=== PATIENT | male | born 1960 | race Caucasian/White ===

== ENCOUNTER 2016-08-10 07:15 | Emergency (ER) | payer SELFPAY ==
[~2016-08-10] VITALS: Ht 177.8 cm; Wt 111.5 kg
[~2016-08-10 07:15] MED LIST: ALBU8I INH; ALLO300T2 PO; ATEN-102 PO; ATOR20TA PO; CONTOUR NEXT EZ BLEZ XX; HYDR10SO PO; INSU-118 SQ; LISI40TA PO; NORC10TA2 PO; NOVOLOGSS SQ; PRED10PA PO; RANI150 PO; RIVA10 PO; WALKER STANDARD; ZITH250T PO
[2016-08-10 07:17] VITALS: BP 177/112; PULSE 88; RESP 20; TEMP 98.7; O2SAT 99
[2016-08-10 07:38] VITALS: BP 148/86
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
[2016-08-10] MEDS ORDERED: ALLO300T2 PO (07:48)
[2016-08-10] MEDS ORDERED: ATOR20TA15 PO (07:48)
[2016-08-10] MEDS ORDERED: NAPR500T PO (07:48)
[2016-08-10] MEDS ORDERED: ATEN50TA PO (07:48)
[2016-08-10] MEDS ORDERED: LISI40TA PO (07:48)
[2016-08-10] MEDS ORDERED: HYDR-3583 PO (07:48)
[2016-08-10] MEDS ORDERED: ALBUAER3 INH (07:48)
[2016-08-10] MEDS ORDERED: KETOROLAC TROMETHAMINE 60 MG/2 ML (IM) VIAL IM ONE (08:00)
--- NOTE | 2016-08-10 08:14 | RADRPT ---
EXAM DATE/TIME: 08/10/2016 08:07 [facility] COMPARISON: No previous studies available for comparison. INDICATIONS : Fall, left hand pain and swelling. MEDICAL HISTORY : None. SURGICAL HISTORY : None. ENCOUNTER: Initial ACUITY: 3 days PAIN SCORE: 9/10 LOCATION: Left hand FINDINGS: Normal bone density. Joint space widths are intact. There is an impacted nondisplaced fracture of the distal radial metaphysis with intra-articular extension. CONCLUSION: Distal radius fracture is noted with intra-articular extension. Mayo Fields MD on August 10, 2016 at 8:12 Board Certified Radiologist. This report was verified electronically.
--- NOTE | 2016-08-10 08:15 | RADRPT ---
EXAM DATE/TIME: 08/10/2016 08:05 [facility] COMPARISON: HAND LEFT COMPLETE ([id number]), August 10, 2016, 8:07. INDICATIONS : Fall, left wrist pain and swelling. MEDICAL HISTORY : None. SURGICAL HISTORY : None. ENCOUNTER: Initial ACUITY: 3 days PAIN SCORE: 9/10 LOCATION: Left wrist FINDINGS: There is a fracture of the distal radial metaphysis identified with intra-articular extension and mil d impaction. No other fractures are seen. Normal bone density. CONCLUSION: Distal radius fracture. Mayo Fields MD on August 10, 2016 at 8:13 Board Certified Radiologist. This report was verified electronically.
== END 2016-08-10 08:45 | disposition home or self-care (01) ==
LOC: NEPK 07:15
DX: S52.592A Other fractures of lower end of left radius, initial encounter for closed fracture (principal); I10 Essential (primary) hypertension; J45.909 Unspecified asthma, uncomplicated; M10.9 Gout, unspecified; W01.0XXA Fall on same level from slipping, tripping and stumbling without subsequent striking against object, initial encounter; Y93.9 Activity, unspecified; Y92.9 Unspecified place or not applicable; Y99.9 Unspecified external cause status
CPT/HCPCS: 73110; 73130; 96372; 99283; J1885

== ENCOUNTER 2017-05-19 09:38 | Inpatient (IN) | payer SELFPAY ==
[~2017-05-19] VITALS: Ht 177.8 cm; Wt 105.4 kg
[~2017-05-19 09:38] MED LIST changes: -ALBU8I INH; +ALBUAER3 INH; -ATEN-102 PO; +ATEN50TA PO; -ATOR20TA PO; +ATOR20TA15 PO; -CONTOUR NEXT EZ BLEZ XX; +HYDR-3583 PO; -HYDR10SO PO; -INSU-118 SQ; +NAPR500T2 PO; -NORC10TA2 PO; -NOVOLOGSS SQ; -PRED10PA PO; -RANI150 PO; -RIVA10 PO; -WALKER STANDARD; -ZITH250T PO
[2017-05-19 09:52] VITALS: BP 108/73; PULSE 104; RESP 20; TEMP 97.8; O2SAT 99
[2017-05-19] MEDS ORDERED: SODIUM CHLOR 0.9% 1000 ML INJ 1,000 ML IV ONE ×2 (10:15)
[2017-05-19] MEDS ORDERED: ONDANSETRON HCL 4 MG/2 ML VIAL IV PUSH ONE (10:15)
--- NOTE | 2017-05-19 10:18 | PD ---
HPI Chief Complaint: General Weakness Time Seen by Provider: 10:01 Travel History International Travel<30 days: No Contact w/Intl Traveler<30days: No Traveled to known affect area: No History of Present Illness HPI This 56-year-old male says he feels like he has no energy and he feels very weak. He says he been sick since the middle of April. He started off with having shaking and sweating. He was coughing a lot for about a week. He says he had a 26 pound weight loss since illness started. His coughing has subsided somewhat. He has been having diarrhea for the last week or so. He has not been on any antibiotics. He had surgery for colon cancer about 20 years ago. Says he has not been eating. He does not smoke cigarettes. He drinks daily PFSH Past Medical History Arthritis: Yes Asthma: Yes Autoimmune Disease: No Cancer: Yes (COLON CA) Cardiovascular Problems: No Chemotherapy: Yes Cerebrovascular Accident: Yes Diabetes: No Endocrine: No Gastrointestinal Disorders: Yes (GERD) Gout: Yes Genitourinary: No Hepatitis: No Hiatal Hernia: No Hypertension: Yes Immune Disorder: No Implanted Vascular Access Dvce: Yes Musculoskeletal: Yes (LEFT HIP, SCIATICA) Neurologic: No Psychiatric: No Reproductive: No Respiratory: Yes (ASTHMA) Past Surgical History Abdominal Surgery: Yes (COLON RESECTION 1996) AICD: No Body Medical Devices: LEFT ANKLE PINS, SCREWS Cardiac Surgery: No Ear Surgery: No Endocrine Surgery: No Eye Surgery: Yes (LEFT CATARACT) Genitourinary Surgery: No Joint Replacement: No Oral Surgery: Yes (TONSILLECTOMY) Pacemaker: No Thoracic Surgery: No Social History Alcohol Use: Yes (occ) Tobacco Use: No Substance Use: No Allergies-Medications (Allergen,Severity, Reaction): Coded Allergies: shellfish derived (Unverified Allergy, Severe, EDEMA, HIVES, 05/19/17) Reported Meds & Prescriptions Reported Meds & Active Scripts Active Reported Lidoderm (Lidocaine) 5 % Adh..patch Flexeril (Cyclobenzaprine HCl) 10 Mg Tab 10 Mg PO TID Proair Hfa 8.5 GM Inh (Albuterol Sulfate) 90 Mcg/Act Aer 2 Puff INH BID PRN 108 mcg/actuation Naproxen 500 Mg Tab 500 Mg PO BID Allopurinol 300 Mg Tab 300 Mg PO DAILY Atorvastatin (Atorvastatin Calcium) 20 Mg Tab 20 Mg PO HS Atenolol 50 Mg Tab 50 Mg PO DAILY Lisinopril 40 Mg Tab 40 Mg PO DAILY Review of Systems General / Constitutional: Positive: Chills, No: Fever Eyes: No: Diploplia, Blurred Vision HENT: No: Headaches Cardiovascular: No: Chest Pain or Discomfort, Palpitations Respiratory: Positive: Cough, No: Shortness of Breath Gastrointestinal: Positive: Nausea, Diarrhea, Loss of Appetite Genitourinary: No: Urgency, Frequency Musculoskeletal: Positive: Myalgias, No: Arthralgias Skin: No Rash Neurologic: Positive: Weakness Psychiatric: No: Anxiety, Depression Hematologic/Lymphatic: No: Easy Bruising Physical Exam Narrative GENERAL: Well-developed male. Blood pressure is 108/73 SKIN: Focused skin assessment warm/dry. HEAD: Atraumatic. Normocephalic. EYES: Pupils equal and round. No scleral icterus. No injection or drainage. ENT: No nasal bleeding or discharge. Mucous membranes pink and moist. NECK: Trachea midline. No JVD. CARDIOVASCULAR: Regular rate and rhythm. No murmur appreciated. RESPIRATORY: No accessory muscle use. Clear to auscultation. Breath sounds equal bilaterally. GASTROINTESTINAL: Abdomen soft, non-tender, nondistended. Hepatic and splenic margins not palpable. MUSCULOSKELETAL: No obvious deformities. No clubbing. No cyanosis. No edema. Some mottling of the lower extremities. Dorsalis pedal pulses are intact NEUROLOGICAL: Awake and alert. No obvious cranial nerve deficits. Motor grossly within normal limits. Normal speech. PSYCHIATRIC: Appropriate mood and affect; insight and judgment normal. Data Data Last Documented VS Vital Signs Date Time Temp Pulse Resp B/P (MAP) Pulse Ox O2 Delivery O2 Flow Rate FiO2 05/19/17 09:52 97.8 104 20 108/73 (85) 99 Orders Orders Complete Blood Count With Diff (05/19/17 10:11) Comprehensive Metabolic Panel (05/19/17 10:11) Urinalysis - C+S If Indicated (05/19/17 10:11) Magnesium (Mg) (05/19/17 10:11) Thyroid Stimulating Hormone (05/19/17 10:11) Enteric Path (Stool) (05/19/17 10:11) C Diff Toxin Pcr (05/19/17 10:11) Influenzae A/B Antigen (05/19/17 10:11) Chest, Single Ap (05/19/17 10:11) Sodium Chlor 0.9% 1000 Ml Inj (Ns 1000 M (05/19/17 10:15) Sodium Chlor 0.9% 1000 Ml Inj (Ns 1000 M (05/19/17 10:15) Ondansetron Inj (Zofran Inj) (05/19/17 10:15) Blood Culture (05/19/17 10:11) Lactic Acid (05/19/17 10:11) Labs Laboratory Tests Test 05/19/17 10:35 05/19/17 10:41 White Blood Count 13.2 TH/MM3 Red Blood Count 3.19 MIL/MM3 Hemoglobin 10.1 GM/DL Hematocrit 31.4 % Mean Corpuscular Volume 98.5 FL Mean Corpuscular Hemoglobin 31.8 PG Mean Corpuscular Hemoglobin Concent 32.3 % Red Cell Distribution Width 15.6 % Platelet Count 543 TH/MM3 Mean Platelet Volume 7.8 FL Neutrophils (%) (Auto) 88.3 % Lymphocytes (%) (Auto) 5.2 % Monocytes (%) (Auto) 3.3 % Eosinophils (%) (Auto) 0.4 % Basophils (%) (Auto) 2.8 % Neutrophils # (Auto) 11.6 TH/MM3 Lymphocytes # (Auto) 0.7 TH/MM3 Monocytes # (Auto) 0.4 TH/MM3 Eosinophils # (Auto) 0.1 TH/MM3 Basophils # (Auto) 0.4 TH/MM3 CBC Comment AUTO DIFF Blood Urea Nitrogen 51 MG/DL Creatinine 2.20 MG/DL Random Glucose 147 MG/DL Total Protein 8.8 GM/DL Albumin 2.1 GM/DL Calcium Level 9.1 MG/DL Magnesium Level 1.7 MG/DL Alkaline Phosphatase 167 U/L Aspartate Amino Transf (AST/SGOT) 103 U/L Alanine Aminotransferase (ALT/SGPT) 135 U/L Total Bilirubin 0.4 MG/DL Sodium Level 133 MEQ/L Potassium Level 4.8 MEQ/L Chloride Level 105 MEQ/L Carbon Dioxide Level 15.2 MEQ/L Anion Gap 13 MEQ/L Estimat Glomerular Filtration Rate 31 ML/MIN Thyroid Stimulating Hormone 3rd Gen 2.700 uIU/ML Lactic Acid Level 1.2 mmol/L MDM Medical Decision Making Medical Screen Exam Complete: Yes Emergency Medical Condition: Yes Medical Record Reviewed: Yes Differential Diagnosis Differential includes pneumonia, gastroenteritis, electrolyte imbalance, Narrative Course Chest x-ray is negative. His hemoglobin is 10 with a white count of 13.2. BUN is 51 with creatinine of 2.2. Lactic acid 1.2. Bicarb is 15. Influenza test is positive for influenza A Diagnosis Primary Impression: Influenza A Additional Impression: Dehydration Sony Edouard MD May 19, 2017 10:18
[2017-05-19 10:50] LABS: AUTOMATED NEUTROPHIL # 11.6 TH/MM3 (1.8-7.7); BASOPHIL # 0.4 TH/MM3 (0-0.2); BASOPHIL % 2.8 % (0.0-2.0); EOSINOPHIL # 0.1 TH/MM3 (0-0.4); EOSINOPHIL % 0.4 % (0.0-4.0); HEMATOCRIT 31.4 % (39.0-51.0); HEMOGLOBIN 10.1 GM/DL (13.0-17.0); LYMPH % 5.2 % (9.0-44.0); LYMPHOCYTE # 0.7 TH/MM3 (1.0-4.8); MEAN CELL VOLUME 98.5 FL (80.0-100.0); MEAN CORPUSCULAR HEMOGLOBIN 31.8 PG (27.0-34.0); MEAN CORPUSCULAR HGB CONC 32.3 % (32.0-36.0); MEAN PLATELET VOLUME 7.8 FL (7.0-11.0); MONO % 3.3 % (0.0-8.0); MONOCYTE # 0.4 TH/MM3 (0-0.9); NEUT % 88.3 % (16.0-70.0); PLATELET COUNT 543 TH/MM3 (150-450); RED BLOOD COUNT 3.19 MIL/MM3 (4.50-5.90); RED CELL DISTRIBUTION WIDTH 15.6 % (11.6-17.2); WHITE BLOOD COUNT 13.2 TH/MM3 (4.0-11.0)
--- NOTE | 2017-05-19 10:55 | RADRPT ---
EXAM DATE/TIME: 05/19/2017 10:16 [facility] COMPARISON: CHEST PA & LAT, October 03, 2015, 20:08. CHEST SINGLE AP, October 19, 2014, 11:50. INDICATIONS : Cough, weight loss, diarrhea, loss of appetite. MEDICAL HISTORY : Hypertension. Gastroesophageal reflux disease. Carcinoma, colon. Tinnitus. CVA. Asthma. Sciatica. Gout. Chemotherapy. SURGICAL HISTORY : Tonsillectomy. Orif left foot. Colon surgery. ENCOUNTER: Initial ACUITY: 2 weeks PAIN SCORE: 0/10 LOCATION: chest FINDINGS: Portable AP view of the chest demonstrates a normal-sized cardiac silhouette. No effusion, consolidat ion, or pneumothorax is identified. The bones and soft tissues demonstrate no acute finding. There ar e multiple old left rib fractures. There is a stable displaced ununited left mid clavicle fracture. CONCLUSION: 1. No acute cardiopulmonary abnormality is identified. 2. Stable old left mid clavicle fracture and multiple old left rib fractures. Dariusz Arreguin MD on May 19, 2017 at 10:53 Board Certified Radiologist. This report was verified electronically.
[2017-05-19 11:02] LABS: CHLORIDE 105 MEQ/L (98-107); SODIUM (NA) 133 MEQ/L (136-145)
[2017-05-19 11:05] LABS: ALBUMIN 2.1 GM/DL (3.4-5.0); BICARBONATE 15.2 MEQ/L (21.0-32.0); BLOOD UREA NITROGEN 51 MG/DL (7-18); CALCIUM 9.1 MG/DL (8.5-10.1); GLUCOSE,RANDOM 147 MG/DL (74-106); MAGNESIUM 1.7 MG/DL (1.5-2.5)
[2017-05-19 11:08] LABS: ALT (GPT) 135 U/L (12-78); AST (GOT) 103 U/L (15-37); GLOMERULAR FILTRATION RATE 31 ML/MIN (>89)
[2017-05-19 11:10] LABS: TOTAL BILIRUBIN ADULT 0.4 MG/DL (0.2-1.0); TOTAL PROTEIN 8.8 GM/DL (6.4-8.2)
[2017-05-19] MEDS ORDERED: CYCL10TA PO (11:10)
[2017-05-19] MEDS ORDERED: LIDO1ADH4 (11:10)
[2017-05-19 11:11] LABS: ALKALINE PHOSPHATASE 167 U/L (45-117)
[2017-05-19 11:32] VITALS: BP 97/57; PULSE 88; O2SAT 100
[2017-05-19 12:30] VITALS: BP 118/67; PULSE 82; RESP 26; TEMP 98.6; O2SAT 100
[2017-05-19 16:00] VITALS: BP 122/77; PULSE 90; RESP 26; TEMP 98.3
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
[2017-05-19] MEDS ORDERED: RESP: ALBUTEROL 1.25 MG/3 ML NEB (PRN) NEB (17:15)
[2017-05-19 17:54] LABS: INTERNATIONAL NORMALIZED RATIO 1.1 RATIO; PROTHROMBIN TIME - PATIENT 11.1 SEC (9.8-11.6)
[2017-05-19] MEDS: SODIUM CHLOR 0.9% 1000 ML INJ 1,000 ML IV SCH (17:56)
[2017-05-19] MEDS: CYCLOBENZAPRINE HCL 10 MG TAB PO SCH (17:57)
[2017-05-19] MEDS: ACETAMINOPHEN/HYDROcodone 325 MG/5 MG TAB PO PRN (17:58)
[2017-05-19] MEDS: ATORVASTATIN 20 MG TAB PO SCH (19:33)
[2017-05-19 20:00] VITALS: BP 110/67; PULSE 80; RESP 20; TEMP 98.8; O2SAT 96
[2017-05-20] VITALS (8 sets, daily range): BP systolic 94–133; BP diastolic 54–73; PULSE 72–88; RESP 18–25; TEMP 98.3–98.7; O2SAT 96–98
[2017-05-20] MEDS: ACETAMINOPHEN/HYDROcodone 325 MG/5 MG TAB PO PRN ×3 (03:07→17:37)
[2017-05-20] MEDS: SODIUM CHLOR 0.9% 1000 ML INJ 1,000 ML IV SCH ×2 (03:17→13:14)
[2017-05-20 04:57] LABS: CHLORIDE 111 MEQ/L (98-107); SODIUM (NA) 136 MEQ/L (136-145)
[2017-05-20 05:25] LABS: ALBUMIN 1.8 GM/DL (3.4-5.0); ALKALINE PHOSPHATASE 135 U/L (45-117); ALT (GPT) 105 U/L (12-78); AST (GOT) 73 U/L (15-37); BICARBONATE 13.2 MEQ/L (21.0-32.0); BLOOD UREA NITROGEN 42 MG/DL (7-18); CALCIUM 7.9 MG/DL (8.5-10.1); GLOMERULAR FILTRATION RATE 42 ML/MIN (>89); GLUCOSE,RANDOM 104 MG/DL (74-106); TOTAL BILIRUBIN ADULT 0.3 MG/DL (0.2-1.0); TOTAL PROTEIN 7.5 GM/DL (6.4-8.2)
[2017-05-20] MEDS: ATENOLOL 50 MG TAB PO SCH (09:00)
[2017-05-20] MEDS: CYCLOBENZAPRINE HCL 10 MG TAB PO SCH ×3 (09:00→15:50)
[2017-05-20 10:43] LABS: AUTOMATED NEUTROPHIL # 9.7 TH/MM3 (1.8-7.7); BASOPHIL % 0.2 % (0.0-2.0); EOSINOPHIL % 0.3 % (0.0-4.0); HEMATOCRIT 27.2 % (39.0-51.0); HEMOGLOBIN 8.8 GM/DL (13.0-17.0); LYMPH % 6.7 % (9.0-44.0); LYMPHOCYTE # 0.7 TH/MM3 (1.0-4.8); MEAN CELL VOLUME 99.6 FL (80.0-100.0); MEAN CORPUSCULAR HEMOGLOBIN 32.2 PG (27.0-34.0); MEAN CORPUSCULAR HGB CONC 32.3 % (32.0-36.0); MEAN PLATELET VOLUME 6.6 FL (7.0-11.0); MONO % 5.2 % (0.0-8.0); MONOCYTE # 0.6 TH/MM3 (0-0.9); NEUT % 87.6 % (16.0-70.0); PLATELET COUNT 628 TH/MM3 (150-450); RED BLOOD COUNT 2.73 MIL/MM3 (4.50-5.90); RED CELL DISTRIBUTION WIDTH 15.1 % (11.6-17.2)
[2017-05-20] MEDS ORDERED: diphenhydrAMINE HCL 50 MG/ML VIAL IV PUSH ONE (11:15)
[2017-05-20] MEDS ORDERED: DIATRIZOATE MEGLUM/DIATRIZOATE SOD 9 ML CUP PO ONE (11:30)
[2017-05-20] MEDS ORDERED: IOHEXOL 350 MG/ML 10 ML VIAL (for RAD DIAG) IVCONTRAST ONE (13:51)
--- NOTE | 2017-05-20 14:07 | RADRPT ---
EXAM DATE/TIME: 05/20/2017 13:39 [facility] COMPARISON: No previous studies available for comparison. INDICATIONS : Lower abdominal pain, nausea, vomiting and diarrhea x 2 weeks. Loss of apetite. Weight loss. IV CONTRAST: 85 cc Omnipaque 350 (iohexol) IV ORAL CONTRAST: Prescribed oral contrast ingested. RADIATION DOSE: 21.53 CTDIvol (mGy) MEDICAL HISTORY : Carcinoma, colon. Gastroesophageal reflux disease. Cerebrovascular disease.Hypertension. Asthma. SURGICAL HISTORY : Colon resection. ENCOUNTER: Initial ACUITY: 2 weeks PAIN SCALE: 4/10 LOCATION: Bilateral lower quadrant TECHNIQUE: Volumetric scanning of the abdomen and pelvis was performed. Using automated exposure control and ad justment of the mA and/or kV according to patient size, radiation dose was kept as low as reasonably achievable to obtain optimal diagnostic quality images. DICOM format image data is available electro nically for review and comparison. FINDINGS: LOWER LUNGS: The visualized lower lungs are clear. LIVER: There is a nearly 10 cm low density heterogeneous process in the liver in the inferior aspect of the right lobe which may be multilocular abscess. Neoplastic mass would the additional consideration. The re is no evidence of biliary ductal dilatation. SPLEEN: Normal size without lesion. PANCREAS: Within normal limits. KIDNEYS: Normal in size and shape. There is no mass, stone or hydronephrosis. ADRENAL GLANDS: Within normal limits. VASCULAR: There is no aortic aneurysm. BOWEL/MESENTERY: There is mild heterogeneous wall thickening, diverticular involvement and adjacent fatty tissue indur ation involving the distal descending colon and several involving a section of the sigmoid colon in t he upper central pelvis. The appearance presumably reflect multifocal diverticulitis. There is no luana dence of obstruction. No extraluminal gas or fluid is identified. There is no evidence of mesenteric adenopathy. ABDOMINAL WALL: Within normal limits. RETROPERITONEUM: There is no lymphadenopathy. BLADDER: No wall thickening or mass. REPRODUCTIVE: Within normal limits. INGUINAL: There is no lymphadenopathy or hernia. MUSCULOSKELETAL: Total hip arthroplasty. Degenerative changes in the right hip and spine. Multiple healed low lateral left sided rib fractures. CONCLUSION: 2 separate abnormal appearing areas of the distal colon with appearance most consistent with multifoc al diverticulitis. Low density right lobe liver process is likely multilocular abscess which does not appear amenable to percutaneous drainage. Neoplastic mass would be the alternative possibility.. Dariusz Fajardo MD on May 20, 2017 at 13:56 Board Certified Radiologist. This report was verified electronically.
[2017-05-20 16:11] LABS: BILIRUBIN, URINE NEG (NEG); BLOOD, URINE NEG (NEG); GLUCOSE,URINE NEG (NEG); KETONE, URINE NEG (NEG); NITRITE,URINE NEG (NEG); URINE LEUKOCYTE ESTERASE NEG (NEG)
[2017-05-20 16:18] LABS: URINE COLOR STRAW (YELLW/STRAW)
[2017-05-20 16:20] LABS: AMORPHOUS SEDIMENT, URINE FEW; BACTERIA, URINE MOD /hpf; SQUAMOUS EPITHELIAL CELL URINE 0-5 /hpf (0-5)
[2017-05-20] MEDS: CIPROFLOXACIN 200 MG PREMIX 100 ML IV SCH (17:27)
[2017-05-20] MEDS: metroNIDAZOLE 500 MG INJ 100 ML IV SCH (17:27)
--- NOTE | 2017-05-20 18:00 | HHI.PR ---
Subjective Remarks Nursing reports that the patient is having intermittent watery stools. Is reporting to have some intermittent abdominal cramping. Patient did tolerate breakfast this morning. Says he feels somewhat better than yesterday in general. He also tolerated the CT scan well with contrast. Objective Vital Signs Date Time Temp Pulse Resp B/P (MAP) Pulse Ox O2 Delivery O2 Flow Rate FiO2 05/20/17 12:00 98.4 05/20/17 10:51 114/64 (81) 05/20/17 09:04 98.5 88 19 94/59 (71) 05/20/17 03:31 98.4 88 18 96/68 (77) 98 05/20/17 00:00 98.4 75 18 106/54 (71) 96 05/19/17 20:00 98.8 80 20 110/67 (81) 96 I/O 05/19/17 05/19/17 05/19/17 05/20/17 05/20/17 05/20/17 07:00 15:00 23:00 07:00 15:00 23:00 Intake Total 2000 ml 480 ml 1300 ml 700 ml Output Total 450 ml 300 ml Balance 2000 ml 30 ml 1000 ml 700 ml Intake Oral 480 ml IV Total 2000 ml 1300 ml 700 ml Output Urine Total 450 ml 300 ml # Bowel Movements 0 Result Diagram: 05/20/17 1003 05/20/17 0425 Objective Remarks Lying in bed, no acute distress, awake, alert Abdomen is soft, no lv tenderness palpation, nondistended A/P Assessment and Plan 56-year-old white male being admitted for possible sepsis and acute kidney injury Possible sepsis secondary to influenza -Blood cultures have been drawn -Given lack of fevers, will hold off on administering antibiotics for now -Chest x-ray negative upon admission OMAR -Improving with IV fluids, trend in a.m. Transaminitis -Likely fatty liver, improving, trend in a.m. diarrhea w/ weight loss -C. difficile is negative, performed CT scan which shows most likely diverticulitis, starting Cipro and Flagyl -Checking stool Hemoccult given past history of colon CA Hypertension -Continue home atenolol, holding the lisinopril in light of OMAR Kwame Vaughn MD May 20, 2017 18:00
[2017-05-20] MEDS: ATORVASTATIN 20 MG TAB PO SCH (20:33)
[2017-05-21] VITALS: BP 106/56; PULSE 75; RESP 20; TEMP 98.4; O2SAT 98
[2017-05-21] MEDS: SODIUM CHLOR 0.9% 1000 ML INJ 1,000 ML IV SCH ×2 (00:16→10:39)
[2017-05-21] MEDS: metroNIDAZOLE 500 MG INJ 100 ML IV SCH ×3 (00:16→16:00)
[2017-05-21] MEDS: ACETAMINOPHEN/HYDROcodone 325 MG/5 MG TAB PO PRN ×2 (00:22→10:37)
[2017-05-21 04:00] VITALS: BP 105/72; PULSE 76; RESP 22; TEMP 97.5; O2SAT 100
[2017-05-21] MEDS: CIPROFLOXACIN 200 MG PREMIX 100 ML IV SCH (04:29)
[2017-05-21 08:26] VITALS: BP 111/74; PULSE 92; TEMP 97.7; O2SAT 99
[2017-05-21] MEDS: CYCLOBENZAPRINE HCL 10 MG TAB PO SCH ×2 (08:26→12:15)
[2017-05-21] MEDS: ATENOLOL 50 MG TAB PO SCH (08:27)
[2017-05-21 12:00] VITALS: BP 124/76; PULSE 106; RESP 20; TEMP 97.1; O2SAT 100
[2017-05-21] MEDS ORDERED: CIPR750T2 PO (15:52)
[2017-05-21] MEDS ORDERED: METR1TAB76 PO (15:52)
--- NOTE | 2017-05-21 15:53 | HHI.DCPOC ---
Discharge Care Plan Diagnosis: (1) Diverticulitis Goals to Promote Your Health * To prevent worsening of your condition and complications * To maintain your health at the optimal level Directions to Meet Your Goals Take your medications as prescribed Follow your dietary instruction Follow activity as directed Keep your appointments as scheduled Take your immunizations and boosters as scheduled If your symptoms worsen call your PCP, if no PCP go to Urgent Care Center or Emergency Room Smoking is Dangerous to Your Health. Avoid second hand smoke Call the 24-hour hour crisis hotline for domestic abuse at Kwame Wild MD May 21, 2017 15:53
[2017-05-21] MEDS ORDERED: TRAM50TA PO (15:55)
--- NOTE | 2017-05-21 15:56 | HHI.DS ---
Discharge Summary Admission Date May 19, 2017 at 11:37 Discharge Date: May 21, 2017 Admitting Diagnosis ACUTE KIDNEY INJURY, DEHYDRATION, INFLUENZA (1) Diverticulitis ICD Code: K57.92 - Diverticulitis of intestine, part unspecified, without perforation or abscess without bleeding (2) Influenza A ICD Code: J10.1 - Influenza due to other identified influenza virus with other respiratory manifestations Status: Acute (3) Dehydration ICD Code: E86.0 - Dehydration Status: Acute (4) OMAR (acute kidney injury) ICD Code: N17.9 - Acute kidney injury Status: Acute Procedures none Brief History - From Admission 56-year-old white male being admitted for possible sepsis and acute kidney injury. Patient reports being in his usual state of health until about 2 weeks ago after returning from a flight from [place] he began feeling overall weakness , poor endurance, decreased appetite, increased dyspnea upon rest, intermittent nausea and diarrhea. He denies having any black stool or bright red blood per rectum. Reports walking shorter distances due to exhaustion and dyspnea. Patient does report a mysterious 20 pound weight loss in the last few months and noticing a change in his pant size. CBC/BMP: 05/20/17 1003 05/20/17 0425 Significant Findings Laboratory Tests Test 05/19/17 10:35 05/19/17 10:41 05/19/17 17:30 05/19/17 22:50 White Blood Count 13.2 TH/MM3 (4.0-11.0) Red Blood Count 3.19 MIL/MM3 (4.50-5.90) Hemoglobin 10.1 GM/DL (13.0-17.0) Hematocrit 31.4 % (39.0-51.0) Platelet Count 543 TH/MM3 (150-450) Neutrophils (%) (Auto) 88.3 % (16.0-70.0) Lymphocytes (%) (Auto) 5.2 % (9.0-44.0) Basophils (%) (Auto) 2.8 % (0.0-2.0) Neutrophils # (Auto) 11.6 TH/MM3 (1.8-7.7) Lymphocytes # (Auto) 0.7 TH/MM3 (1.0-4.8) Basophils # (Auto) 0.4 TH/MM3 (0-0.2) Platelet Estimate HIGH (NORMAL) Blood Urea Nitrogen 51 MG/DL (7-18) Creatinine 2.20 MG/DL (0.60-1.30) Random Glucose 147 MG/DL (74-106) Total Protein 8.8 GM/DL (6.4-8.2) Albumin 2.1 GM/DL (3.4-5.0) Alkaline Phosphatase 167 U/L (45-117) Aspartate Amino Transf (AST/SGOT) 103 U/L (15-37) Alanine Aminotransferase (ALT/SGPT) 135 U/L (12-78) Sodium Level 133 MEQ/L (136-145) Carbon Dioxide Level 15.2 MEQ/L (21.0-32.0) Estimat Glomerular Filtration Rate 31 ML/MIN (>89) Test 05/20/17 04:25 05/20/17 10:03 05/20/17 15:53 Blood Urea Nitrogen 42 MG/DL (7-18) Creatinine 1.70 MG/DL (0.60-1.30) Albumin 1.8 GM/DL (3.4-5.0) Calcium Level 7.9 MG/DL (8.5-10.1) Alkaline Phosphatase 135 U/L (45-117) Aspartate Amino Transf (AST/SGOT) 73 U/L (15-37) Alanine Aminotransferase (ALT/SGPT) 105 U/L (12-78) Chloride Level 111 MEQ/L (98-107) Carbon Dioxide Level 13.2 MEQ/L (21.0-32.0) Estimat Glomerular Filtration Rate 42 ML/MIN (>89) Red Blood Count 2.73 MIL/MM3 (4.50-5.90) Hemoglobin 8.8 GM/DL (13.0-17.0) Hematocrit 27.2 % (39.0-51.0) Platelet Count 628 TH/MM3 (150-450) Mean Platelet Volume 6.6 FL (7.0-11.0) Neutrophils (%) (Auto) 87.6 % (16.0-70.0) Lymphocytes (%) (Auto) 6.7 % (9.0-44.0) Neutrophils # (Auto) 9.7 TH/MM3 (1.8-7.7) Lymphocytes # (Auto) 0.7 TH/MM3 (1.0-4.8) Urine Bacteria MOD /hpf (NONE) Imaging Last Impressions Abdomen/Pelvis CT 05/20/17 0000 Signed Impressions: Service Date/Time: Saturday, May 20, 2017 13:39 - CONCLUSION: 2 separate abnormal appearing areas of the distal colon with appearance most consistent with multifocal diverticulitis. Low density right lobe liver process is likely multilocular abscess which does not appear amenable to percutaneous drainage. Neoplastic mass would be the alternative possibility.. Dariusz Fajardo MD Chest X-Ray 05/19/17 1011 Signed Impressions: Service Date/Time: Friday, May 19, 2017 10:16 - CONCLUSION: 1. No acute cardiopulmonary abnormality is identified. 2. Stable old left mid clavicle fracture and multiple old left rib fractures. Dariusz Arreguin MD PE at Discharge Sitting up in bed, eating, no acute distress, abdomen is soft, obese, nontender Hospital Course Patient was admitted, started on IV hydration. CT abdomen was performed which showed some diverticulitis, patient was started on antibiotics. Patient's p.o. intake and abdominal cramping had improved and his diarrhea resolved. Patient has met maximum benefit from hospitalization and is clinically stable for discharge. Patient was counseled to follow-up closely with GI within the next week given his history of colon cancer in the past. Pt Condition on Discharge: Stable Discharge Disposition: Discharge Home Discharge Time: <= 30 minutes Discharge Instructions DIET: Follow Instructions for: Soft Diet Activities you can perform: Weight Bearing as Dee [place], See Additionl Instruction Other Activity Instructions: use home walker as needed while ambulating Follow up Referrals: Gastroenterology with Ayan David MD PCP Follow-up - 1 Week New Medications: Ciprofloxacin (Ciprofloxacin) 750 Mg Tab 750 MG PO BID for Infection, #24 TAB 0 Refills Metronidazole (Metronidazole) 500 Mg Tab 500 MG PO QID for Infection, #28 TAB 0 Refills Tramadol (Tramadol) 50 Mg Tab 50 MG PO Q8H PRN for PAIN, #10 TAB 0 Refills Continued Medications: Albuterol 8.5 GM Inh (Proair Hfa 8.5 GM Inh) 90 Mcg/Act Aer 2 PUFF INH BID PRN for SHORTNESS OF BREATH, #1 INHALER 0 Refills 108 mcg/actuation Allopurinol (Allopurinol) 300 Mg Tab 300 MG PO DAILY for Gout, #30 TAB 0 Refills Atenolol (Atenolol) 50 Mg Tab 50 MG PO DAILY for Blood Pressure Management, #30 TAB 0 Refills Atorvastatin (Atorvastatin) 20 Mg Tab 20 MG PO HS for Cholesterol Management, #30 TAB 0 Refills Cyclobenzaprine (Flexeril) 10 Mg Tab 10 MG PO TID for Muscle Spasm, #90 TAB 0 Refills Lidocaine (Lidoderm) 5 % Adh..patch Lisinopril (Lisinopril) 40 Mg Tab 40 MG PO DAILY for Blood Pressure Management, #30 TAB 0 Refills Discontinued Medications: Naproxen (Naproxen) 500 Mg Tab 500 MG PO BID, #60 TAB 0 Refills Kwame Wild MD May 21, 2017 15:56
== END 2017-05-21 17:10 | disposition home or self-care (01) | DRG 392 ==
LOC: PHED 09:38 → PHEDA 11:37 → PHICU 12:28 → PH3A 05-21 10:49
PROVIDERS: ADMIT Hospitalist; ATTEND Hospitalist
DX: K57.32 Diverticulitis of large intestine without perforation or abscess without bleeding (principal); N17.9 Acute kidney failure, unspecified; E86.0 Dehydration; J10.1 Influenza due to other identified influenza virus with other respiratory manifestations; R74.0 Nonspecific elevation of levels of transaminase and lactic acid dehydrogenase [LDH]; I10 Essential (primary) hypertension; J45.909 Unspecified asthma, uncomplicated; R63.4 Abnormal weight loss; K21.9 Gastro-esophageal reflux disease without esophagitis; Z85.038 Personal history of other malignant neoplasm of large intestine; Z87.891 Personal history of nicotine dependence
CPT/HCPCS: 71045; 74177; 80053; 81001; 83605; 83735; 84443; 85025; 85610; 87040; 87086; 87493; 87506; 87804; 94664; 96361; 96374; J0744; J1200; J2405; J7030; J7613; Q9963; Q9967

== ENCOUNTER 2017-06-05 13:48 | Inpatient (IN) | payer SELFPAY ==
[~2017-06-05] VITALS: Ht 177.8 cm; Wt 109.4 kg
[2017-06-05] VITALS (8 sets, daily range): BP systolic 111–169; BP diastolic 62–95; PULSE 85–102; RESP 18–20; TEMP 97.2–97.4; O2SAT 96–100
[~2017-06-05 13:48] MED LIST changes: +CIPR750T2 PO; +CYCL10TA PO; -HYDR-3583 PO; +LIDO1ADH4; +METR1TAB76 PO; -NAPR500T2 PO; +TRAM50TA PO
[2017-06-05] MEDS ORDERED: PRED10 PO (14:43)
[2017-06-05] MEDS ORDERED: NAPR500T2 PO (14:43)
[2017-06-05] MEDS ORDERED: SODIUM CHLOR 0.9% 1000 ML INJ 1,000 ML IV SCH (15:00)
--- NOTE | 2017-06-05 15:09 | PD ---
HPI Chief Complaint: General Weakness Time Seen by Provider: 14:40 Travel History International Travel<30 days: No Contact w/Intl Traveler<30days: No Traveled to known affect area: No History of Present Illness HPI 56-year-old male complains of generalized malaise and weakness and shortness of breath. Patient states that his symptoms started about a month ago. Patient was admitted to [facility] December 17 discharge May 21 with diagnosis of diverticulitis, influenza A, dehydration, acute kidney injury, liver abscess versus mass. Patient was given prescription for Cipro, Flagyl and tramadol. Patient states that he took the medication as directed. Patient has history of colon cancer status post partial colectomy and chemotherapy about 20 years ago. Patient has history of asthma hyperlipidemia and hypertension. Patient denies any history of alcohol abuse. Patient states that he has mild discomfort on lower abdomen. Patient denies any pain radiation. Patient denies any dysuria or frequency. Patient denies any fever chills. PFSH Past Medical History Arthritis: Yes Asthma: Yes Autoimmune Disease: No Cancer: Yes (COLON CA) Cardiovascular Problems: Yes Chemotherapy: Yes Cerebrovascular Accident: Yes Diabetes: No Endocrine: No Gastrointestinal Disorders: Yes (GERD) Gout: Yes Genitourinary: No Hepatitis: No Hiatal Hernia: No Hypertension: Yes Immune Disorder: No Implanted Vascular Access Dvce: Yes Musculoskeletal: Yes (LEFT HIP, SCIATICA) Neurologic: No Psychiatric: No Reproductive: No Respiratory: Yes (ASTHMA) Influenza Vaccination: No Past Surgical History Abdominal Surgery: Yes (COLON RESECTION 1996) AICD: No Body Medical Devices: LEFT ANKLE PINS, SCREWS Cardiac Surgery: No Ear Surgery: No Endocrine Surgery: No Eye Surgery: Yes (LEFT CATARACT) Genitourinary Surgery: No Joint Replacement: No Neurologic Surgery: No Oral Surgery: Yes (TONSILLECTOMY) Pacemaker: No Thoracic Surgery: No Other Surgery: Yes Social History Alcohol Use: Yes (usually daily, none x 3 days) Tobacco Use: No Substance Use: No Allergies-Medications (Allergen,Severity, Reaction): Coded Allergies: shellfish derived (Unverified Allergy, Severe, EDEMA, HIVES, 06/05/17) Reported Meds & Prescriptions Reported Meds & Active Scripts Active Reported Prednisone 10 Mg Tab 10 Mg PO DAILY Naproxen 500 Mg Tab 500 Mg PO BID Lidoderm (Lidocaine) 5 % Adh..patch Flexeril (Cyclobenzaprine HCl) 10 Mg Tab 10 Mg PO TID Proair Hfa 8.5 GM Inh (Albuterol Sulfate) 90 Mcg/Act Aer 2 Puff INH BID PRN 108 mcg/actuation Allopurinol 300 Mg Tab 300 Mg PO DAILY Atorvastatin (Atorvastatin Calcium) 20 Mg Tab 20 Mg PO HS Atenolol 50 Mg Tab 50 Mg PO DAILY Lisinopril 40 Mg Tab 40 Mg PO DAILY Review of Systems General / Constitutional: No: Fever Eyes: No: Visual changes HENT: No: Headaches Cardiovascular: No: Chest Pain or Discomfort Respiratory: Positive: Shortness of Breath Gastrointestinal: Positive: Nausea, Abdominal Pain Genitourinary: No: Dysuria Musculoskeletal: No: Pain Skin: No Rash Neurologic: No: Weakness Psychiatric: No: Depression Endocrine: No: Polydipsia Hematologic/Lymphatic: No: Easy Bruising Physical Exam Narrative GENERAL: Well-nourished, well-developed patient. SKIN: Focused skin assessment warm/dry. HEAD: Normocephalic. EYES: Mild scleral icterus. No injection or drainage. NECK: Supple, trachea midline. No JVD or lymphadenopathy. CARDIOVASCULAR: Regular rate and rhythm without murmurs, gallops, or rubs. RESPIRATORY: Breath sounds equal bilaterally. No accessory muscle use. GASTROINTESTINAL: Abdomen soft, moderately distended. Patient has mild tenderness in palpation lower abdomen. No rebound tenderness. MUSCULOSKELETAL: No cyanosis, or edema. BACK: Nontender without obvious deformity. No CVA tenderness. Neurologic exam normal. Data Data Last Documented VS Vital Signs Date Time Temp Pulse Resp B/P (MAP) Pulse Ox O2 Delivery O2 Flow Rate FiO2 06/05/17 17:00 95 18 117/95 (102) 100 Room Air 06/05/17 13:57 97.2 Orders Orders Electrocardiogram (06/05/17 14:57) Complete Blood Count With Diff (06/05/17 14:57) Comprehensive Metabolic Panel (06/05/17 14:57) B-Type Natriuretic Peptide (06/05/17 14:57) Prothrombin Time / Inr (Pt) (06/05/17 14:57) Act Partial Throm Time (Ptt) (06/05/17 14:57) Blood Culture (06/05/17 14:57) Lipase (06/05/17 14:57) Urinalysis - C+S If Indicated (06/05/17 14:57) Magnesium (Mg) (06/05/17 14:57) Ammonia (06/05/17 14:57) Thyroid Stimulating Hormone (06/05/17 14:57) Phosphorus (Po4) (06/05/17 14:57) Chest, Single Ap (06/05/17 14:57) Ct Abd/Pel W/O Iv Contrast (06/05/17 14:57) Iv Access Insert/Monitor (06/05/17 14:57) Ecg Monitoring (06/05/17 14:57) Oximetry (06/05/17 14:57) Sodium Chlor 0.9% 1000 Ml Inj (Ns 1000 M (06/05/17 15:00) Lactic Acid (06/05/17 15:02) Ondansetron Inj (Zofran Inj) (06/05/17 17:00) Admit Order (Ed Use Only) (06/05/17 17:32) Piperacil-Tazo 2.25 Gm Premix (Zosyn 2.2 (06/05/17 17:45) Sodium Chlor 0.9% 1000 Ml Inj (Ns 1000 M (06/05/17 17:45) Calcium Gluconate Inj (Calcium Gluconate (06/05/17 17:45) Dextrose 50% In [place] (Vial) Inj (D50w (Vi (06/05/17 17:45) Insulin Human Regular Inj (Novolin R Inj (06/05/17 17:45) Labs Laboratory Tests Test 06/05/17 15:05 06/05/17 15:13 White Blood Count 12.1 TH/MM3 Red Blood Count 3.53 MIL/MM3 Hemoglobin 11.2 GM/DL Hematocrit 33.5 % Mean Corpuscular Volume 94.9 FL Mean Corpuscular Hemoglobin 31.7 PG Mean Corpuscular Hemoglobin Concent 33.4 % Red Cell Distribution Width 16.2 % Platelet Count 724 TH/MM3 Mean Platelet Volume 7.1 FL Neutrophils (%) (Auto) 80.0 % Lymphocytes (%) (Auto) 11.0 % Monocytes (%) (Auto) 5.9 % Eosinophils (%) (Auto) 1.7 % Basophils (%) (Auto) 1.4 % Neutrophils # (Auto) 9.7 TH/MM3 Lymphocytes # (Auto) 1.3 TH/MM3 Monocytes # (Auto) 0.7 TH/MM3 Eosinophils # (Auto) 0.2 TH/MM3 Basophils # (Auto) 0.2 TH/MM3 CBC Comment AUTO DIFF Differential Total Cells Counted 100 Neutrophils % (Manual) 70 % Band Neutrophils % 2 % Lymphocytes % 21 % Monocytes % 3 % Eosinophils % 2 % Neutrophils # (Manual) 9.0 TH/MM3 Metamyelocytes 1 % Myelocytes 1 % Differential Comment FINAL DIFF MANUAL Platelet Estimate HIGH Platelet Morphology Comment CLUMPED Red Cell Morphology Comment NORMAL Prothrombin Time 11.0 SEC Prothromb Time International Ratio 1.1 RATIO Activated Partial Thromboplast Time 28.2 SEC Blood Urea Nitrogen 32 MG/DL Creatinine 3.80 MG/DL Random Glucose 118 MG/DL Total Protein 9.4 GM/DL Albumin 2.5 GM/DL Calcium Level 8.9 MG/DL Phosphorus Level 4.3 MG/DL Magnesium Level 1.4 MG/DL Alkaline Phosphatase 90 U/L Aspartate Amino Transf (AST/SGOT) 49 U/L Alanine Aminotransferase (ALT/SGPT) 31 U/L Total Bilirubin 0.2 MG/DL Sodium Level 134 MEQ/L Potassium Level 5.7 MEQ/L Chloride Level 105 MEQ/L Carbon Dioxide Level 18.8 MEQ/L Anion Gap 10 MEQ/L Estimat Glomerular Filtration Rate 16 ML/MIN B-Type Natriuretic Peptide 35 PG/ML Lipase 443 U/L Thyroid Stimulating Hormone 3rd Gen 2.760 uIU/ML Lactic Acid Level 2.0 mmol/L Ammonia 29 MCMOL/L [facility] Medical Decision Making Medical Screen Exam Complete: Yes Emergency Medical Condition: Yes Interpretation(s) Last Impressions Chest X-Ray 06/05/[id number] Signed Impressions: Service Date/Time: Monday, June 05, 2017 15:23 - CONCLUSION: 1. No acute cardiopulmonary disease. Gary Tinsley MD Abdomen/Pelvis CT [id number]/05/[id number] Signed Impressions: Service Date/Time: Monday, June 05, 2017 15:40 - CONCLUSION: 1. 8.8 cm liver mass suspicious for metastatic disease or primary hepatic tumor. 2. Focal mural thickening distal sigmoid colon suspicious for malignancy. 3. Mural thickening in the mid left colon with surrounding inflammatory changes probably diverticulitis but cannot exclude mass. Overall mural thickening on the left side appears slightly improved from May 20. Luther Slaughter MD 1709 p.m. CBC WBC 12.1. Hemoglobin 11.2 hematocrit 33.5. Platelets 724. 80 neutrophil. Sodium 134. Potassium 5.7. Bicarb 18.8. BUN 32. Creatinine 3.8. GFR 16. Glucose 118. AST 49. Ammonia 29. Lipase 443. Differential Diagnosis Differential diagnosis including viral syndrome, bronchitis, pneumonia, colitis , UTI, sepsis. Narrative Course 56-year-old male with generalized malaise and weakness. Normal saline solution 1 25 cc an hour. Zofran 4 mg IV. Zosyn 2.25 g IV. D50 25 mL IV given. Novolin R 8 units IV given. Calcium gluconate 1 g IV given. Diagnosis Primary Impression: Diverticulitis Additional Impressions: Metastatic colon cancer to liver Acute kidney injury Hyperkalemia Admitting Information Admitting Physician Requests: Admit Lalo Adams MD Jun 05, 2017 15:09
[2017-06-05 15:28] LABS: AUTOMATED NEUTROPHIL # 9.7 TH/MM3 (1.8-7.7); BASOPHIL # 0.2 TH/MM3 (0-0.2); BASOPHIL % 1.4 % (0.0-2.0); EOSINOPHIL # 0.2 TH/MM3 (0-0.4); EOSINOPHIL % 1.7 % (0.0-4.0); HEMATOCRIT 33.5 % (39.0-51.0); HEMOGLOBIN 11.2 GM/DL (13.0-17.0); LYMPHOCYTE # 1.3 TH/MM3 (1.0-4.8); MEAN CELL VOLUME 94.9 FL (80.0-100.0); MEAN CORPUSCULAR HEMOGLOBIN 31.7 PG (27.0-34.0); MEAN CORPUSCULAR HGB CONC 33.4 % (32.0-36.0); MEAN PLATELET VOLUME 7.1 FL (7.0-11.0); MONO % 5.9 % (0.0-8.0); MONOCYTE # 0.7 TH/MM3 (0-0.9); PLATELET COUNT 724 TH/MM3 (150-450); RED BLOOD COUNT 3.53 MIL/MM3 (4.50-5.90); RED CELL DISTRIBUTION WIDTH 16.2 % (11.6-17.2); WHITE BLOOD COUNT 12.1 TH/MM3 (4.0-11.0)
[2017-06-05 15:36] LABS: CHLORIDE 105 MEQ/L (98-107); SODIUM (NA) 134 MEQ/L (136-145)
--- NOTE | 2017-06-05 15:38 | RADRPT ---
EXAM DATE/TIME: 06/05/2017 15:23 [facility] COMPARISON: CHEST SINGLE AP, May 19, 2017, 10:16. INDICATIONS : Shortness of breath. MEDICAL HISTORY : Hypertension. Gastroesophageal reflux disease. Carcinoma, colon. Tinnitus, CVA. Asthma. Sciatica.Gout . Chemotherapy SURGICAL HISTORY : Tonsillectomy. Orif left foot. Colon surgery ENCOUNTER: Initial ACUITY: 1 day PAIN SCORE: 0/10 LOCATION: Bilateral chest FINDINGS: A single view of the chest demonstrates the lungs to be symmetrically aerated without evidence of mas s, infiltrate or effusion. The cardiomediastinal contours are unremarkable. Redemonstration of heale d rib fractures and mid left clavicle fracture. Osseous structures are intact. CONCLUSION: 1. No acute cardiopulmonary disease. Gary Tinsley MD on June 05, 2017 at 15:35 Board Certified Radiologist. This report was verified electronically.
[2017-06-05 15:40] LABS: ALBUMIN 2.5 GM/DL (3.4-5.0); BICARBONATE 18.8 MEQ/L (21.0-32.0); BLOOD UREA NITROGEN 32 MG/DL (7-18); CALCIUM 8.9 MG/DL (8.5-10.1); GLUCOSE,RANDOM 118 MG/DL (74-106); MAGNESIUM 1.4 MG/DL (1.5-2.5)
[2017-06-05 15:41] LABS: INTERNATIONAL NORMALIZED RATIO 1.1 RATIO
[2017-06-05 15:43] LABS: ALT (GPT) 31 U/L (12-78); AST (GOT) 49 U/L (15-37); GLOMERULAR FILTRATION RATE 16 ML/MIN (>89); PHOSPHORUS 4.3 MG/DL (2.5-4.9)
[2017-06-05 15:44] LABS: TOTAL BILIRUBIN ADULT 0.2 MG/DL (0.2-1.0)
[2017-06-05 15:45] LABS: TOTAL PROTEIN 9.4 GM/DL (6.4-8.2)
[2017-06-05 15:46] LABS: ALKALINE PHOSPHATASE 90 U/L (45-117)
[2017-06-05 16:08] LABS: BANDS 2 % (0-6); LYMPHOCYTES 21 % (9-44); METAMYELOCYTES 1 % (0-1); MONOCYTES 3 % (0-8); MYELOCYTES 1 % (0-0); POLYS (SEG NEUTROPHILS) 70 % (16-70)
--- NOTE | 2017-06-05 16:15 | RADRPT ---
EXAM DATE/TIME: 06/05/2017 15:40 [facility] COMPARISON: CT ABDOMEN & PELVIS W CONTRAST, May 20, 2017, 13:39. INDICATIONS : Lower abdominal pain. General weakness. Diarrhea x 1 month. ORAL CONTRAST: No oral contrast ingested. RADIATION DOSE: 24.26 CTDIvol (mGy) ; Patient body habitus MEDICAL HISTORY : Cerebrovascular disease. Cardiovascular disease Gastroesophageal reflux disease.Hepatic lesions. Col on cancer. SURGICAL HISTORY : Colon resection. ENCOUNTER: Initial ACUITY: 4 - 6 days PAIN SCALE: 2/10 LOCATION: Bilateral lower quadrant TECHNIQUE: Volumetric scanning of the abdomen and pelvis was performed. Using automated exposure control and ad justment of the mA and/or kV according to patient size, radiation dose was kept as low as reasonably achievable to obtain optimal diagnostic quality images. DICOM format image data is available electro nically for review and comparison. FINDINGS: Comparison is May 20. There is a 8.8 cm lesion in the inferior right lobe of the liver suspiciou s for metastatic disease. There is focal mural thickening in the distal sigmoid colon suspicious for neoplasm. There is also fo bg mural thickening and pericolonic stranding in the mid left colon. Differential diagnosis includes mild diverticulitis or colonic mass. This is improved slightly since May 20 on the left side. Lung bases are clear. No acute findings in the spleen, adrenals, kidneys or pancreas. No calcified ga llstones. No bowel obstruction. Advanced osteoarthritis of the right hip. Left hip replacement. CONCLUSION: 1. 8.8 cm liver mass suspicious for metastatic disease or primary hepatic tumor. 2. Focal mural thickening distal sigmoid colon suspicious for malignancy. 3. Mural thickening in the mid left colon with surrounding inflammatory changes probably diverticu litis but cannot exclude mass. Overall mural thickening on the left side appears slightly improved fr om May 20. Luther Slaughter MD on June 05, 2017 at 16:04 Board Certified Radiologist. This report was verified electronically.
[2017-06-05] MEDS ORDERED: ONDANSETRON HCL 4 MG/2 ML VIAL IV PUSH ONE (17:00)
[2017-06-05] MEDS ORDERED: SODIUM CHLOR 0.9% 1000 ML INJ 1,000 ML IV ONE (17:45)
[2017-06-05] MEDS ORDERED: DEXTROSE 50% IN WATER 50 ML VIAL(D50) IV PUSH ONE (17:45)
[2017-06-05] MEDS ORDERED: INSULIN HUMAN REGULAR 1,000 UNITS/10 ML VIAL IV PUSH ONE (17:45)
[2017-06-05] MEDS ORDERED: CALCIUM GLUCONATE INJ 1 GM in DEXTROSE 5% IN WATER 100ML INJ 100 ML IV ONE ×2 (17:45)
[2017-06-05] MEDS ORDERED: PIPERACIL-TAZO 2.25 GM PREMIX 50 ML IV ONE (17:45)
[2017-06-05] MEDS ORDERED: NALOXONE HCL 0.4 MG/ML AMP IV PUSH PRN (18:15)
[2017-06-05] MEDS ORDERED: LORazepam 2 MG/ML VIAL IV PUSH ONE (18:15)
[2017-06-05 19:43] LABS: BILIRUBIN, URINE NEG (NEG); BLOOD, URINE NEG (NEG); GLUCOSE,URINE NEG (NEG); KETONE, URINE NEG (NEG); NITRITE,URINE NEG (NEG); PH, URINE 5.5 (5.0-8.5); URINE COLOR YELLOW (YELLW/STRAW); URINE LEUKOCYTE ESTERASE NEG (NEG)
[2017-06-05 20:00] LABS: RBC, URINE 0-3 /hpf (0-3); SQUAMOUS EPITHELIAL CELL URINE 0-5 /hpf (0-5); WBC, URINE 0-2 /hpf (0-5)
[2017-06-05] MEDS ORDERED: ENOXAPARIN SODIUM 40 MG/0.4 ML SYRINGE SQ SCH (20:00)
[2017-06-05] MEDS: SODIUM CHLOR 0.9% 1000 ML INJ 1,000 ML IV SCH (20:10)
[2017-06-05] MEDS: SODIUM CHLORIDE 0.9% FLUSH 10 ML FLUSH IV FLUSH SCH (20:52)
[2017-06-06] VITALS: BP 90/60; PULSE 83; RESP 20; TEMP 98.4; O2SAT 99
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
[2017-06-06] MEDS: SODIUM CHLOR 0.9% 1000 ML INJ 1,000 ML IV SCH ×2 (04:14→14:14)
[2017-06-06 07:31] LABS: AUTOMATED NEUTROPHIL # 6.8 TH/MM3 (1.8-7.7); BASOPHIL % 0.3 % (0.0-2.0); EOSINOPHIL # 0.2 TH/MM3 (0-0.4); EOSINOPHIL % 2.6 % (0.0-4.0); HEMATOCRIT 26.7 % (39.0-51.0); HEMOGLOBIN 8.7 GM/DL (13.0-17.0); LYMPH % 14.7 % (9.0-44.0); LYMPHOCYTE # 1.4 TH/MM3 (1.0-4.8); MEAN CELL VOLUME 95.9 FL (80.0-100.0); MEAN CORPUSCULAR HEMOGLOBIN 31.1 PG (27.0-34.0); MEAN CORPUSCULAR HGB CONC 32.5 % (32.0-36.0); MEAN PLATELET VOLUME 6.8 FL (7.0-11.0); MONO % 9.3 % (0.0-8.0); MONOCYTE # 0.9 TH/MM3 (0-0.9); NEUT % 73.1 % (16.0-70.0); PLATELET COUNT 644 TH/MM3 (150-450); RED BLOOD COUNT 2.78 MIL/MM3 (4.50-5.90); WHITE BLOOD COUNT 9.3 TH/MM3 (4.0-11.0)
[2017-06-06 07:46] LABS: CHLORIDE 113 MEQ/L (98-107); SODIUM (NA) 141 MEQ/L (136-145)
[2017-06-06 07:54] LABS: CALCIUM 8.1 MG/DL (8.5-10.1)
[2017-06-06 07:55] LABS: BICARBONATE 18.4 MEQ/L (21.0-32.0); BLOOD UREA NITROGEN 28 MG/DL (7-18); GLUCOSE,RANDOM 81 MG/DL (74-106)
[2017-06-06 07:58] LABS: ALT (GPT) 29 U/L (12-78); AST (GOT) 43 U/L (15-37); GLOMERULAR FILTRATION RATE 19 ML/MIN (>89)
[2017-06-06 07:59] LABS: TOTAL BILIRUBIN ADULT 0.2 MG/DL (0.2-1.0)
[2017-06-06 08:00] VITALS: BP 123/65; PULSE 87; RESP 14; TEMP 98.5; O2SAT 98
[2017-06-06 08:00] LABS: TOTAL PROTEIN 7.5 GM/DL (6.4-8.2)
[2017-06-06 08:01] LABS: ALKALINE PHOSPHATASE 77 U/L (45-117)
[2017-06-06] MEDS: SODIUM CHLORIDE 0.9% FLUSH 10 ML FLUSH IV FLUSH SCH ×2 (09:00→22:57)
--- NOTE | 2017-06-06 11:08 | HHI.HP ---
[facility] Gretchen Parr MD Admission Diagnosis Diverticulitis. Metastatic colon cancer with liver mass. Acute kid Diagnoses: (1) Metastatic colon cancer to liver Diagnosis: Principal (2) Acute kidney injury Diagnosis: Principal Travel History International Travel<30 Days: No Contact w/Intl Traveler <30 Da: No Traveled to Known Affected Are: No History of Present Illness Mr. Sinclair is a 56-year-old male. He came in secondary to weakness and shortness of breath. He says he's been feeling ill for a month. One month ago he was admitted secondary to diverticulitis in the setting of dehydration, acute injury of the kidney, and influenza. At that time liver abscess versus mass was seen. Patient's past history of colon cancer. Etiology was a mixed picture given the infection. The patient was discharged on Cipro, Flagyl, and tramadol to follow up as an outpatient. He has been taking his medications as directed and completed the course. Imaging at this admit shows no evidence of infection but continues to show mass and now, with clearer imaging in light of no infection, suggestions of metastasis are reported.. Patient is complaining of abdominal discomfort. Acute kidney injury is also present and IV hydration has been initiated. Evidence of GI bleed is present patient has a downward trend in hemoglobin from 11.2 to 8.7. Review of Systems Constitutional: DENIES: Fatigue, Fever, Chills, Night Sweats Eyes: DENIES: Diplopia, Eye inflammation, Eye pain, Vision loss Ears, nose, mouth, throat: DENIES: Hearing loss, Vertigo, Nasal discharge, Oral lesions Respiratory: DENIES: Cough, Wheezing, Shortness of breath Cardiovascular: DENIES: Chest pain, Palpitations, Syncope Gastrointestinal: COMPLAINS OF: Abdominal pain, Black stools, Bloody stools Musculoskeletal: DENIES: Joint pain, Muscle aches, Stiffness Integumentary: DENIES: Abnormal pigmentation, Nail changes, Pruritus, Rash Hematologic/lymphatic: DENIES: Bruising, Lymphadenopathy Immunologic/allergic: DENIES: Eczema, Urticaria Neurologic: DENIES: Abnormal gait, Headache, Paresthesias Psychiatric: DENIES: Anxiety, Confusion, Hallucinations Past Family Social History Past Medical History Colon Cancer Hx Hx of Chemotherapy CVA Hx Asthma Osteoarthritis GERD Gout HTN Sciatica Past Surgical History Colon Resection (Due to Cancer) Left Ankle Pin Left Cataract Tonsillectomy Reported Medications Reported Meds & Active Scripts Active Reported Prednisone 10 Mg Tab 10 Mg PO DAILY Naproxen 500 Mg Tab 500 Mg PO BID Lidoderm (Lidocaine) 5 % Adh..patch Flexeril (Cyclobenzaprine HCl) 10 Mg Tab 10 Mg PO TID Proair Hfa 8.5 GM Inh (Albuterol Sulfate) 90 Mcg/Act Aer 2 Puff INH BID PRN 108 mcg/actuation Allopurinol 300 Mg Tab 300 Mg PO DAILY Atorvastatin (Atorvastatin Calcium) 20 Mg Tab 20 Mg PO HS Atenolol 50 Mg Tab 50 Mg PO DAILY Lisinopril 40 Mg Tab 40 Mg PO DAILY Allergies: Coded Allergies: shellfish derived (Unverified Allergy, Severe, EDEMA, HIVES, 06/05/17) Active Ordered Medications Administered Medications Medications (Trade) Dose Ordered Sig/Wes Route PRN Reason Start Time Stop Time Status Last Admin Dose Admin Sodium Chloride 1,000 ml @ 100 mls/hr Q10H IV 06/05/17 18:14 06/06/17 04:14 Enoxaparin Sodium (Lovenox Inj) 40 mg Q24H SQ 06/05/17 20:00 06/05/17 20:10 Social History Alcohol Use: Yes (usually daily) Tobacco Use: No Substance Use: No Physical Exam Vital Signs Vital Signs Date Time Temp Pulse Resp B/P (MAP) Pulse Ox O2 Delivery O2 Flow Rate FiO2 06/06/17 08:00 98.5 87 14 123/65 (84) 98 06/06/17 00:00 98.4 83 20 90/60 (70) 99 06/05/17 21:30 97.4 85 20 121/82 (95) 100 06/05/17 21:18 99 18 132/62 (85) 99 06/05/17 19:05 102 20 111/89 (96) 98 Room Air 06/05/17 18:31 100 169/76 (107) 97 Room Air 06/05/17 17:00 95 18 117/95 (102) 100 Room Air 06/05/17 16:30 87 18 124/86 (99) 98 Room Air 06/05/17 15:19 96 Room Air 06/05/17 14:44 85 06/05/17 13:57 97.2 93 18 122/77 (92) 100 Physical Exam GENERAL: This is a well-nourished, well-developed patient, in no apparent distress. SKIN: No rashes, ecchymoses or lesions. Cool and dry. HEAD: Atraumatic. Normocephalic. No temporal or scalp tenderness. EYES: Pupils equal round and reactive. Extraocular motions intact. No scleral icterus. No injection or drainage. ENT: Nose without bleeding, purulent drainage or septal hematoma. Throat without erythema, tonsillar hypertrophy or exudate. Uvula midline. Airway patent. NECK: Trachea midline. No JVD or lymphadenopathy. Supple, nontender, no meningeal signs. CARDIOVASCULAR: Regular rate and rhythm without murmurs, gallops, or rubs. RESPIRATORY: Clear to auscultation. Breath sounds equal bilaterally. No wheezes , rales, or rhonchi. GASTROINTESTINAL: Abdomen soft, non-tender, nondistended. No hepato-splenomegaly , or palpable masses. No guarding. MUSCULOSKELETAL: Extremities without clubbing, cyanosis, or edema. No joint tenderness, effusion, or edema noted. No calf tenderness. Negative Homans sign bilaterally. NEUROLOGICAL: Awake and alert. Cranial nerves II through XII intact. Motor and sensory grossly within normal limits. Five out of 5 muscle strength in all muscle groups. Normal speech. Laboratory Laboratory Tests Test 06/05/17 15:05 06/05/17 15:13 06/05/17 19:32 06/06/17 06:25 White Blood Count 12.1 9.3 Red Blood Count 3.53 2.78 Hemoglobin 11.2 8.7 Hematocrit 33.5 26.7 Mean Corpuscular Volume 94.9 95.9 Mean Corpuscular Hemoglobin 31.7 31.1 Mean Corpuscular Hemoglobin Concent 33.4 32.5 Red Cell Distribution Width 16.2 15.0 Platelet Count 724 644 Mean Platelet Volume 7.1 6.8 Neutrophils (%) (Auto) 80.0 73.1 Lymphocytes (%) (Auto) 11.0 14.7 Monocytes (%) (Auto) 5.9 9.3 Eosinophils (%) (Auto) 1.7 2.6 Basophils (%) (Auto) 1.4 0.3 Neutrophils # (Auto) 9.7 6.8 Lymphocytes # (Auto) 1.3 1.4 Monocytes # (Auto) 0.7 0.9 Eosinophils # (Auto) 0.2 0.2 Basophils # (Auto) 0.2 0.0 CBC Comment AUTO DIFF DIFF FINAL Differential Total Cells Counted 100 Neutrophils % (Manual) 70 Band Neutrophils % 2 Lymphocytes % 21 Monocytes % 3 Eosinophils % 2 Neutrophils # (Manual) 9.0 Metamyelocytes 1 Myelocytes 1 Differential Comment FINAL DIFF MANUAL Platelet Estimate HIGH Platelet Morphology Comment CLUMPED Red Cell Morphology Comment NORMAL Prothrombin Time 11.0 Prothromb Time International Ratio 1.1 Activated Partial Thromboplast Time 28.2 Blood Urea Nitrogen 32 28 Creatinine 3.80 3.40 Random Glucose 118 81 Total Protein 9.4 7.5 Albumin 2.5 2.0 Calcium Level 8.9 8.1 Phosphorus Level 4.3 Magnesium Level 1.4 Alkaline Phosphatase 90 77 Aspartate Amino Transf (AST/SGOT) 49 43 Alanine Aminotransferase (ALT/SGPT) 31 29 Total Bilirubin 0.2 0.2 Sodium Level 134 141 Potassium Level 5.7 5.3 Chloride Level 105 113 Carbon Dioxide Level 18.8 18.4 Anion Gap 10 10 Estimat Glomerular Filtration Rate 16 19 B-Type Natriuretic Peptide 35 Lipase 443 411 Thyroid Stimulating Hormone 3rd Gen 2.760 Lactic Acid Level 2.0 Ammonia 29 Urine Color YELLOW Urine Turbidity CLEAR Urine pH 5.5 Urine Specific [place] 1.010 Urine Protein TRACE Urine Glucose (UA) NEG Urine Ketones NEG Urine Occult Blood NEG Urine Nitrite NEG Urine Bilirubin NEG Urine Urobilinogen 0.2 Urine Leukocyte Esterase NEG Urine RBC 0-3 Urine WBC 0-2 Urine Squamous Epithelial Cells 0-5 Microscopic Urinalysis Comment CULT NOT INDICATED Date/Time Source Procedure Growth Status 06/05/17 15:13 Blood Peripheral Aerobic Blood Culture Pending Received 06/05/17 15:13 Blood Peripheral Anaerobic Blood Culture Pending Received Result Diagram: 06/06/1725 06/06/1725 Imaging Last Impressions Chest X-Ray [id number] Signed Impressions: Service Date/Time: Monday, June 05, 2017 15:23 - CONCLUSION: 1. No acute cardiopulmonary disease. Gary Tinsley MD Abdomen/Pelvis CT [id number] Signed Impressions: Service Date/Time: Monday, June 05, 2017 15:40 - CONCLUSION: 1. 8.8 cm liver mass suspicious for metastatic disease or primary hepatic tumor. 2. Focal mural thickening distal sigmoid colon suspicious for malignancy. 3. Mural thickening in the mid left colon with surrounding inflammatory changes probably diverticulitis but cannot exclude mass. Overall mural thickening on the left side appears slightly improved from May 20. MD Pilo Hood VTE Risk Assessment Caprini VTE Risk Assessment: No/Low Risk (score <= 1) Caprini Risk Assessment Model Point Value = 1 Point Value = 2 Point Value = 3 Point Value = 5 Age 41-60 Minor surgery BMI > 25 kg/m2 Swollen legs Varicose veins or History of unexplained or recurrent spontaneous Oral contraceptives or hormone replacement Sepsis (< 1 month) Serious lung disease, including pneumonia (< 1 month) Abnormal pulmonary function Acute myocardial infarction Congestive heart failure (< 1 month) History of inflammatory bowel disease Medical patient at bed rest Age 61-74 Arthroscopic surgery Major open surgery (> 45 min) Laparoscopic surgery (> 45 min) Malignancy Confined to bed (> 72 hours) Immobilizing plaster cast Central venous access Age >= 75 History of VTE Family history of VTE Factor V Leiden Prothrombin 13354H Lupus anticoagulant Anticardiolipin antibodies Elevated serum homocysteine Heparin-induced thrombocytopenia Other congenital or acquired thrombophilia Stroke (< 1 month) Elective arthroplasty Hip, pelvis, or leg fracture Acute spinal cord injury (< 1 month) Prophylaxis Regimen Total Risk Factor Score Risk Level Prophylaxis Regimen 0-1 Low Early ambulation 2 Moderate Order ONE of the following: *Sequential Compression Device (SCD) *Heparin 5000 units SQ BID 3-4 Higher Order ONE of the following medications: *Heparin 5000 units SQ TID *Enoxaparin/Lovenox 40 mg SQ daily (WT < 150 kg, CrCl > 30 mL/min) *Enoxaparin/Lovenox 30 mg SQ daily (WT < 150 kg, CrCl > 10-29 mL/min) *Enoxaparin/Lovenox 30 mg SQ BID (WT < 150 kg, CrCl > 30 mL/min) AND/OR *Sequential Compression Device (SCD) 5 or more Highest Order ONE of the following medications: *Heparin 5000 units SQ TID (Preferred with Epidurals) *Enoxaparin/Lovenox 40 mg SQ daily (WT < 150 kg, CrCl > 30 mL/min) *Enoxaparin/Lovenox 30 mg SQ daily (WT < 150 kg, CrCl > 10-29 mL/min) *Enoxaparin/Lovenox 30 mg SQ BID (WT < 150 kg, CrCl > 30 mL/min) AND *Sequential Compression Device (SCD) Assessment and Plan Problem List: (1) Acute blood loss anemia ICD Code: D62 - Acute posthemorrhagic anemia (2) GI bleed ICD Code: K92.2 - Gastrointestinal hemorrhage, unspecified (3) Metastatic colon cancer to liver ICD Code: C18.9 - Malignant neoplasm of colon, unspecified; C78.7 - Secondary malignant neoplasm of liver and intrahepatic bile duct Status: Acute (4) Acute kidney injury ICD Code: N17.9 - Acute kidney failure, unspecified Status: Acute (5) Diverticulitis ICD Code: K57.92 - Diverticulitis of intestine, part unspecified, without perforation or abscess without bleeding (6) OMAR (acute kidney injury) ICD Code: N17.9 - Acute kidney injury Status: Acute Assessment and Plan 56-year-old male admitted secondary to abdominal pain with abdominal mass, pancreatitis, and GI bleed GI bleed Acute blood loss anemia Follow CBC GI consulted Mass could be source of bleed Transfuse as needed Pancreatitis Clear liquid diet Follow lipase May be reactive or related to mass Abdominal pain Abdominal mass Possible metastatic disease History of colon cancer Possible recurrence of cancer with metastasis Colonoscopy plan Biopsy planned Oncology has been consulted and is following Hypertension Continue baseline treatment Follow blood pressures Adjust treatments as needed CVA Hx Asthma Osteoarthritis GERD Gout Sciatica No exacerbations of these conditions Follow clinically DVT prophylaxis SCDs Physician Certification 2 Midnight Certification Type: Admission for Inpatient Services Order for Inpatient Services The services are ordered in accordance with Medicare regulations or non- Medicare payer requirements, as applicable. In the case of services not specified as inpatient-only, they are appropriately provided as inpatient services in accordance with the 2-midnight benchmark. Estimated LOS (days): 3 days is the estimated time the patient will need to remain in the hospital, assuming treatment plan goals are met and no additional complications. Post-Hospital Plan: Severiano Berman MD Jun 06, 2017 11:08
[2017-06-06] MEDS ORDERED: ACETAMINOPHEN/HYDROcodone 325 MG/5 MG TAB PO PRN (11:30)
[2017-06-06] MEDS: LORazepam 1 MG TAB PO PRN ×2 (11:53→17:34)
[2017-06-06] MEDS: DICYCLOMINE HCL 20 MG TAB PO SCH ×3 (11:53→22:57)
[2017-06-06 12:00] VITALS: BP 117/72; PULSE 92; RESP 16; TEMP 98.6; O2SAT 98
[2017-06-06 12:07] LABS: CARCINOEMBRYONIC ANTIGEN 1.4 NG/ML (0.2-5.0)
[2017-06-06] MEDS ORDERED: MORPHINE SULFATE 4 MG/ML INJ IV PUSH PRN (13:15)
--- NOTE | 2017-06-06 14:11 | RADRPT ---
EXAM DATE/TIME: 06/06/2017 13:20 [facility] COMPARISON: CT ABDOMEN & PELVIS W/O CONTRAST, June 05, 2017, 15:40. INDICATIONS : Increased BUN/Creatnine. MEDICAL HISTORY : Stroke. Gastroesophageal reflux disease. Carcinoma, colon. Tinnitus. Asthma. Sciatica. Arthritis. GOU T. SURGICAL HISTORY : Tonsillectomy. Bilateral cataract surgery. Colon resection. Left foot screws and pins. ENCOUNTER: Initial ACUITY: 1 day PAIN SCORE: 0/10 LOCATION: Bilateral flank MEASUREMENTS: RIGHT KIDNEY: 10.9 x 6.7 x 6.4 cm LEFT KIDNEY: 11.1 x 5.1 x 6.1 cm FINDINGS: RIGHT KIDNEY: Renal cortex appears mildly thinned and increased in echogenicity with a single well-circumscribed be nign 2 cm cyst. No evidence of hydronephrosis. LEFT KIDNEY: Renal cortex is mildly thinned with increased echogenicity. No evidence of concerning mass or hydrone phrosis. BLADDER: Within normal limits given the degree of distension. CONCLUSION: The renal cortex is mildly thinned bilaterally and slightly increased in echogenicity. There is a sin gle benign cysts identified in the right kidney. No evidence of hydronephrosis. Rhonda Cr MD on June 06, 2017 at 14:06 Board Certified Radiologist. This report was verified electronically.
[2017-06-06 14:12] LABS: HEMATOCRIT 24.6 % (39.0-51.0); HEMOGLOBIN 7.7 GM/DL (13.0-17.0)
--- NOTE | 2017-06-06 15:13 | MB ---
cc: Sridevi Obrien MD DATE OF CONSULT: 06/06/2017 REASON FOR CONSULTATION: Anemia and possible sigmoid mass. HISTORY OF PRESENT ILLNESS: This is a 56-year-old male patient with a known history of colon CA 20 years ago that was treated by chemotherapy and surgical resection of the right colon who underwent a surveillance colonoscopy after that. The last colonoscopy was done 6 years ago that reported as normal. The patient was told to follow up after 10 years. This time, the patient presented to the hospital after 1 month of not feeling well. He had an episode of diverticulitis that was treated by antibiotics and was sent home. He was discharged on Cipro, flagyl and tramadol and over the next 2 weeks, the patient continued to have diarrhea that was initially normal in color, brownish yellow and then subsequently started on oral iron supplement and subsequently his bowel movement changed to a dark color. The patient denies any fresh blood per rectum. Denies any nausea, vomiting or hematemesis. Denies any change in weight or appetite. Denies any change in bowel habit other than the most recent attack. REVIEW OF SYSTEMS: All 14 elements review of system reported were negative other than the ones mentioned in history of present illness. PAST MEDICAL HISTORY: Colon CA 20 years ago, history of chemotherapy, right hemicolectomy, history of CVA, bronchial asthma, osteoarthritis, reflux, gout, hypertension and sciatica. PAST SURGICAL HISTORY: Right hemicolectomy, left ankle surgery, tonsillectomy. MEDICATIONS: 1. Prednisone. 2. Naproxen. 3. Lidocaine. 4. Allopurinol. 5. Atorvastatin. 6. Atenolol. 7. Lisinopril. ALLERGIES: SHELLFISH. PSYCHOSOCIAL HISTORY: The patient is an alcohol user on a daily basis. No tobacco or drug abuse. PHYSICAL EXAMINATION: GENERAL: The patient was found to be comfortable and in good nutritional status. No dehydration or jaundice. VITAL SIGNS: Hemodynamically stable with blood pressure of 123/65, pulse of 98, respiratory rate of 14. HEAD AND NECK: Normocephalic, atraumatic. Pupils equal and round, reactive to light. Supple neck. No lymphadenopathy. No thyromegaly. CHEST: Clear to auscultation bilateral. No crackles or wheezes. HEART: Regular rate and rhythm. No murmurs. ABDOMEN: Slightly obese with central obesity and a scar seen in the right side of the abdomen. Minimal tenderness noted in the suprapubic area. No hepatosplenomegaly. No palpable masses. EXTREMITIES: Normal pulses. No edema. NEUROLOGIC: Cranial nerves 2-12 grossly intact. No focal motor or sensory deficit. SKIN: No rashes. LABORATORY DATA: Showed a hemoglobin of 11.2 on admission, went down to 8.7 with hematocrit of 33.5, down to 26.7; white count 9.3; platelet count of 644. His chemistry within normal limits, creatinine of 3.4, urea 28. IMAGING STUDIES: CT scan of the abdomen showed a 8.8 cm liver mass suspicious for metastatic disease or primary liver tumor. Also, focal thickening at the distal sigmoid colon suspicious for malignancy and moderate mural thickening in the mid left colon with surrounding inflammatory changes suggestive of diverticulitis, but overall, this thickening is better than the one he had a month ago. ASSESSMENT AND PLAN: This is a 56-year-old male patient with the following problems: 1. Anemia with history of dark tarry stool of 2 weeks' duration. 2. History of colon cancer, status post chemotherapy and surgical resection. Last colonoscopy was 6 years ago reported as normal. 3. CT scan suggestive of a sigmoid mass and possible liver lesion. 4. CT scan showing resolution of diverticulitis comparing to the previous CT. 5. Chronic use of nonsteroidal anti-inflammatory drugs. RECOMMENDATIONS: Agree with the management plan by the primary team. We will need serial hemoglobin, hematocrit and give blood transfusion as needed. Need aggressive hydration to correct his chronic kidney injury and we will start him on bowel preparation today for possible EGD and a colonoscopy Thursday. The procedure was explained to the patient including risks, benefits and possible complications. He agreed to proceed with the procedure on Thursday. Further recommendations to follow. Thank you for the consult. MD KANDICE Stanley/KIESHA , 02:32 PM , 03:12 PM
[2017-06-06 15:56] LABS: CREATININE, RANDOM URINE 39.3 MG/DL
--- NOTE | 2017-06-06 16:42 | EKG ---
Date Performed: 06/05/2017 Time Performed: 15:20:07 PTAGE: 56 years EKG: Sinus rhythm WITH SINUS ARRHYTHMIA NORMAL ECG Since PREVIOUS TRACING , no significant change noted PREVIOUS TRACIN09/17/2015 08.39 DOCTOR: Yaw Perla Interpretating Date/Time 06/06/2017 16:41:11
[2017-06-06] MEDS: MORPHINE SULFATE 4 MG/ML INJ IV PUSH PRN ×2 (18:08→23:51)
[2017-06-06 18:40] VITALS: BP 111/66; PULSE 87; RESP 14; TEMP 97.8; O2SAT 100
--- NOTE | 2017-06-06 20:27 | MB ---
cc: Severiano Pizano MD DATE OF CONSULT: REASON FOR CONSULTATION: Acute renal failure management. HISTORY OF PRESENT ILLNESS: This is a 56-year-old male who was admitted yesterday with complaints of weakness and shortness of breath with ongoing diarrhea. The patient has a previous history of colon cancer, which was apparently treated in the past and apparently had a negative colonoscopy several years ago. The patient on this admission presented with anemia and was found to have a liver mass suspicious for colon mets with a possible new finding of colon mass as well. Since his admission here, the patient has been given IV fluids. He has been seen with oncology and the plan is for a possible liver biopsy. In addition, the patient has been seen with gastroenterology and the plan is for possible colonoscopy on Thursday. The patient has been receiving IV fluids and reports that symptoms of weakness have improved. He still has some ongoing diarrhea at this point. Regarding his renal function, the patient had a creatinine that ranged from 2.2 to 1.7 in 04/2017. At that time, he was attributed to having acute renal failure secondary to volume depletion and was treated with a brief round of IV fluids overnight. 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 Upon presentation here, the patient had a creatinine of 3.8 yesterday which slightly improved to a level of 3.4 today. The patient had a renal ultrasound which showed slightly thin renal cortex and no signs of any hydronephrosis otherwise. Of note, the patient also has a history of NSAID use and was taking NSAIDs at home prior to this admission. At this time, the patient is resting in bed comfortably and is receiving IV fluids. Nephrology was consulted for further evaluation. REVIEW OF SYSTEMS: No fevers, no chills. The patient does report having nausea with decreased p.o. intake, as well as diarrhea and vomiting earlier. No chest pains, no shortness of breath, no dizziness, no loss of consciousness. No dysuria otherwise. The patient reports having some generalized weakness. No chest pains otherwise. Review of systems is otherwise negative. PAST MEDICAL HISTORY: Includes colon cancer, history of chemotherapy, history of CVA in the past with asthma, osteoarthritis, GERD, gout, hypertension and sciatica. PAST SURGICAL HISTORY: Includes colon resection, left ankle pin, left cataract and tonsillectomy. MEDICATIONS AT HOME: Include prednisone, Naproxen, Lidoderm, Flexeril, allopurinol, atorvastatin, atenolol, lisinopril. ALLERGIES: INCLUDE SHELLFISH ALLERGY. SOCIAL HISTORY: The patient with history of daily alcohol use. No tobacco or drug use. PHYSICAL EXAMINATION: VITAL SIGNS: At the time of evaluation, temperature 97.8, pulse 87, respiratory rate 14, blood pressure 114/66, pulse oximetry 100% on room air. GENERAL: Awake, alert, oriented, in no apparent distress. HEENT: Neck soft, supple. CARDIAC: Regular rate and rhythm. PULMONARY: Lungs clear to auscultation bilaterally. ABDOMEN: Soft, nontender, nondistended. EXTREMITIES: No edema. LABORATORY DATA: Urinalysis with trace protein, otherwise negative. Sodium 141, potassium 5.3, chloride 113, bicarbonate 18.4, BUN 28, creatinine 3.4 with glucose 81, calcium 8.1, AST 43, ALT 29, alkaline phosphatase 77, albumin 2.0, lipase 411. White count 12.1, hemoglobin 11.2, hematocrit 33.5. This hemoglobin and hematocrit on repeat was 7.7 and 24.6 later today, platelet count of 724. ASSESSMENT AND PLAN: 1. Acute kidney injury. The patient has an unknown baseline; however, did have a recent creatinine of 1.7 in April. That creatinine was as high as 2.2 and was attributed to acute renal failure with intravenous fluids for management. At this point, the patient presented with a creatinine of 3.8, which improved slightly to a level of 3.4. I suspect the patient has acute kidney injury secondary to diarrhea as well as volume depletion with poor p.o. intake. At this time, continue with intravenous fluids. Will change intravenous fluids from normal saline to one half normal saline with 75 mEq of sodium bicarbonate to help treat some acidosis. He likely has some acidosis secondary to gastrointestinal losses from diarrhea. Of note, the patient has been on non-steroidal anti-inflammatory drugs at home and do not give any further non-steroidal anti-inflammatory drugs or nephrotoxins while here. Renal ultrasound showed a slightly thin cortex suggesting some mild underlying chronic kidney disease. 2. Colon cancer. The patient has a history of colon cancer, which was apparently treated in the past. Patient has apparent liver metastasis with a possible colon mass as well. The patient is being seen with oncology. Continue followup for workup and diagnosis. 3. Gastrointestinal bleed. The patient was seen by gastroenterology. He had an initial hemoglobin of 11. He was transfused. His repeat hemoglobin is at 7. Continue transfusions as needed. Plans is for possible colonoscopy on Thursday. Continue to monitor and follow up with gastroenterology. 4. Hypertension. Blood pressure is stable at this point. Continue to monitor. Of note, the patient had been on LIBORIO inhibitor at home. Hold LIBORIO inhibitor at this point, given acute renal failure. Severiaon Pizano MD DVP/rt , 07:33 PM , 08:26 PM MTDD
[2017-06-06 20:59] VITALS: BP 107/62; PULSE 96; RESP 18; TEMP 98.6; O2SAT 99
[2017-06-06] MEDS: SODIUM BICARBONATE 8.4% INJ 75 MEQ in SODIUM CHLOR 0.45% 1000 ML INJ 1,000 ML IV SCH (22:57)
[2017-06-07 00:07] VITALS: BP 102/57; PULSE 89; RESP 16; TEMP 99; O2SAT 97
[2017-06-07] MEDS: MORPHINE SULFATE 4 MG/ML INJ IV PUSH PRN ×4 (06:30→21:26)
[2017-06-07 06:56] LABS: AUTOMATED NEUTROPHIL # 6.6 TH/MM3 (1.8-7.7); BASOPHIL % 0.2 % (0.0-2.0); EOSINOPHIL # 0.2 TH/MM3 (0-0.4); EOSINOPHIL % 2.5 % (0.0-4.0); HEMATOCRIT 25.4 % (39.0-51.0); HEMOGLOBIN 8.1 GM/DL (13.0-17.0); LYMPH % 15.7 % (9.0-44.0); LYMPHOCYTE # 1.5 TH/MM3 (1.0-4.8); MEAN CELL VOLUME 95.6 FL (80.0-100.0); MEAN CORPUSCULAR HEMOGLOBIN 30.4 PG (27.0-34.0); MEAN CORPUSCULAR HGB CONC 31.8 % (32.0-36.0); MEAN PLATELET VOLUME 6.5 FL (7.0-11.0); MONO % 9.4 % (0.0-8.0); MONOCYTE # 0.9 TH/MM3 (0-0.9); NEUT % 72.2 % (16.0-70.0); PLATELET COUNT 597 TH/MM3 (150-450); RED BLOOD COUNT 2.65 MIL/MM3 (4.50-5.90); RED CELL DISTRIBUTION WIDTH 15.1 % (11.6-17.2); WHITE BLOOD COUNT 9.2 TH/MM3 (4.0-11.0)
[2017-06-07 07:14] LABS: CHLORIDE 113 MEQ/L (98-107); SODIUM (NA) 142 MEQ/L (136-145)
[2017-06-07 07:20] LABS: ALBUMIN 1.8 GM/DL (3.4-5.0); BICARBONATE 20.2 MEQ/L (21.0-32.0); BLOOD UREA NITROGEN 22 MG/DL (7-18); CALCIUM 7.9 MG/DL (8.5-10.1); GLUCOSE,RANDOM 71 MG/DL (74-106)
[2017-06-07 07:23] LABS: ALT (GPT) 23 U/L (12-78); AST (GOT) 20 U/L (15-37); GLOMERULAR FILTRATION RATE 22 ML/MIN (>89)
[2017-06-07 07:24] LABS: TOTAL BILIRUBIN ADULT 0.2 MG/DL (0.2-1.0); TOTAL PROTEIN 6.7 GM/DL (6.4-8.2)
[2017-06-07 07:25] LABS: ALKALINE PHOSPHATASE 67 U/L (45-117)
[2017-06-07 08:00] VITALS: BP 96/56; PULSE 89; RESP 18; TEMP 99.3; O2SAT 98
[2017-06-07] MEDS: TAMSULOSIN HCL 0.4 MG CAP PO SCH (10:00)
[2017-06-07] MEDS: DICYCLOMINE HCL 20 MG TAB PO SCH ×4 (10:18→21:24)
[2017-06-07] MEDS: LORazepam 1 MG TAB PO PRN ×2 (10:18→18:32)
[2017-06-07] MEDS: SODIUM CHLORIDE 0.9% FLUSH 10 ML FLUSH IV FLUSH SCH ×2 (10:19→21:24)
[2017-06-07] MEDS: SODIUM BICARBONATE 8.4% INJ 75 MEQ in SODIUM CHLOR 0.45% 1000 ML INJ 1,000 ML IV SCH ×2 (10:20→16:39)
[2017-06-07 12:00] VITALS: BP 110/58; PULSE 88; RESP 18; TEMP 98.8; O2SAT 95
[2017-06-07] MEDS ORDERED: BISACODYL EC 5 MG TABEC PO ONE (12:00)
--- NOTE | 2017-06-07 13:56 | HHI.PR ---
Subjective Remarks Overall hemoglobin has had a downward trend. Plan for colonoscopy with possible biopsy tomorrow. Patient does not complain of pain and actually has return of his appetite. Objective Vital Signs Date Time Temp Pulse Resp B/P (MAP) Pulse Ox O2 Delivery O2 Flow Rate FiO2 06/07/17 12:00 98.8 88 18 110/58 (75) 95 06/07/17 10:29 18 06/07/17 08:00 99.3 89 18 96/56 (69) 98 06/07/17 03:13 06/07/17 00:07 99.0 89 16 102/57 (72) 97 06/06/17 20:59 98.6 96 18 107/62 (77) 99 06/06/17 18:40 97.8 87 14 111/66 (81) 100 I/O 06/06/17 06/06/17 06/06/17 06/07/17 06/07/17 06/07/17 07:00 15:00 23:00 07:00 15:00 23:00 Intake Total 240 ml 500 ml 639 ml Output Total 550 ml 525 ml 1500 ml Balance -310 ml -25 ml -861 ml Intake Oral 240 ml IV Total 500 ml 639 ml Output Urine Total 550 ml 525 ml 1500 ml Bladder Scan Volume Amount 132 ml # Voids 5 # Bowel Movements 0 5 0 Result Diagram: 06/07/17 0615 06/07/17 0615 Objective Remarks GENERAL: NAD, A&Ox3 HEAD: Normocephalic. NECK: Supple, trachea midline. No lymphadenopathy. EYES: No scleral icterus. No injection or drainage. CARDIOVASCULAR: Regular rate and rhythm without murmurs, gallops, or rubs. RESPIRATORY: Breath sounds equal bilaterally. No accessory muscle use. GASTROINTESTINAL: Abdomen soft, non-tender, nondistended. MUSCULOSKELETAL: No cyanosis, or edema. SKIN: Warm and dry. NEURO: No focal neurological deficitis. A/P Problem List: (1) OMAR (acute kidney injury) ICD Code: N17.9 - Acute kidney injury Status: Acute (2) GI bleed ICD Code: K92.2 - Gastrointestinal hemorrhage, unspecified (3) Acute blood loss anemia ICD Code: D62 - Acute posthemorrhagic anemia (4) Metastatic colon cancer to liver ICD Code: C18.9 - Malignant neoplasm of colon, unspecified; C78.7 - Secondary malignant neoplasm of liver and intrahepatic bile duct Status: Acute (5) Acute kidney injury ICD Code: N17.9 - Acute kidney failure, unspecified Status: Acute Assessment and Plan 56-year-old male admitted secondary to abdominal pain with abdominal mass, pancreatitis, and GI bleed. Labs reviewed. Downward trend in hemoglobin. Continue to monitor labs. Labs ordered for further monitoring. Continue to follow CBC. GI bleed Acute blood loss anemia Slight downward trend in hemoglobin Transfuse as needed Follow CBC GI consulted Mass could be source of bleed Clear liquid diet Pancreatitis Clear liquid diet Follow lipase May be reactive or related to mass Abdominal pain Abdominal mass Possible metastatic disease History of colon cancer Possible recurrence of cancer with metastasis Colonoscopy planned Biopsy planned Oncology has been consulted and is following Hypertension Continue baseline treatment Follow blood pressures Adjust treatments as needed CVA Hx Asthma Osteoarthritis GERD Gout Sciatica No exacerbations of these conditions Follow clinically DVT prophylaxis Severiano Allen MD Jun 07, 2017 13:56
[2017-06-07 16:00] VITALS: BP 125/63; PULSE 92; RESP 18; TEMP 97.5; O2SAT 100
[2017-06-07] MEDS ORDERED: PEG (High)/E-LYTE SOLN 4000 ML BTL PO ONE (16:00)
--- NOTE | 2017-06-07 18:31 | HHI.NPPN ---
Subjective Additional Remarks No acute complaints Objective Data Data 06/07/17 06/08/17 19:00 07:00 Bladder Scan Volume Amount 132 ml Vital Signs Date Time Temp Pulse Resp B/P (MAP) Pulse Ox O2 Delivery O2 Flow Rate FiO2 06/07/17 14:47 18 06/07/17 12:00 98.8 88 18 110/58 (75) 95 06/07/17 10:29 18 06/07/17 08:00 99.3 89 18 96/56 (69) 98 06/07/17 03:13 06/07/17 00:07 99.0 89 16 102/57 (72) 97 06/06/17 20:59 98.6 96 18 107/62 (77) 99 06/06/17 18:40 97.8 87 14 111/66 (81) 100 -: 06/07/17 0615 06/07/17 0615 Physical Exam General Appearance: Well Developed, Well Nourished, No Acute Distress Throat Throat Exam: Oral Mucosa [place] & Moist Neck Neck Exam: Neck Supple Pulmonary Resp Exam: Clear Bilaterally Cardiology CV Exam: Regular, Normal Sinus Rhythm Gastrointestinal/Abdomen GI Exam: Soft, Non-Tender, Bowel Sounds Present Integumentary Skin Exam: Warm, Dry, Intact Extremeties Extremities Exam: No Edema Neurologic Neuro Exam: Alert, Awake, Oriented, Speech Clear Assessment/Plan Problem List: (1) OMAR (acute kidney injury) ICD Codes: N17.9 - Acute kidney injury Status: Acute Plan: 1. Acute kidney injury. The patient has an unknown baseline; however, did have a recent creatinine of 1.7 in April. OMAR due to diarrhea as well as volume depletion with poor p.o. intake. Creatinine 3.8 -> 2.9 on IVFs Continue 03/24 NS + 75 mEq NaHCO3 at 100cc/hour. Acidosis due to GI losses from diaharrea/ renal failure - improving. Of note, the patient has been on non-steroidal anti-inflammatory drugs at home and do not give any further non-steroidal anti-inflammatory drugs or nephrotoxins while here. Renal ultrasound showed a slightly thin cortex suggesting some mild underlying chronic kidney disease. Some urinary retention on bladder scan (150-200cc post void residual). Patient refuses contreras, Flomax started. (2) Metastatic colon cancer to liver ICD Codes: C18.9 - Malignant neoplasm of colon, unspecified; C78.7 - Secondary malignant neoplasm of liver and intrahepatic bile duct Status: Acute Plan: 2. Colon cancer. The patient has a history of colon cancer, which was apparently treated in the past. Patient has apparent liver metastasis with a possible colon mass as well. The patient is being seen with oncology. Continue followup for workup and diagnosis. (3) GI bleed ICD Codes: K92.2 - Gastrointestinal hemorrhage, unspecified Plan: Continue transfusions as needed. Plans is for possible colonoscopy on Thursday. Continue to monitor and follow up with gastroenterology. (4) HTN (hypertension) ICD Codes: I10 - HTN (hypertension) Status: Chronic Plan: Blood pressure is stable at this point. Continue to monitor. Of note, the patient had been on LIBORIO inhibitor at home. Hold LIBORIO inhibitor at this point, given acute renal failure. Severiano Pizano MD Jun 07, 2017 18:31
[2017-06-07] MEDS ORDERED: SODIUM CHLOR 0.9% 1000 ML INJ 1,000 ML IV SCH (22:00)
[2017-06-07 22:10] VITALS: BP 127/76; PULSE 94; RESP 18; TEMP 98.6; O2SAT 100
[2017-06-08 01:07] VITALS: BP 110/78; PULSE 99; RESP 16; TEMP 98; O2SAT 99
[2017-06-08] MEDS: MORPHINE SULFATE 4 MG/ML INJ IV PUSH PRN ×2 (01:49→09:47)
[2017-06-08] MEDS: SODIUM BICARBONATE 8.4% INJ 75 MEQ in SODIUM CHLOR 0.45% 1000 ML INJ 1,000 ML IV SCH ×2 (03:35→20:05)
[2017-06-08] MEDS: LORazepam 1 MG TAB PO PRN ×2 (03:37→11:50)
[2017-06-08 07:13] LABS: AUTOMATED NEUTROPHIL # 4.9 TH/MM3 (1.8-7.7); BASOPHIL % 0.2 % (0.0-2.0); EOSINOPHIL # 0.2 TH/MM3 (0-0.4); EOSINOPHIL % 2.7 % (0.0-4.0); HEMOGLOBIN 7.4 GM/DL (13.0-17.0); LYMPH % 16.1 % (9.0-44.0); LYMPHOCYTE # 1.1 TH/MM3 (1.0-4.8); MEAN CORPUSCULAR HEMOGLOBIN 30.8 PG (27.0-34.0); MEAN CORPUSCULAR HGB CONC 32.4 % (32.0-36.0); MEAN PLATELET VOLUME 6.8 FL (7.0-11.0); MONO % 10.9 % (0.0-8.0); MONOCYTE # 0.8 TH/MM3 (0-0.9); NEUT % 70.1 % (16.0-70.0); PLATELET COUNT 510 TH/MM3 (150-450); RED BLOOD COUNT 2.42 MIL/MM3 (4.50-5.90); RED CELL DISTRIBUTION WIDTH 15.3 % (11.6-17.2); WHITE BLOOD COUNT 7.1 TH/MM3 (4.0-11.0)
[2017-06-08 07:30] LABS: ALBUMIN 1.7 GM/DL (3.4-5.0); BICARBONATE 21.7 MEQ/L (21.0-32.0); CALCIUM 7.4 MG/DL (8.5-10.1); CALCIUM-PROTEIN CORRECTED 7.8 MG/DL (8.5-10.1); CREATININE 2.5 MG/DL (0.60-1.30); TOTAL BILIRUBIN ADULT 0.3 MG/DL (0.2-1.0); TOTAL PROTEIN 6.3 GM/DL (6.4-8.2)
[2017-06-08] MEDS: SODIUM CHLORIDE 0.9% FLUSH 10 ML FLUSH IV FLUSH SCH ×2 (09:00→20:21)
[2017-06-08 09:03] VITALS: BP 104/55; PULSE 82; RESP 16; TEMP 98.3; O2SAT 97
[2017-06-08] MEDS: TAMSULOSIN HCL 0.4 MG CAP PO SCH (09:36)
[2017-06-08] MEDS: DICYCLOMINE HCL 20 MG TAB PO SCH ×4 (09:36→20:05)
[2017-06-08] MEDS ORDERED: ACETAMINOPHEN/HYDROcodone 325 MG/7.5 MG TAB PO PRN (10:30)
[2017-06-08 11:49] VITALS: BP 126/85; PULSE 100; RESP 16; TEMP 97.4; O2SAT 98
--- NOTE | 2017-06-08 12:49 | HHI.PR ---
Subjective Remarks Patient seen and evaluated today in follow-up for diverticulitis with GI bleed and for chronic pain. Patient with new liver mass worrisome for malignancy. Workup in progress Patient reports pain which is usually controlled with his lidocaine patch and oxycodone 10 mg at home. Objective Vitals Vital Signs Date Time Temp Pulse Resp B/P (MAP) Pulse Ox O2 Delivery O2 Flow Rate FiO2 06/08/17 11:49 97.4 100 16 126/85 (99) 98 06/08/17 09:03 98.3 82 16 104/55 (71) 97 06/08/17 04:18 06/08/17 01:07 98.0 99 16 110/78 (89) 99 06/07/17 22:10 98.6 94 18 127/76 (93) 100 06/07/17 18:45 18 06/07/17 16:00 97.5 92 18 125/63 (83) 100 06/07/17 14:47 18 I/O 06/07/17 06/07/17 06/07/17 06/08/17 06/08/17 06/08/17 07:00 15:00 23:00 07:00 15:00 23:00 Intake Total 639 ml 302 ml 879 ml Output Total 1500 ml Balance -861 ml 302 ml 879 ml IV Total 639 ml 302 ml 879 ml Output Urine Total 1500 ml Bladder Scan Volume Amount 132 ml 132 ml # Voids 5 5 # Bowel Movements 0 2 Result Diagram: 06/08/17 0547 06/08/17 0547 Imaging Last Impressions Renal Ultrasound 06/06/17 0000 Signed Impressions: Service Date/Time: Tuesday, June 06, 2017 13:20 - CONCLUSION: The renal cortex is mildly thinned bilaterally and slightly increased in echogenicity. There is a single benign cysts identified in the right kidney. No evidence of hydronephrosis. Rhonda Cr MD Chest X-Ray 06/05/17 5252 Signed Impressions: Service Date/Time: Monday, June 05, 2017 15:23 - CONCLUSION: 1. No acute cardiopulmonary disease. Gary Tinsley MD Abdomen/Pelvis CT 06/05/17 3187 Signed Impressions: Service Date/Time: Monday, June 05, 2017 15:40 - CONCLUSION: 1. 8.8 cm liver mass suspicious for metastatic disease or primary hepatic tumor. 2. Focal mural thickening distal sigmoid colon suspicious for malignancy. 3. Mural thickening in the mid left colon with surrounding inflammatory changes probably diverticulitis but cannot exclude mass. Overall mural thickening on the left side appears slightly improved from May 20. Luther Slaughter MD Objective Remarks GENERAL: This is a well-nourished, well-developed patient, complaining of back pain CARDIOVASCULAR: Regular rate and rhythm without murmurs, gallops, or rubs. RESPIRATORY: Clear to auscultation. Breath sounds equal bilaterally. No wheezes , rales, or rhonchi. GASTROINTESTINAL: Abdomen soft, non-tender, nondistended. Normal active bowel sounds MUSCULOSKELETAL: Extremities without clubbing, cyanosis, or edema. NEURO: Alert & Oriented x4 to person, place, time, situation. Moves all ext x4 A/P Problem List: (1) Acute blood loss anemia ICD Code: D62 - Acute posthemorrhagic anemia Plan: Patient still with anemia and hemoglobin is 7.4 We'll transfuse as needed Bleeding appears to be secondary to GI losses (2) GI bleed ICD Code: K92.2 - Gastrointestinal hemorrhage, unspecified Plan: Secondary to diverticular disease but also worrisome for masses which may be recurrent CA Hx of colon CA 20 years ago that was treated by chemotherapy and surgical resection Will follow-up workup in progress with endoscopy GI following (3) Acute kidney injury ICD Code: N17.9 - Acute kidney failure, unspecified Status: Acute Plan: Greatly improved, likely prerenal (4) Diverticulitis ICD Code: K57.92 - Diverticulitis of intestine, part unspecified, without perforation or abscess without bleeding Plan: resolved compared to previous CT (5) Chronic pain ICD Code: G89.29 - Other chronic pain Plan: We'll resume patient's home lidocaine patch and oxycodone Pain mgt per dr roblero as an outpatient Carina Teixeira MD Jun 08, 2017 12:49
[2017-06-08] MEDS: LIDOCAINE HCL 5% PATCH T-DERMAL SCH (13:40)
[2017-06-08] MEDS: ACETAMINOPHEN/HYDROcodone 325 MG/10 MG TAB PO PRN ×2 (13:46→20:06)
[2017-06-08 15:00] LABS: % SATURATION IRON PROFILE 13.3 % (20-50); IRON (FE) 21 MCG/DL (65-175); TOTAL IRON BINDING CAPACITY 158 MCG/DL (250-450)
--- NOTE | 2017-06-08 15:20 | HHI.NPPN ---
Subjective General Problems: Anemia, Hypertension Renal Failure: Chronic, Acute History of Present Illness 56-year-old male who was admitted yesterday with complaints of weakness and shortness of breath with ongoing diarrhea. The patient has a previous history of colon cancer, which was apparently treated in the past and apparently had a negative colonoscopy several years ago. The patient on this admission presented with anemia and was found to have a liver mass suspicious for colon mets with a possible new finding of colon mass as well. He has been seen with oncology and the plan is for a possible liver biopsy. In addition, the patient has been seen with gastroenterology patient had chronic kidney disease and creatinine that ranged from 2.2 to 1.7 in 04/2017. Additional Remarks Patient is alert, now NPO for EGD and colonoscopy, not in distress. Objective Data Data Vital Signs Date Time Temp Pulse Resp B/P (MAP) Pulse Ox O2 Delivery O2 Flow Rate FiO2 06/08/17 11:49 97.4 100 16 126/85 (99) 98 06/08/17 09:03 98.3 82 16 104/55 (71) 97 06/08/17 04:18 06/08/17 01:07 98.0 99 16 110/78 (89) 99 06/07/17 22:10 98.6 94 18 127/76 (93) 100 06/07/17 18:45 18 06/07/17 16:00 97.5 92 18 125/63 (83) 100 -: 06/08/17 0547 06/08/17 0547 Physical Exam General Appearance: Well Developed, Well Nourished, No Acute Distress Throat Throat Exam: Oral Mucosa [place] & Moist Neck Neck Exam: Neck Supple Pulmonary Resp Exam: Clear Bilaterally Cardiology CV Exam: Regular, Normal Sinus Rhythm Gastrointestinal/Abdomen GI Exam: Soft, Non-Tender, Bowel Sounds Present Integumentary Skin Exam: Warm, Dry, Intact Extremeties Extremities Exam: No Edema Neurologic Neuro Exam: Alert, Awake, Oriented, Speech Clear Assessment/Plan Problem List: (1) OMAR (acute kidney injury) ICD Codes: N17.9 - Acute kidney injury Status: Acute Plan: 1. Acute kidney injury. Patient has chronic kidney disease, now admitted with loose BM and anemia. Creatinine was higher than his baseline. Possibly has an element of pre renal. Continue IVF. Has been non oliguric, Creatinine is improving. For GI work up. (2) Metastatic colon cancer to liver ICD Codes: C18.9 - Malignant neoplasm of colon, unspecified; C78.7 - Secondary malignant neoplasm of liver and intrahepatic bile duct Status: Acute Plan: 2. Colon cancer. The patient has a history of colon cancer, which was apparently treated in the past. Patient has apparent liver metastasis with a possible colon mass as well. The patient is being seen with oncology. Continue followup for workup and diagnosis. (3) GI bleed ICD Codes: K92.2 - Gastrointestinal hemorrhage, unspecified Plan: Continue transfusions as needed. Plans is for possible colonoscopy on Thursday. Continue to monitor and follow up with gastroenterology. (4) HTN (hypertension) ICD Codes: I10 - HTN (hypertension) Status: Chronic Plan: Blood pressure is stable at this point. Continue to monitor. Of note, the patient had been on LIBORIO inhibitor at home. Hold LIBORIO inhibitor at this point, given acute renal failure. (5) CKD (chronic kidney disease), stage III ICD Codes: N18.3 - Chronic kidney disease, stage 3 (moderate) Status: Acute Yuly Cowart MD Jun 08, 2017 15:20
[2017-06-08 15:42] VITALS: BP 126/85; PULSE 100; RESP 16; TEMP 97.4; O2SAT 98
--- NOTE | 2017-06-08 19:49 | PD.ONC.PN ---
Subjective Subjective Remarks Pt seen and examined, vital signs, labs, medications, imaging studies including CT scan of the abdomen and pelvis performed during this hospitalization as well as CT scan of the abdomen and pelvis with IV contrast performed in late April 2017 were reviewed, preliminary colonoscopy and EGD reports also reviewed. Subjectively; the patient is in good spirits at this time, he tells me the GI doctor told him no tumors were identified within the colon on he did have a colonic polyp and diverticulosis/diverticulitis. From a physical standpoint the patient reports continued fatigue and generalized weakness. He reports continued abdominal pain in the suprapubic area. He denies right upper quadrant pain. He denies fevers or chills. Objective Data Date Time Temp Pulse Resp B/P (MAP) Pulse Ox O2 Delivery O2 Flow Rate FiO2 06/08/17 18:35 97.6 80 18 119/77 (91) 100 06/08/17 18:20 81 16 117/77 (90) 100 06/08/17 18:08 97.7 64 16 96/60 (72) 100 06/08/17 15:42 97.4 100 16 126/85 (99) 98 06/08/17 11:49 97.4 100 16 126/85 (99) 98 06/08/17 09:03 98.3 82 16 104/55 (71) 97 06/08/17 04:18 06/08/17 01:07 98.0 99 16 110/78 (89) 99 06/07/17 22:10 98.6 94 18 127/76 (93) 100 06/08/17 06/08/17 06/08/17 07:00 15:00 23:00 Intake Total 879 ml 300 ml Balance 879 ml 300 ml Result Diagram: 06/08/17 0547 06/08/17 0547 Laboratory Results Laboratory Tests Test 06/08/17 05:47 06/08/17 13:26 White Blood Count 7.1 TH/MM3 Red Blood Count 2.42 MIL/MM3 Hemoglobin 7.4 GM/DL Hematocrit 23.0 % Mean Corpuscular Volume 95.0 FL Mean Corpuscular Hemoglobin 30.8 PG Mean Corpuscular Hemoglobin Concent 32.4 % Red Cell Distribution Width 15.3 % Platelet Count 510 TH/MM3 Mean Platelet Volume 6.8 FL Neutrophils (%) (Auto) 70.1 % Lymphocytes (%) (Auto) 16.1 % Monocytes (%) (Auto) 10.9 % Eosinophils (%) (Auto) 2.7 % Basophils (%) (Auto) 0.2 % Neutrophils # (Auto) 4.9 TH/MM3 Lymphocytes # (Auto) 1.1 TH/MM3 Monocytes # (Auto) 0.8 TH/MM3 Eosinophils # (Auto) 0.2 TH/MM3 Basophils # (Auto) 0.0 TH/MM3 CBC Comment DIFF FINAL Differential Comment Blood Urea Nitrogen 19 MG/DL Creatinine 2.50 MG/DL Random Glucose 70 MG/DL Total Protein 6.3 GM/DL Albumin 1.7 GM/DL Calcium Level 7.4 MG/DL Alkaline Phosphatase 58 U/L Aspartate Amino Transf (AST/SGOT) 12 U/L Alanine Aminotransferase (ALT/SGPT) 16 U/L Total Bilirubin 0.3 MG/DL Sodium Level 142 MEQ/L Potassium Level 4.7 MEQ/L Chloride Level 110 MEQ/L Carbon Dioxide Level 21.7 MEQ/L Anion Gap 10 MEQ/L Estimat Glomerular Filtration Rate 27 ML/MIN Protein Corrected Calcium 7.8 MG/DL Iron Level 21 MCG/DL Total Iron Binding Capacity 158 MCG/DL Percent Iron Saturation 13.3 % Vitamin B12 Level 820 PG/ML Administered Medications Medications (Trade) Dose Ordered Sig/Wes Route PRN Reason Start Time Stop Time Status Last Admin Dose Admin Sodium Chloride (NS Flush) 2 ml BID IV FLUSH 06/05/17 21:00 06/07/17 10:19 Lorazepam (Ativan) 1 mg Q8H PRN PO ANXIETY 06/05/17 19:00 06/08/17 11:50 Dicyclomine HCl (Bentyl) 20 mg QID PO 06/06/17 13:00 06/08/17 19:07 Sodium Bicarbonate 75 meq/Sodium Chloride 1,075 ml @ 100 mls/hr [id number] IV 06/06/17 21:00 06/08/17 03:35 Tamsulosin HCl (Flomax) 0.4 mg DAILY PO 06/07/17 10:00 06/08/17 09:36 Acetaminophen/ Hydrocodone Bitart ([place] 10-325 Mg) 1 tab Q4H PRN PO pain 06/08/17 12:45 06/08/17 13:46 Lidocaine HCl (Lidoderm 5% Patch.12 Hr) 1 patch DAILY T-DERMAL 06/08/17 13:00 06/08/17 13:40 Objective Remarks GENERAL: Middle-aged male, he appears older than his stated age, he is obese, sitting up in bed he is not acutely distressed. His skin appears mottled SKIN: Cool and dry with mottling noted over the extremities. HEAD: Normocephalic. EYES: No scleral icterus. No injection or drainage. NECK: Supple, trachea midline. No JVD or lymphadenopathy. LYMPHATIC: No adenopathy. CARDIOVASCULAR: Regular rate and rhythm without murmurs. RESPIRATORY: Breath sounds equal bilaterally. No accessory muscle use. GASTROINTESTINAL: Obese belly, round, soft, tender over the suprapubic area as well as the left lower quadrant, well-healed right lower quadrant surgical incision noted. No hepatosplenomegaly was palpable I suspect his body habitus is a limiting factor. EXTREMITIES: Bilateral pretibial edema with mottling of the skin over his knees bilaterally. MUSCULOSKELETAL: Adequate muscle tone. NEUROLOGICAL: No obvious focal deficit. Awake, alert, and oriented x3. PSYCHIATRIC: Appropriate mood and affect; insight and judgment normal. Assessment/Plan Assessment Mr. Sinclair is a 56-year-old male who was diagnosed 30 some years ago with an adenocarcinoma of the colon; the patient at that time was living in [facility] and underwent surgical resection at the [facility]. He subsequently reports receiving a full year of adjuvant chemotherapy. He reports having been well ever since from an oncologic standpoint. About 4 weeks ago he developed influenza and became acutely ill. He reports never having really recovered from those symptoms. In late April he presented to this facility with the above-noted symptoms, he underwent imaging studies and was noted to have an abnormal enhancing lesion involving the lower portion of the right hepatic lobe, the enhancement characteristics were concerning for a multi lobulated/pocketed abscess involving the liver, he was also noted to have thickening of the colonic wall concerning for diverticulitis. The patient was treated with antibiotics and then discharged home after about 3 days in the hospital and remained on oral antibiotics. The abscess was not drained and per comments in the original CT scan dated 05/20/2017 the radiologist determined the lesion to be in such a location that placement of a percutaneous drainage tube would be difficult. Other differential diagnoses included possible malignancy. After 2 days outside of the hospital the patient felt persistently ill, he describes feeling as if he had no energy and had no appetite. He continued to lose weight and came back and [facility] for further workup and management. This time he was noted to have acute on chronic renal failure. Repeat imaging studies revealed persistence of the lesion within the liver and colonic wall thickening. Colonoscopy was performed and diverticulitis/diverticulosis was identified. He has not been on antibiotics since she's been in this hospital. The oncology service been asked to see him given his previous history of colon carcinoma and the possibility that the hepatic lesion may represent a late recurrence. Plan 1. Hepatic lesion with enhancement characteristics as noted on 05/20/2017 to be consistent with either a multilobulated/multi-pocketed abscess versus a metastatic lesion. It would be my assessment that this lesion needs to be either biopsied or drained. This man does not look well, he has mottling of the skin and is fatigued. He is not on antibiotics and though he is afebrile at this time and cultures are negative because the differential diagnosis includes an undrained internal visceral organ abscess I would feel more comfortable with him being on broad- spectrum antibiotic coverage. I therefore start him on Zosyn. I've dose adjusted the Zosyn for his renal insufficiency. I will also consult that the infectious diseases service to help guide management of the suspected hepatic abscess. I have officially consulted interventional radiology to make an assessment and determination as to whether the hepatic lesion can be either biopsied or drained. The oncology service of follow along with you. Tien Houston MD Jun 08, 2017 19:49
[2017-06-08 20:00] VITALS: BP 135/80; PULSE 95; RESP 22; TEMP 96.9; O2SAT 100
[2017-06-08] MEDS: PIPERACIL-TAZO 2.25 GM PREMIX 50 ML IV SCH (20:21)
[2017-06-08] MEDS ORDERED: PIPERACIL-TAZO 2.25 GM PREMIX 50 ML IV SCH (21:00)
[2017-06-09] VITALS (9 sets, daily range): BP systolic 103–133; BP diastolic 49–88; PULSE 80–117; RESP 16–22; TEMP 96.2–98.2; O2SAT 95–100
[2017-06-09] MEDS: PIPERACIL-TAZO 2.25 GM PREMIX 50 ML IV SCH ×4 (02:50→21:05)
[2017-06-09] MEDS: ACETAMINOPHEN/HYDROcodone 325 MG/10 MG TAB PO PRN ×5 (02:53→22:18)
[2017-06-09] MEDS: SODIUM CHLORIDE 0.9% FLUSH 10 ML FLUSH IV FLUSH SCH ×2 (09:00→21:02)
[2017-06-09] MEDS: TAMSULOSIN HCL 0.4 MG CAP PO SCH (09:34)
[2017-06-09] MEDS: SODIUM BICARBONATE 8.4% INJ 75 MEQ in SODIUM CHLOR 0.45% 1000 ML INJ 1,000 ML IV SCH ×3 (09:34→23:50)
[2017-06-09] MEDS: DICYCLOMINE HCL 20 MG TAB PO SCH ×4 (09:35→21:05)
[2017-06-09] MEDS: LIDOCAINE HCL 5% PATCH T-DERMAL SCH (09:36)
--- NOTE | 2017-06-09 11:17 | PD.ID.CON ---
History of Present Illness Service ID Consult Requested By Dr Teixeira Reason for Consult diverticulitis Primary Care Physician Gretchen Parr MD Diagnoses: History of Present Illness 56 yo male with remote colon cancer sp partial colectomy Pt developped malaise, R sided abdominal paina and fever, chills in April He was diagnosed with Fu A CT from 05/20 showed diverticulitis and multifocal liver abscess not amendabel for percutaneous drainage he was d/c'd with a course of abx which he completed w/o resolution of his symptoms He presented this time afebrile with mild leukocytosis and his CT showed 8.8 cm mass suspicious for neoplasm and cecal wall thickening, while distal colon thickening improved Pt denies diarrhea, c/o abdominal cramping Had colonoscpoy that was benighn (diverticlulitis, polip) S/p abscess drainage today, clx P On zosyn Feels better Pt presented with renal failure, creatinine is improving gradually Review of Systems Constitutional: COMPLAINS OF: Fever, Chills Gastrointestinal: COMPLAINS OF: Abdominal pain, Diarrhea, Nausea, Vomiting Musculoskeletal: COMPLAINS OF: Joint pain, Muscle aches Except as stated in HPI: all other systems reviewed are Neg Past Family Social History Allergies: Coded Allergies: shellfish derived (Unverified Allergy, Severe, EDEMA, HIVES, 06/05/17) Past Medical History Includes colon cancer, history of chemotherapy, history of CVA in the past with asthma, osteoarthritis, GERD, gout, hypertension and sciatica. Past Surgical History Includes colon resection, left ankle pin, left cataract and tonsillectomy. Active Ordered Medications Medications where reviewed in EMR Antibiotics Include: zosuyn Family History reviewed non contributory to current ID issue Social History remote history of daily alcohol use. No tobacco or drug use. Physical Exam Vital Signs Vital Signs Date Time Temp Pulse Resp B/P (MAP) Pulse Ox O2 Delivery O2 Flow Rate FiO2 06/09/17 08:00 97.7 83 18 105/75 (85) 96 06/09/17 04:05 18 06/09/17 00:00 96.2 85 22 133/88 (103) 98 06/08/17 20:00 96.9 95 22 135/80 (98) 100 06/08/17 18:35 97.6 80 18 119/77 (91) 100 3/19/18 18:20 81 16 117/77 (90) 100 06/08/17 18:08 97.7 64 16 96/60 (72) 100 06/08/17 15:42 97.4 100 16 126/85 (99) 98 06/08/17 11:49 97.4 100 16 126/85 (99) 98 Physical Exam CONSTITUTIONAL/GENERAL: This is an obese patient, in no apparent distress. TUBES/LINES/DRAINS: SKIN: No jaundice, rashes, or lesions. Skin temperature appropriate. Not diaphoretic. HEAD: Atraumatic. Normocephalic. EYES: Pupils equal and round and reactive. Extraocular motions intact. No scleral icterus. No injection or drainage. Fundi not examined. ENT: Hearing grossly normal. Nose without bleeding or purulent drainage. Throat without visible erythema, exudates, masses, or lesions. NECK: Trachea midline. Supple, nontender. CARDIOVASCULAR: Regular rate and rhythm without murmurs, gallops, or rubs. No JVD. Peripheral pulses symmetric. RESPIRATORY/CHEST: Symmetric, unlabored respirations. Clear to auscultation. Breath sounds equal bilaterally. No wheezes, rales, or rhonchi. GASTROINTESTINAL: Abdomen soft, non-tender, obese nondistended. No hepato- splenomegaly, or palpable masses. No guarding. Bowel sounds present. GENITOURINARY: Without palpable bladder distension. MUSCULOSKELETAL: Extremities without clubbing, cyanosis, or edema. No joint tenderness or effusion noted. No calf tenderness. No mottling or clubbing. LYMPHATICS: No palpable cervical or supraclavicular adenopathy. NEUROLOGICAL: Awake and alert. Motor and sensory grossly within normal limits. Follows commands. Clear speech . Moves all extremities. PSYCHIATRIC: No obvious anxiety/depression. no apparent hallucinations or other psychotic thought process. Laboratory Laboratory Tests Test 06/08/17 13:26 Iron Level 21 Total Iron Binding Capacity 158 Percent Iron Saturation 13.3 Vitamin B12 Level 820 Date/Time Source Procedure Growth Status 06/05/17 15:13 Blood Peripheral Aerobic Blood Culture - Preliminary NO GROWTH IN 4 DAYS Resulted 06/05/17 15:13 Blood Peripheral Anaerobic Blood Culture - Preliminary NO GROWTH IN 4 DAYS Resulted Result Diagram: 06/08/17 0547 06/08/17 0547 Imaging Last Impressions Renal Ultrasound 06/06/17 0000 Signed Impressions: Service Date/Time: Tuesday, June 06, 2017 13:20 - CONCLUSION: The renal cortex is mildly thinned bilaterally and slightly increased in echogenicity. There is a single benign cysts identified in the right kidney. No evidence of hydronephrosis. Rhonda Cr MD Chest X-Ray 06/05/17 3638 Signed Impressions: Service Date/Time: Monday, June 05, 2017 15:23 - CONCLUSION: 1. No acute cardiopulmonary disease. Gary Tinsley MD Abdomen/Pelvis CT 06/05/17 [id number] Signed Impressions: Service Date/Time: Monday, June 05, 2017 15:40 - CONCLUSION: 1. 8.8 cm liver mass suspicious for metastatic disease or primary hepatic tumor. 2. Focal mural thickening distal sigmoid colon suspicious for malignancy. 3. Mural thickening in the mid left colon with surrounding inflammatory changes probably diverticulitis but cannot exclude mass. Overall mural thickening on the left side appears slightly improved from May 20. Luther Slaughter MD Assessment and Plan Assessment and Plan Liver abscess Diverticulitis Remote colon ca cont zosyn will follow results of the culture Discussed Condition With Mariaelena Miranda MD Jun 09, 2017 11:17
--- NOTE | 2017-06-09 11:19 | HHI.PR ---
Addendum to Inpatient Note Additional Information Pt see, examined around [address] Teixeira agree with CT guided aspiration, then will adjust teo Mariaelena Walton MD Jun 09, 2017 11:19
[2017-06-09] MEDS: LORazepam 1 MG TAB PO PRN ×2 (11:55→21:12)
--- NOTE | 2017-06-09 12:12 | HHI.PR ---
Subjective Remarks Patient's pain is better controlled on home regimen patient seen and evaluated in follow-up for abnormal liver lesions abscess versus mass. Patient scheduled for interventional radiology for biopsy or drainage of said lesion. Case discussed with Dr. Ibrahim infectious disease earlier. Hematology following Objective Vitals Vital Signs Date Time Temp Pulse Resp B/P (MAP) Pulse Ox O2 Delivery O2 Flow Rate FiO2 06/09/17 08:00 97.7 83 18 105/75 (85) 96 06/09/17 04:05 18 06/09/17 00:00 96.2 85 22 133/88 (103) 98 06/08/17 20:00 96.9 95 22 135/80 (98) 100 06/08/17 18:35 97.6 80 18 119/77 (91) 100 06/08/17 18:20 81 16 117/77 (90) 100 06/08/17 18:08 97.7 64 16 96/60 (72) 100 06/08/17 15:42 97.4 100 16 126/85 (99) 98 I/O 06/08/17 06/08/17 06/08/17 06/09/17 06/09/17 06/09/17 07:00 15:00 23:00 07:00 15:00 23:00 Intake Total 879 ml 1900 ml Output Total 420 ml Balance 879 ml 1480 ml Intake Oral 550 ml IV Total 879 ml 1050 ml Other 300 ml Output Urine Total 420 ml # Voids 5 # Bowel Movements 2 2 Result Diagram: 06/08/17 0547 06/08/17 0547 Objective Remarks GENERAL: This is a well-nourished, well-developed patient, complaining of back pain CARDIOVASCULAR: Regular rate and rhythm without murmurs, gallops, or rubs. RESPIRATORY: Clear to auscultation. Breath sounds equal bilaterally. No wheezes , rales, or rhonchi. GASTROINTESTINAL: Abdomen soft, non-tender, nondistended. Normal active bowel sounds MUSCULOSKELETAL: Extremities without clubbing, cyanosis, or edema. NEURO: Alert & Oriented x4 to person, place, time, situation. Moves all ext x4 A/P Problem List: (1) Acute blood loss anemia ICD Code: D62 - Acute posthemorrhagic anemia Plan: Patient still with anemia and hemoglobin is 7.4 We'll transfuse as needed Bleeding appears to be secondary to GI losses, Iron deficiency and Chronic illness IV Ironx3 (2) GI bleed ICD Code: K92.2 - Gastrointestinal hemorrhage, unspecified Plan: Secondary to diverticular disease but also worrisome for masses which may be recurrent CA Hx of colon CA 20 years ago that was treated by chemotherapy and surgical resection Will follow-up workup in progress with endoscopy GI following (3) Acute kidney injury ICD Code: N17.9 - Acute kidney failure, unspecified Status: Acute Plan: Greatly improved, likely prerenal (4) Diverticulitis ICD Code: K57.92 - Diverticulitis of intestine, part unspecified, without perforation or abscess without bleeding Plan: resolved compared to previous CT (5) Chronic pain ICD Code: G89.29 - Other chronic pain Plan: We'll resume patient's home lidocaine patch and oxycodone Pain mgt per dr roblero as an outpatient Carina Teixeira MD Jun 09, 2017 12:12
--- NOTE | 2017-06-09 14:05 | HHI.NPPN ---
Subjective General Problems: Anemia, Hypertension Renal Failure: Chronic, Acute History of Present Illness 56-year-old male who was admitted yesterday with complaints of weakness and shortness of breath with ongoing diarrhea. The patient has a previous history of colon cancer, which was apparently treated in the past and apparently had a negative colonoscopy several years ago. The patient on this admission presented with anemia and was found to have a liver mass suspicious for colon mets with a possible new finding of colon mass as well. He has been seen with oncology and the plan is for a possible liver biopsy. In addition, the patient has been seen with gastroenterology patient had chronic kidney disease and creatinine that ranged from 2.2 to 1.7 in 04/2017. Additional Remarks Patient is alert, now NPO for liver abscess drain, no SOB. Objective Data Data Vital Signs Date Time Temp Pulse Resp B/P (MAP) Pulse Ox O2 Delivery O2 Flow Rate FiO2 06/09/17 12:00 98.2 80 18 110/70 (83) 96 06/09/17 08:00 97.7 83 18 105/75 (85) 96 06/09/17 04:05 18 06/09/17 00:00 96.2 85 22 133/88 (103) 98 06/08/17 20:00 96.9 95 22 135/80 (98) 100 06/08/17 18:35 97.6 80 18 119/77 (91) 100 06/08/17 18:20 81 16 117/77 (90) 100 06/08/17 18:08 97.7 64 16 96/60 (72) 100 06/08/17 15:42 97.4 100 16 126/85 (99) 98 -: 06/08/17 0547 06/08/17 0547 Physical Exam General Appearance: Well Developed, Well Nourished, No Acute Distress Throat Throat Exam: Oral Mucosa [place] & Moist Neck Neck Exam: Neck Supple Pulmonary Resp Exam: Clear Bilaterally Cardiology CV Exam: Regular, Normal Sinus Rhythm Gastrointestinal/Abdomen GI Exam: Soft, Non-Tender, Bowel Sounds Present Integumentary Skin Exam: Warm, Dry, Intact Extremeties Extremities Exam: No Edema Neurologic Neuro Exam: Alert, Awake, Oriented, Speech Clear Assessment/Plan Problem List: (1) OMAR (acute kidney injury) ICD Codes: N17.9 - Acute kidney injury Status: Acute Plan: Patient has chronic kidney disease, and has Acute kideny injury. Now admitted with loose BM and anemia. Creatinine was higher than his baseline. Possibly has an element of pre renal. Continue IVF. Has been non oliguric, Creatinine continue to improve. Continue IVF. For liver abscess drain today. (2) Metastatic colon cancer to liver ICD Codes: C18.9 - Malignant neoplasm of colon, unspecified; C78.7 - Secondary malignant neoplasm of liver and intrahepatic bile duct Status: Acute Plan: 2. Colon cancer. The patient has a history of colon cancer, which was apparently treated in the past. Patient has apparent liver metastasis with a possible colon mass as well. The patient is being seen with oncology. Continue followup for workup and diagnosis. (3) GI bleed ICD Codes: K92.2 - Gastrointestinal hemorrhage, unspecified Plan: Continue transfusions as needed. Plans is for possible colonoscopy on Thursday. Continue to monitor and follow up with gastroenterology. (4) HTN (hypertension) ICD Codes: I10 - HTN (hypertension) Status: Chronic Plan: Blood pressure is stable at this point. Continue to monitor. Of note, the patient had been on LIBORIO inhibitor at home. Hold LIBORIO inhibitor at this point, given acute renal failure. (5) CKD (chronic kidney disease), stage III ICD Codes: N18.3 - Chronic kidney disease, stage 3 (moderate) Status: Acute Yuly Cowart MD Jun 09, 2017 14:05
[2017-06-09] MEDS: IRON SUCROSE INJ 100 MG in SODIUM CHLORIDE 0.9% INJ 100 ML IV SCH (14:30)
[2017-06-09] MEDS ORDERED: MIDAZOLAM HCL 2 MG/2 ML VIAL IV ONE (16:00)
--- NOTE | 2017-06-09 16:07 | PD.RAD ---
Post CT Procedure Prog Note Pre Procedure Diagnosis: (1) Metastatic colon cancer to liver Post Procedure Diagnosis: (1) Liver abscess Procedure Date: Jun 09, 2017 Supervising Radiologist: Gary Tinsley Anesthesia: Conscious Sedation Plan of Activity Patient to Unit: PACU Patient Condition: Good See PACS Report for procedural detail/treatment Gary Tinsley MD Jun 09, 2017 16:07
[2017-06-09] MEDS ORDERED: LIDOCAINE 1%/EPINEPHrine 1:100,000 SOLN 30 ML VIAL OTHER ONE (16:54)
[2017-06-09] MEDS: SODIUM CHLORIDE 0.9% 10 ML VIAL IRRIGATION SCH (17:00)
--- NOTE | 2017-06-09 17:54 | PD.ONC.PN ---
Subjective Subjective Remarks Events last 24 hours noted. Feeling better. Abdominal pain better, catheter pain mild. Objective Data Date Time Temp Pulse Resp B/P (MAP) Pulse Ox O2 Delivery O2 Flow Rate FiO2 06/09/17 17:25 112 20 103/49 (67) 100 06/09/17 16:55 100 16 109/56 (73) 95 06/09/17 16:40 110 16 124/70 (88) 96 06/09/17 16:26 97.3 105 16 113/70 (84) 95 06/09/17 12:00 98.2 80 18 110/70 (83) 96 06/09/17 08:00 97.7 83 18 105/75 (85) 96 06/09/17 04:05 18 06/09/17 00:00 96.2 85 22 133/88 (103) 98 06/08/17 20:00 96.9 95 22 135/80 (98) 100 06/08/17 18:35 97.6 80 18 119/77 (91) 100 06/08/17 18:20 81 16 117/77 (90) 100 06/08/17 18:08 97.7 64 16 96/60 (72) 100 06/09/17 06/09/17 06/09/17 07:00 15:00 23:00 Intake Total 1050 ml 240 ml Balance 1050 ml 240 ml Result Diagram: 06/08/17 0547 06/08/17 0547 Culture Results Microbiology Date/Time Source Procedure Growth Status 06/09/17 15:50 Fluid Other Gram Stain Pending Received 06/09/17 15:50 Fluid Other Body Fluid Culture Pending Received Administered Medications Medications (Trade) Dose Ordered Sig/Wes Route PRN Reason Start Time Stop Time Status Last Admin Dose Admin Sodium Chloride (NS Flush) 2 ml BID IV FLUSH 06/05/17 21:00 06/07/17 10:19 Lorazepam (Ativan) 1 mg Q8H PRN PO ANXIETY 06/05/17 19:00 06/09/17 11:55 Dicyclomine HCl (Bentyl) 20 mg QID PO 06/06/17 13:00 06/09/17 11:55 Sodium Bicarbonate 75 meq/Sodium Chloride 1,075 ml @ 100 mls/hr [id number] IV 06/06/17 21:00 06/09/17 09:34 Tamsulosin HCl (Flomax) 0.4 mg DAILY PO 06/07/17 10:00 06/09/17 09:34 Acetaminophen/ Hydrocodone Bitart ([place] 10-325 Mg) 1 tab Q4H PRN PO pain 06/08/17 12:45 06/09/17 14:36 Lidocaine HCl (Lidoderm 5% Patch.12 Hr) 1 patch DAILY T-DERMAL 06/08/17 13:00 06/09/17 09:36 Piperacillin Sod/ Tazobactam Sod 50 ml @ 100 mls/hr Q6H IV 06/08/17 21:00 06/09/17 14:30 Iron Sucrose 100 mg/Sodium Chloride 105 ml @ 105 mls/hr DAILY IV 06/09/17 13:00 06/11/17 09:59 06/09/17 14:30 Objective Remarks GENERAL: Middle-aged male, obese, in stretcher post procedure. SKIN: Cool and dry with mottling noted over the extremities. HEAD: Normocephalic. EYES: No scleral icterus. No injection or drainage. NECK: Supple, trachea midline. No JVD or lymphadenopathy. LYMPHATIC: No adenopathy. CARDIOVASCULAR: Regular rate and rhythm without murmurs. RESPIRATORY: Breath sounds equal bilaterally. No accessory muscle use. GASTROINTESTINAL: Obese belly, round, soft, mild tenderness, well-healed right lower quadrant surgical incision noted. RUQ drain noted. EXTREMITIES: Bilateral pretibial edema with mottling of the skin over his knees bilaterally. MUSCULOSKELETAL: Adequate muscle tone. NEUROLOGICAL: No obvious focal deficit. Awake, alert, and oriented x3. Assessment/Plan Assessment Mr. Sinclair is a 56-year-old male who was diagnosed 30 some years ago with an adenocarcinoma of the colon; the patient at that time was living in [facility] and underwent surgical resection at the [facility]. He subsequently reports receiving a full year of adjuvant chemotherapy. He reports having been well ever since from an oncologic standpoint. About 4 weeks ago he developed influenza and became acutely ill. He reports never having really recovered from those symptoms. In late April he presented to this facility with the above-noted symptoms, he underwent imaging studies and was noted to have an abnormal enhancing lesion involving the lower portion of the right hepatic lobe, the enhancement characteristics were concerning for a multi lobulated/pocketed abscess involving the liver, he was also noted to have thickening of the colonic wall concerning for diverticulitis. The patient was treated with antibiotics and then discharged home after about 3 days in the hospital and remained on oral antibiotics. The abscess was not drained and per comments in the original CT scan dated 05/20/2017 the radiologist determined the lesion to be in such a location that placement of a percutaneous drainage tube would be difficult. Other differential diagnoses included possible malignancy. After 2 days outside of the hospital the patient felt persistently ill, he describes feeling as if he had no energy and had no appetite. He continued to lose weight and came back and [facility] for further workup and management. This time he was noted to have acute on chronic renal failure. Repeat imaging studies revealed persistence of the lesion within the liver and colonic wall thickening. Colonoscopy was performed and diverticulitis/diverticulosis was identified. He has not been on antibiotics since she's been in this hospital. The oncology service been asked to see him given his previous history of colon carcinoma and the possibility that the hepatic lesion may represent a late recurrence. Plan 1. Hepatic lesion with enhancement characteristics as noted on 05/20/2017 to be consistent with either a multilobulated/multi-pocketed abscess versus a metastatic lesion. IR placed drain, lesion most c/w abscess. Cultures sent. Pending cytology. Noted normocytic anemia, no overt bleeding, no transfusion needed Renal function continue to improve. The oncology service of follow along with you. Kaya Oakes MD Jun 09, 2017 17:54
[2017-06-09] MEDS: ONDANSETRON HCL 4 MG/2 ML VIAL IVP PRN (18:16)
[2017-06-09] MEDS: ALLOPURINOL 300 MG TAB PO SCH (18:49)
--- NOTE | 2017-06-09 23:30 | HHI.GIFU ---
Subjective Remarks Patient claiming bed comfortably, anticipating to go to have his biopsy/ drainage performed on the liver lesion, no new complaints Objective Vitals I&O Vital Signs Date Time Temp Pulse Resp B/P (MAP) Pulse Ox O2 Delivery O2 Flow Rate FiO2 06/09/17 20:10 97.0 117 22 131/67 (88) 95 06/09/17 17:54 97.5 106 18 108/64 (79) 100 06/09/17 17:25 112 20 103/49 (67) 100 06/09/17 16:55 100 16 109/56 (73) 95 06/09/17 16:40 110 16 124/70 (88) 96 06/09/17 16:26 97.3 105 16 113/70 (84) 95 06/09/17 12:00 98.2 80 18 110/70 (83) 96 06/09/17 08:00 97.7 83 18 105/75 (85) 96 06/09/17 04:05 18 06/09/17 00:00 96.2 85 22 133/88 (103) 98 I/O 06/09/17 06/09/17 06/09/17 06/10/17 06/10/17 06/10/17 07:00 15:00 23:00 07:00 15:00 23:00 Intake Total 1050 ml 620 ml Output Total 0 ml Balance 1050 ml 620 ml Intake Oral 270 ml IV Total 1050 ml 350 ml Drainage Total 0 ml # Voids 4 Laboratory Date/Time Source Procedure Growth Status 06/05/17 15:13 Blood Peripheral Aerobic Blood Culture - Preliminary NO GROWTH IN 4 DAYS Resulted 06/05/17 15:13 Blood Peripheral Anaerobic Blood Culture - Preliminary NO GROWTH IN 4 DAYS Resulted 06/09/17 15:50 Fluid Other Gram Stain Pending Received 06/09/17 15:50 Fluid Other Body Fluid Culture Pending Received Physical Exam HEENT: Pupils round and reactive to light; normocephalic; atraumatic; no jaundice. Throat is clear. Obese NECK: Neck is supple, no JVD, no lymphadenopathy. CHEST: Chest is clear to auscultation and percussion. CARDIAC: Regular rate and rhythm with no murmur gallop or rubs. ABDOMEN: Soft, nondistended, mild right upper quadrant tenderness; no hepatosplenomegaly; bowel sounds are present in all four quadrants. EXTREMITIES: No clubbing, cyanosis, or edema. SKIN: Normal; no rash; no jaundice. CLOTHES IRONER: No focal deficits; alert and oriented times three. Assessment and Plan Plan 56-year-old male with lesion possibly malignancy versus abscess, patient is getting drainage and possible biopsy, he had a history of colon cancer in the past with significant anemia showed colon polyps and stricture Plan IR to perform biopsy/drainage placement Follow-up biopsy to rule out malignancy Infectious disease and hematology on board Significant anemia we will monitor H&H Ayan David MD Jun 09, 2017 23:30
[2017-06-09] MEDS ORDERED: ACETAMINOPHEN/HYDROcodone 325 MG/5 MG TAB PO ONE (23:45)
[2017-06-10] VITALS (7 sets, daily range): BP systolic 110–143; BP diastolic 68–92; PULSE 73–99; RESP 16–22; TEMP 96.3–97.9; O2SAT 94–97
[2017-06-10] MEDS: SODIUM CHLORIDE 0.9% 10 ML VIAL IRRIGATION SCH ×4 (01:25→23:56)
[2017-06-10] MEDS: PIPERACIL-TAZO 2.25 GM PREMIX 50 ML IV SCH ×4 (03:15→23:53)
[2017-06-10] MEDS: ACETAMINOPHEN/HYDROcodone 325 MG/10 MG TAB PO PRN ×5 (05:20→21:59)
[2017-06-10] MEDS: LORazepam 1 MG TAB PO PRN ×3 (06:22→21:58)
[2017-06-10 06:56] LABS: AUTOMATED NEUTROPHIL # 4.3 TH/MM3 (1.8-7.7); BASOPHIL % 0.6 % (0.0-2.0); EOSINOPHIL # 0.2 TH/MM3 (0-0.4); EOSINOPHIL % 3.1 % (0.0-4.0); HEMATOCRIT 23.1 % (39.0-51.0); HEMOGLOBIN 7.4 GM/DL (13.0-17.0); LYMPH % 15.5 % (9.0-44.0); LYMPHOCYTE # 0.9 TH/MM3 (1.0-4.8); MEAN CELL VOLUME 95.5 FL (80.0-100.0); MEAN CORPUSCULAR HEMOGLOBIN 30.7 PG (27.0-34.0); MEAN CORPUSCULAR HGB CONC 32.2 % (32.0-36.0); MEAN PLATELET VOLUME 6.5 FL (7.0-11.0); MONO % 9.4 % (0.0-8.0); MONOCYTE # 0.6 TH/MM3 (0-0.9); NEUT % 71.4 % (16.0-70.0); PLATELET COUNT 542 TH/MM3 (150-450); RED BLOOD COUNT 2.42 MIL/MM3 (4.50-5.90); RED CELL DISTRIBUTION WIDTH 15.7 % (11.6-17.2)
[2017-06-10 07:23] LABS: ALBUMIN 1.7 GM/DL (3.4-5.0); BICARBONATE 26.6 MEQ/L (21.0-32.0); CREATININE 2.2 MG/DL (0.60-1.30); TOTAL BILIRUBIN ADULT 0.4 MG/DL (0.2-1.0); TOTAL PROTEIN 6.3 GM/DL (6.4-8.2)
[2017-06-10 07:28] LABS: CALCIUM-PROTEIN CORRECTED 7.4 MG/DL (8.5-10.1)
[2017-06-10] MEDS ORDERED: ALTEPLASE RECOMBINANT 100 MG VIAL IV ONE (08:00)
--- NOTE | 2017-06-10 08:11 | RADRPT ---
EXAM DATE/TIME: 06/09/2017 15:26 [facility] COMPARISON: CT ABDOMEN & PELVIS W CONTRAST, May 20, 2017, 13:39. CT ABDOMEN & PELVIS W/O CONTRAST, May, 15:40. INDICATIONS : 56-year-old male with remote history of colon CA and newly diagnosed diverticulitis and potential sig moid mass with large 9 cm low density lesion in the inferior right lobe of the liver concerning for h epatic abscess. SEDATION TIME: 30 minutes MEDICATION(S): 1.) 3 mg midazolam (Versed) IV 2.) 150 mcg fentanyl (Sublimaze) IV DEVICE(S): 1.) 10 Fr Skater 2.) 18 gauge Fisher blunt needle 3.) Antunez FLUID: Total volume of 2 cc of cloudy, red fluid was removed. Fluid was sent for laboratory ordered studies. MEDICAL HISTORY : Cerebrovascular disease. Cardiovascular disease Gastroesophageal reflux disease.Hepatic lesions. [place] n cancer. SURGICAL HISTORY : None. ENCOUNTER: Initial ACUITY: 1 day PAIN SCORE: 0/10 LOCATION: Right liver PROCEDURE: 1.) Conscious sedation with continuous EKG and oximetry monitoring. 2.) EKG and oximetry remained stable throughout the procedure. PROCEDURE : 1. CT guided drainage of liver abscess 2. Conscious sedation with continuous EKG and oximetry monitoring. The risks, benefits and alternatives to the procedure were explained and verbal and written consent w as obtained. Using automated exposure control and adjustment of the mA and/or kV according to patient size, radiation dose was kept as low as reasonably achievable to obtain optimal diagnostic quality i mages. The site was prepped in sterile fashion. Full sterile technique was used, including cap, ma sk, sterile gloves and gown and a large sterile sheet. Hand hygiene and 2% chlorhexidine and/or beta dine/alcohol prep was utilized per protocol for cutaneous antisepsis. The skin and subcutaneous tiss ues were infiltrated with local anesthetic solution. DICOM format image data is available electronic ally for review and comparison. Using CT guidance the prescribed site was localized. 18 gauge Fisher needle was advanced into the l esion under careful CT guidance. Originally, no fluid could be aspirated and the lesion felt solid. T herefore, biopsies were performed. Following several manipulations of the needle a small amount of pu rulent material was aspirated. Therefore, decision was made to proceed with drainage catheter placeme nt. Drainage was performed using the prescribed catheter. The patient tolerated the procedure well and there were no complications. Conscious sedation was per formed with the prescribed dosages and duration as above in the presence of an independent trained ra diology nurse to assist in the monitoring of the patient. EKG and oximetry remained stable throughou t the procedure. The patient tolerated the procedure well and there were no complications. The patient was sent to pos t anesthesia recovery in stable condition. CONCLUSION: Uncomplicated CT guided drainage, as above. Gary Tinsley MD on June 10, 2017 at 8:05 Board Certified Radiologist. This report was verified electronically.
--- NOTE | 2017-06-10 08:14 | RADRPT ---
EXAM DATE/TIME: 06/09/2017 15:26 [facility] COMPARISON: No previous studies available for comparison. INDICATIONS : 56 year-old male with remote history of colon CVA and new 9 cm lesion in the inferior right lobe of t he liver. SEDATION TIME: 30 minutes BIOPSY SITE: Right liver MEDICATION(S): 1.) 3 mg midazolam (Versed) IV 2.) 150 mcg fentanyl (Sublimaze) IV DEVICE(S): 1.) 20 gauge Temno core biopsy needle MEDICAL HISTORY : Cerebrovascular disease. Cardiovascular disease Gastroesophageal reflux disease.Hepaticlesions. Colon cancer. SURGICAL HISTORY : None. ENCOUNTER: Initial ACUITY: 1 day PAIN SCORE: 0/10 LOCATION: Right liver A total of four core specimen(s) were obtained and sent to the laboratory for pathologic evaluation. PROCEDURE: 1. CT guided liver biopsy. 2. Conscious sedation with continuous EKG and oximetry monitoring. 3. EKG and oximetry remained stable throughout the procedure. Prior to the procedure informed consent was obtained. Any appropriate prior imaging studies were rev iewed. Using automated exposure control and adjustment of the mA and/or kV according to patient size, radiat ion dose was kept as low as reasonably achievable to obtain optimal diagnostic quality images. DICOM format image data is available electronically for review and comparison. The site was prepped in a sterile fashion. Full sterile technique was used, including cap, mask, queenie rile gloves and gown and a large sterile sheet. Hand hygiene and 2% chlorhexidine and/or betadine/al cohol prep was utilized per protocol for cutaneous antisepsis. The skin and subcutaneous tissues wer e infiltrated with local anesthetic solution. With CT guidance the previously identified target was localized. An 18 gauge needle was advanced into the lesion. Since the lesion felt solid the decision was made proceed with biopsy. Multiple 20 gauge core biopsies were obtained utilizing a 20 gauge Temno biopsy device yielding solid appearing tissue . Following several manipulations of the Fisher curved needle a small amount of purulence fluid was aspirated. Therefore, drainage catheter was placed. Please see the dictation report for the drainage catheter placement for details. Follow-up CT scan reveals no hemorrhage. The patient tolerated the procedure well and there were no complications. The patient was returned to the Radiology Outpatient Unit in stable condition. CONCLUSION: Uncomplicated CT guided biopsy. Gary Tinsley MD on June 10, 2017 at 8:09 Board Certified Radiologist. This report was verified electronically.
[2017-06-10] MEDS: TAMSULOSIN HCL 0.4 MG CAP PO SCH (08:59)
[2017-06-10] MEDS ORDERED: [UNRECOGNIZED DRUG - OTHER] IV ONE (09:00)
[2017-06-10] MEDS: LIDOCAINE HCL 5% PATCH T-DERMAL SCH (09:00)
[2017-06-10] MEDS: ALLOPURINOL 300 MG TAB PO SCH (09:00)
[2017-06-10] MEDS: DICYCLOMINE HCL 20 MG TAB PO SCH ×4 (09:00→21:59)
[2017-06-10] MEDS ORDERED: SODIUM CHLORIDE 0.9% IV ONE (09:00)
[2017-06-10] MEDS: SODIUM CHLORIDE 0.9% FLUSH 10 ML FLUSH IV FLUSH SCH ×2 (09:01→23:53)
[2017-06-10] MEDS: IRON SUCROSE INJ 100 MG in SODIUM CHLORIDE 0.9% INJ 100 ML IV SCH (10:10)
[2017-06-10] MEDS ORDERED: MORPHINE SULFATE 2 MG/ML SYRINGE IV PUSH ONE (11:00)
[2017-06-10] MEDS: ONDANSETRON HCL 4 MG/2 ML VIAL IVP PRN ×2 (11:28→19:22)
[2017-06-10] MEDS: SODIUM CHLORIDE 0.9% FLUSH 10 ML FLUSH IV FLUSH PRN ×2 (11:28→17:23)
--- NOTE | 2017-06-10 11:29 | HHI.PR ---
Subjective Remarks Patient seen and evaluated in follow up for Liver abscess Complains of right sided pain around Drain Objective Vitals Vital Signs Date Time Temp Pulse Resp B/P (MAP) Pulse Ox O2 Delivery O2 Flow Rate FiO2 06/10/17 08:00 96.3 77 16 110/82 (91) 96 06/10/17 00:31 96.8 95 22 122/68 (86) 97 06/09/17 20:10 97.0 117 22 131/67 (88) 95 06/09/17 17:54 97.5 106 18 108/64 (79) 100 06/09/17 17:25 112 20 103/49 (67) 100 06/09/17 16:55 100 16 109/56 (73) 95 06/09/17 16:40 110 16 124/70 (88) 96 06/09/17 16:26 97.3 105 16 113/70 (84) 95 06/09/17 12:00 98.2 80 18 110/70 (83) 96 I/O 06/09/17 06/09/17 06/09/17 06/10/17 06/10/17 06/10/17 07:00 15:00 23:00 07:00 15:00 23:00 Intake Total 1050 ml 620 ml 2200 ml Output Total 0 ml 350 ml Balance 1050 ml 620 ml 1850 ml Intake Oral 270 ml 1200 ml IV Total 1050 ml 350 ml 1000 ml Output Urine Total 350 ml Drainage Total 0 ml # Voids 4 # Bowel Movements 1 Result Diagram: 06/10/17 0550 06/10/17 0550 Imaging Last Impressions Liver Biopsy CT 06/09/17 0000 Signed Impressions: Service Date/Time: Friday, June 09, 2017 15:26 - CONCLUSION: Uncomplicated CT guided biopsy. Gary Tinsley MD Abscess Drainage CT 06/09/17 0000 Signed Impressions: Service Date/Time: Friday, June 09, 2017 15:26 - CONCLUSION: Uncomplicated CT guided drainage, as above. Gary Tinsley MD Renal Ultrasound 06/06/17 0000 Signed Impressions: Service Date/Time: Tuesday, June 06, 2017 13:20 - CONCLUSION: The renal cortex is mildly thinned bilaterally and slightly increased in echogenicity. There is a single benign cysts identified in the right kidney. No evidence of hydronephrosis. Rhonda Cr MD Chest X-Ray [id number] Signed Impressions: Service Date/Time: Monday, June 05, 2017 15:23 - CONCLUSION: 1. No acute cardiopulmonary disease. Gary Tinsley MD Abdomen/Pelvis CT [id number] Signed Impressions: Service Date/Time: Monday, June 05, 2017 15:40 - CONCLUSION: 1. 8.8 cm liver mass suspicious for metastatic disease or primary hepatic tumor. 2. Focal mural thickening distal sigmoid colon suspicious for malignancy. 3. Mural thickening in the mid left colon with surrounding inflammatory changes probably diverticulitis but cannot exclude mass. Overall mural thickening on the left side appears slightly improved from May 20. Luther Slaughter MD Objective Remarks GENERAL: This is a well-nourished, well-developed patient, complaining of back pain CARDIOVASCULAR: Regular rate and rhythm without murmurs, gallops, or rubs. RESPIRATORY: Clear to auscultation. Breath sounds equal bilaterally. No wheezes , rales, or rhonchi. GASTROINTESTINAL: right liver rain, Abdomen soft, non-tender, nondistended. Normal active bowel sounds MUSCULOSKELETAL: Extremities without clubbing, cyanosis, or edema. NEURO: Alert & Oriented x4 to person, place, time, situation. Moves all ext x4 A/P Problem List: (1) Acute blood loss anemia ICD Code: D62 - Acute posthemorrhagic anemia Plan: Patient still with anemia and hemoglobin is 7.4 We'll transfuse as needed Bleeding appears to be secondary to GI losses, Iron deficiency and Chronic illness IV Ironx3 (2) GI bleed ICD Code: K92.2 - Gastrointestinal hemorrhage, unspecified Plan: Secondary to diverticular disease but also worrisome for masses which may be recurrent CA Hx of colon CA 20 years ago that was treated by chemotherapy and surgical resection Will follow-up workup in progress with endoscopy GI following (3) Acute kidney injury ICD Code: N17.9 - Acute kidney failure, unspecified Status: Acute Plan: Greatly improved, likely prerenal (4) Diverticulitis ICD Code: K57.92 - Diverticulitis of intestine, part unspecified, without perforation or abscess without bleeding Plan: resolved compared to previous CT (5) Chronic pain ICD Code: G89.29 - Other chronic pain Plan: continue home lidocaine patch and oxycodone Pain mgt per dr roblero as an outpatient (6) Liver abscess ICD Code: K75.0 - Abscess of liver Plan: s/p drainage Follow cultures IV Zosyn eval drain for blockages Carina Teixeira MD Jun 10, 2017 11:29
[2017-06-10] MEDS ORDERED: SODIUM CHLOR 0.9% 250 ML INJ 250 ML IV ONE (13:00)
--- NOTE | 2017-06-10 17:43 | HHI.GIFU ---
Subjective Remarks Patient laying in bed, he doesn't feel comfortable especially at the site of the drainage he said he has some pain when he moves around because of the drainage tube Objective Vitals I&O Vital Signs Date Time Temp Pulse Resp B/P (MAP) Pulse Ox O2 Delivery O2 Flow Rate FiO2 06/10/17 17:24 97.5 93 18 122/88 97 06/10/17 14:52 18 06/10/17 14:35 97.6 96 18 143/92 94 06/10/17 14:20 97.5 73 18 116/75 95 06/10/17 12:00 97.9 89 17 120/70 (87) 96 06/10/17 08:00 96.3 77 16 110/82 (91) 96 06/10/17 00:31 96.8 95 22 122/68 (86) 97 06/09/17 20:10 97.0 117 22 131/67 (88) 95 06/09/17 17:54 97.5 106 18 108/64 (79) 100 I/O 06/09/17 06/09/17 06/09/17 06/10/17 06/10/17 06/10/17 07:00 15:00 23:00 07:00 15:00 23:00 Intake Total 1050 ml 620 ml 2200 ml 890 ml 430 ml Output Total 0 ml 350 ml Balance 1050 ml 620 ml 1850 ml 890 ml 430 ml Intake Oral 270 ml 1200 ml 300 ml IV Total 1050 ml 350 ml 1000 ml 575 ml Packed Cells 400 ml Blood Product IV Normal Saline Flush 15 ml 30 ml Output Urine Total 350 ml Drainage Total 0 ml # Voids 4 1 # Bowel Movements 1 Laboratory Laboratory Tests Test 06/10/17 05:50 White Blood Count 6.0 Red Blood Count 2.42 Hemoglobin 7.4 Hematocrit 23.1 Mean Corpuscular Volume 95.5 Mean Corpuscular Hemoglobin 30.7 Mean Corpuscular Hemoglobin Concent 32.2 Red Cell Distribution Width 15.7 Platelet Count 542 Mean Platelet Volume 6.5 Neutrophils (%) (Auto) 71.4 Lymphocytes (%) (Auto) 15.5 Monocytes (%) (Auto) 9.4 Eosinophils (%) (Auto) 3.1 Basophils (%) (Auto) 0.6 Neutrophils # (Auto) 4.3 Lymphocytes # (Auto) 0.9 Monocytes # (Auto) 0.6 Eosinophils # (Auto) 0.2 Basophils # (Auto) 0.0 CBC Comment DIFF FINAL Differential Comment Blood Urea Nitrogen 14 Creatinine 2.20 Random Glucose 83 Total Protein 6.3 Albumin 1.7 Calcium Level 7.0 Alkaline Phosphatase 60 Aspartate Amino Transf (AST/SGOT) 10 Alanine Aminotransferase (ALT/SGPT) 14 Total Bilirubin 0.4 Sodium Level 141 Potassium Level 3.9 Chloride Level 106 Carbon Dioxide Level 26.6 Anion Gap 8 Estimat Glomerular Filtration Rate 31 Protein Corrected Calcium 7.4 Date/Time Source Procedure Growth Status 06/05/17 15:13 Blood Peripheral Aerobic Blood Culture - Final NO GROWTH IN 5 DAYS Complete 06/05/17 15:13 Blood Peripheral Anaerobic Blood Culture - Final NO GROWTH IN 5 DAYS Complete 06/09/17 15:50 Fluid Other Gram Stain - Final Resulted 06/09/17 15:50 Fluid Other Body Fluid Culture - Preliminary NO GROWTH IN 24 HOURS. Resulted Physical Exam HEENT: Pupils round and reactive to light; normocephalic; atraumatic; no jaundice. Throat is clear. Obese NECK: Neck is supple, no JVD, no lymphadenopathy. CHEST: Chest is clear to auscultation and percussion. CARDIAC: Regular rate and rhythm with no murmur gallop or rubs. ABDOMEN: Soft, nondistended, mild right upper quadrant tenderness; no hepatosplenomegaly; bowel sounds are present in all four quadrants. EXTREMITIES: No clubbing, cyanosis, or edema. SKIN: Normal; no rash; no jaundice. SENIOR ASIC ENGINEER: No focal deficits; alert and oriented times three. Assessment and Plan Plan 06-09-17 56-year-old male with lesion possibly malignancy versus abscess, patient is getting drainage and possible biopsy, he had a history of colon cancer in the past with significant anemia showed colon polyps and stricture 06-10-17 patient seems to be stable but having more abdominal discomfort no sign of bleeding yet he still have anemia, biopsy still pending, he had biopsy/ drainage done Plan Follow-up biopsy to rule out malignancy monitor H/H if continue to have abdominal we may need to repeat CT scan of the abdomen Ayan David MD Jun 10, 2017 17:43
--- NOTE | 2017-06-10 23:02 | HHI.NPPN ---
Subjective General Problems: Anemia, Hypertension Renal Failure: Chronic, Acute History of Present Illness 56-year-old male who was admitted yesterday with complaints of weakness and shortness of breath with ongoing diarrhea. The patient has a previous history of colon cancer, which was apparently treated in the past and apparently had a negative colonoscopy several years ago. The patient on this admission presented with anemia and was found to have a liver mass suspicious for colon mets with a possible new finding of colon mass as well. He has been seen with oncology and the plan is for a possible liver biopsy. In addition, the patient has been seen with gastroenterology patient had chronic kidney disease and creatinine that ranged from 2.2 to 1.7 in 04/2017. Additional Remarks Patient is alert, now NPO for liver abscess drain, no SOB. Objective Data Data 06/10/17 06/11/17 19:00 07:00 Intake Total 1715 ml 365 ml Output Total 550 ml Balance 1165 ml 365 ml Intake Oral 600 ml 365 ml IV Total 670 ml Packed Cells 400 ml Blood Product IV Normal Saline Flush 45 ml Output Urine Total 350 ml Drainage Total 200 ml # Voids 1 Vital Signs Date Time Temp Pulse Resp B/P (MAP) Pulse Ox O2 Delivery O2 Flow Rate FiO2 06/10/17 20:00 96.8 99 20 123/85 (98) 96 06/10/17 18:31 18 06/10/17 17:24 97.5 93 18 122/88 97 06/10/17 14:35 97.6 96 18 143/92 94 06/10/17 14:20 97.5 73 18 116/75 95 06/10/17 12:00 97.9 89 17 120/70 (87) 96 06/10/17 08:00 96.3 77 16 110/82 (91) 96 06/10/17 00:31 96.8 95 22 122/68 (86) 97 -: 06/10/17 0550 06/10/17 0550 Physical Exam General Appearance: Well Developed, Well Nourished, No Acute Distress Throat Throat Exam: Oral Mucosa [place] & Moist Neck Neck Exam: Neck Supple Pulmonary Resp Exam: Clear Bilaterally Cardiology CV Exam: Regular, Normal Sinus Rhythm Gastrointestinal/Abdomen GI Exam: Soft, Non-Tender, Bowel Sounds Present Integumentary Skin Exam: Warm, Dry, Intact Extremeties Extremities Exam: No Edema Neurologic Neuro Exam: Alert, Awake, Oriented, Speech Clear Assessment/Plan Problem List: (1) OMAR (acute kidney injury) ICD Codes: N17.9 - Acute kidney injury Status: Acute Plan: Patient has chronic kidney disease, and has Acute kidney injury. Now admitted with loose BM and anemia. Creatinine was higher than his baseline. Possibly has an element of pre renal. Continue IVF. Has been non oliguric, Creatinine continue to improve. Continue IVF. Post liver abscess drain placement. Creatinine continue to improve. (2) Metastatic colon cancer to liver ICD Codes: C18.9 - Malignant neoplasm of colon, unspecified; C78.7 - Secondary malignant neoplasm of liver and intrahepatic bile duct Status: Acute Plan: 2. Colon cancer. The patient has a history of colon cancer, which was apparently treated in the past. Patient has apparent liver metastasis with a possible colon mass as well. The patient is being seen with oncology. Continue followup for workup and diagnosis. (3) GI bleed ICD Codes: K92.2 - Gastrointestinal hemorrhage, unspecified Plan: Continue transfusions as needed. Plans is for possible colonoscopy on Thursday. Continue to monitor and follow up with gastroenterology. (4) HTN (hypertension) ICD Codes: I10 - HTN (hypertension) Status: Chronic Plan: Blood pressure is stable at this point. Continue to monitor. Of note, the patient had been on LIBORIO inhibitor at home. Hold LIBORIO inhibitor at this point, given acute renal failure. (5) CKD (chronic kidney disease), stage III ICD Codes: N18.3 - Chronic kidney disease, stage 3 (moderate) Status: Acute Yuly Cowart MD Jun 10, 2017 23:02
[2017-06-11] VITALS: BP 115/85; PULSE 86; RESP 20; TEMP 96.9; O2SAT 95
[2017-06-11] MEDS: ACETAMINOPHEN/HYDROcodone 325 MG/10 MG TAB PO PRN ×3 (03:19→21:44)
[2017-06-11] MEDS: PIPERACIL-TAZO 2.25 GM PREMIX 50 ML IV SCH ×4 (03:23→21:43)
[2017-06-11 06:54] LABS: AUTOMATED NEUTROPHIL # 4.8 TH/MM3 (1.8-7.7); BASOPHIL % 0.4 % (0.0-2.0); EOSINOPHIL # 0.2 TH/MM3 (0-0.4); HEMATOCRIT 27.3 % (39.0-51.0); HEMOGLOBIN 8.3 GM/DL (13.0-17.0); LYMPH % 17.9 % (9.0-44.0); LYMPHOCYTE # 1.2 TH/MM3 (1.0-4.8); MEAN CELL VOLUME 95.3 FL (80.0-100.0); MEAN CORPUSCULAR HEMOGLOBIN 29.1 PG (27.0-34.0); MEAN CORPUSCULAR HGB CONC 30.5 % (32.0-36.0); MEAN PLATELET VOLUME 6.5 FL (7.0-11.0); MONO % 9.2 % (0.0-8.0); MONOCYTE # 0.6 TH/MM3 (0-0.9); NEUT % 69.5 % (16.0-70.0); PLATELET COUNT 525 TH/MM3 (150-450); RED BLOOD COUNT 2.86 MIL/MM3 (4.50-5.90); RED CELL DISTRIBUTION WIDTH 15.6 % (11.6-17.2); WHITE BLOOD COUNT 6.8 TH/MM3 (4.0-11.0)
[2017-06-11 08:00] VITALS: BP 144/91; PULSE 86; RESP 18; TEMP 96.6; O2SAT 97
[2017-06-11] MEDS: TAMSULOSIN HCL 0.4 MG CAP PO SCH (08:57)
[2017-06-11] MEDS: ALLOPURINOL 300 MG TAB PO SCH (08:57)
[2017-06-11] MEDS: DICYCLOMINE HCL 20 MG TAB PO SCH ×4 (08:57→21:44)
[2017-06-11] MEDS: IRON SUCROSE INJ 100 MG in SODIUM CHLORIDE 0.9% INJ 100 ML IV SCH (08:58)
[2017-06-11] MEDS: SODIUM CHLORIDE 0.9% FLUSH 10 ML FLUSH IV FLUSH SCH ×2 (08:58→20:17)
[2017-06-11] MEDS: SODIUM CHLORIDE 0.9% 10 ML VIAL IRRIGATION SCH ×2 (08:58→17:00)
[2017-06-11] MEDS: LIDOCAINE HCL 5% PATCH T-DERMAL SCH (08:59)
[2017-06-11] MEDS: MORPHINE SULFATE 15 MG TAB PO PRN ×3 (12:37→19:04)
[2017-06-11 13:28] VITALS: BP 131/88; PULSE 98; RESP 16; TEMP 96.2
--- NOTE | 2017-06-11 13:44 | HHI.PR ---
Subjective Remarks Patient seen and evaluated today in follow-up for abdominal pain around the drainage site which is worse when he moves and he is still complain of abdominal pain and right sided after during placement Good bowel movements and patient is ambulatory Cultures are negative Infectious disease following Objective Vitals Vital Signs Date Time Temp Pulse Resp B/P (MAP) Pulse Ox O2 Delivery O2 Flow Rate FiO2 06/11/17 13:28 96.2 98 16 131/88 (102) 06/11/17 09:57 18 06/11/17 08:00 96.6 86 18 144/91 (108) 97 06/11/17 00:00 96.9 86 20 115/85 (95) 95 06/10/17 20:00 96.8 99 20 123/85 (98) 96 06/10/17 17:24 97.5 93 18 122/88 97 06/10/17 14:35 97.6 96 18 143/92 94 06/10/17 14:20 97.5 73 18 116/75 95 I/O 06/10/17 06/10/17 06/10/17 06/11/17 06/11/17 06/11/17 07:00 15:00 23:00 07:00 15:00 23:00 Intake Total 2200 ml 890 ml 1190 ml 120 ml 300 ml Output Total 350 ml 950 ml 300 ml Balance 1850 ml 890 ml 240 ml -180 ml 300 ml Intake Oral 1200 ml 300 ml 665 ml 120 ml 300 ml IV Total 1000 ml 575 ml 95 ml Packed Cells 400 ml Blood Product IV Normal Saline Flush 15 ml 30 ml Output Urine Total 350 ml 750 ml 300 ml Drainage Total 200 ml # Voids 1 1 1 # Bowel Movements 1 Result Diagram: 06/11/17 0555 06/10/17 0550 Objective Remarks GENERAL: This is a well-nourished, well-developed patient, complaining of back pain CARDIOVASCULAR: Regular rate and rhythm without murmurs, gallops, or rubs. RESPIRATORY: Clear to auscultation. Breath sounds equal bilaterally. No wheezes , rales, or rhonchi. GASTROINTESTINAL: right liver rain, Abdomen soft, non-tender, nondistended. Normal active bowel sounds MUSCULOSKELETAL: Extremities without clubbing, cyanosis, or edema. NEURO: Alert & Oriented x4 to person, place, time, situation. Moves all ext x4 A/P Problem List: (1) Acute blood loss anemia ICD Code: D62 - Acute posthemorrhagic anemia Plan: Patient still with anemia and hemoglobin is 8.3 Status post 1 unit packed red blood cells Bleeding appears to be secondary to GI losses, Iron deficiency and Chronic illness Status post iron Path negative (2) GI bleed ICD Code: K92.2 - Gastrointestinal hemorrhage, unspecified Plan: Secondary to diverticular disease but also worrisome for masses which may be recurrent CA Hx of colon CA 20 years ago that was treated by chemotherapy and surgical resection Stable (3) Acute kidney injury ICD Code: N17.9 - Acute kidney failure, unspecified Status: Acute Plan: Resolved (4) Diverticulitis ICD Code: K57.92 - Diverticulitis of intestine, part unspecified, without perforation or abscess without bleeding Plan: resolved compared to previous CT (5) Chronic pain ICD Code: G89.29 - Other chronic pain Plan: continue home lidocaine patch and oxycodone Morphine p.o. for breakthrough Pain mgt per dr roblero as an outpatient (6) Liver abscess ICD Code: K75.0 - Abscess of liver Plan: s/p drainage Cultures remain negative IV Zosyn Drain is working well Liver path pending (7) Hypocalcemia ICD Code: E83.51 - Hypocalcemia Plan: replace check mag Discharge Planning when drain removed likely dc [place] Carina Teixeira MD Jun 11, 2017 13:44
--- NOTE | 2017-06-11 14:06 | HHI.GIFU ---
Subjective Remarks Awake, resting in the bed still having some sharp mid abdominal pain Right upper quadrant biliary drain intact draining serous medium pink tinged bloody drainage Afebrile Decreased appetite with some nausea off and on (Keyanna Hsu) Objective Vitals I&O Vital Signs Date Time Temp Pulse Resp B/P (MAP) Pulse Ox O2 Delivery O2 Flow Rate FiO2 06/11/17 13:28 96.2 98 16 131/88 (102) 06/11/17 09:57 18 06/11/17 08:00 96.6 86 18 144/91 (108) 97 06/11/17 00:00 96.9 86 20 115/85 (95) 95 06/10/17 20:00 96.8 99 20 123/85 (98) 96 06/10/17 17:24 97.5 93 18 122/88 97 06/10/17 14:35 97.6 96 18 143/92 94 06/10/17 14:20 97.5 73 18 116/75 95 I/O 06/10/17 06/10/17 06/10/17 06/11/17 06/11/17 06/11/17 07:00 15:00 23:00 07:00 15:00 23:00 Intake Total 2200 ml 890 ml 1190 ml 120 ml 300 ml Output Total 350 ml 950 ml 300 ml Balance 1850 ml 890 ml 240 ml -180 ml 300 ml Intake Oral 1200 ml 300 ml 665 ml 120 ml 300 ml IV Total 1000 ml 575 ml 95 ml Packed Cells 400 ml Blood Product IV Normal Saline Flush 15 ml 30 ml Output Urine Total 350 ml 750 ml 300 ml Drainage Total 200 ml # Voids 1 1 1 # Bowel Movements 1 Laboratory Laboratory Tests Test 06/11/17 05:55 White Blood Count 6.8 Red Blood Count 2.86 Hemoglobin 8.3 Hematocrit 27.3 Mean Corpuscular Volume 95.3 Mean Corpuscular Hemoglobin 29.1 Mean Corpuscular Hemoglobin Concent 30.5 Red Cell Distribution Width 15.6 Platelet Count 525 Mean Platelet Volume 6.5 Neutrophils (%) (Auto) 69.5 Lymphocytes (%) (Auto) 17.9 Monocytes (%) (Auto) 9.2 Eosinophils (%) (Auto) 3.0 Basophils (%) (Auto) 0.4 Neutrophils # (Auto) 4.8 Lymphocytes # (Auto) 1.2 Monocytes # (Auto) 0.6 Eosinophils # (Auto) 0.2 Basophils # (Auto) 0.0 CBC Comment DIFF FINAL Differential Comment Date/Time Source Procedure Growth Status 06/05/17 15:13 Blood Peripheral Aerobic Blood Culture - Final NO GROWTH IN 5 DAYS Complete 06/05/17 15:13 Blood Peripheral Anaerobic Blood Culture - Final NO GROWTH IN 5 DAYS Complete 06/09/17 15:50 Fluid Other Gram Stain - Final Resulted 06/09/17 15:50 Fluid Other Body Fluid Culture - Preliminary NO GROWTH IN 48 HOURS. Resulted Imaging Last Impressions Liver Biopsy CT 06/09/17 0000 Signed Impressions: Service Date/Time: Friday, June 09, 2017 15:26 - CONCLUSION: Uncomplicated CT guided biopsy. Gary Tinsley MD Abscess Drainage CT 06/09/17 0000 Signed Impressions: Service Date/Time: Friday, June 09, 2017 15:26 - CONCLUSION: Uncomplicated CT guided drainage, as above. Gary Tinsley MD Renal Ultrasound 06/06/17 0000 Signed Impressions: Service Date/Time: Tuesday, June 06, 2017 13:20 - CONCLUSION: The renal cortex is mildly thinned bilaterally and slightly increased in echogenicity. There is a single benign cysts identified in the right kidney. No evidence of hydronephrosis. Rhonda Cr MD Chest X-Ray 06/05/17 1457 Signed Impressions: Service Date/Time: Monday, June 05, 2017 15:23 - CONCLUSION: 1. No acute cardiopulmonary disease. Gary Tinsley MD Abdomen/Pelvis CT 06/05/17 1457 Signed Impressions: Service Date/Time: Monday, June 05, 2017 15:40 - CONCLUSION: 1. 8.8 cm liver mass suspicious for metastatic disease or primary hepatic tumor. 2. Focal mural thickening distal sigmoid colon suspicious for malignancy. 3. Mural thickening in the mid left colon with surrounding inflammatory changes probably diverticulitis but cannot exclude mass. Overall mural thickening on the left side appears slightly improved from May 20. Luther Slaughter MD Physical Exam HEENT: Pupils round and reactive to light; normocephalic; atraumatic; Obese NECK: Neck is supple, large CHEST: Chest is clear without audible rhonchi or wheezing CARDIAC: Regular rate and rhythm ABDOMEN: Obese, large,taut, mild distention with some mild to moderate bloating , mild right upper quadrant tenderness including mid abdominal tenderness; bowel sounds are present in all four quadrants. EXTREMITIES: Mild lower extremity edema. SKIN: Normal; no rash; no jaundice. 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 (Keyanna Hsu) Assessment and Plan Plan 06-09-17 56-year-old male with lesion possibly malignancy versus abscess, patient is getting drainage and possible biopsy, he had a history of colon cancer in the past with significant anemia showed colon polyps and stricture 06-10-17 patient seems to be stable but having more abdominal discomfort no sign of bleeding yet he still have anemia, biopsy still pending, he had biopsy/ drainage done 06/11/17. Patient resting in the bed biliary tube intact draining serous bloody drainage Still having some mild mid abdominal pain some radiation to the right upper quadrant but does note some mild improvement and comfortable with pain meds. Hemoglobin steady at 8.3. Abdomen tympanic, decreased appetite but states it is starting to improve some. Nausea but no active vomiting. Which showed an 8.8 cm liver mass suspicious for metastatic disease or primary hepatic tumor focal mural to continue in 6 morning: Suspicious also for malignancy thickening in the mid left colon with surrounding inflammatory changes probable diverticulitis but cannot exclude mass. Patient appears slightly anxious over current condition, this does note that he is feeling somewhat better. Negative C. difficile Plan Diet, heart healthy encouraged patient to try to eat and drink as much as possible to maintain his stamina Bentyl as needed Zofran as needed Follow-up biopsy to rule out malignancy monitor H/H and other labs Consider CT scan of the abdomen if pain continues. (Keyanna Hsu) Plan Patient was seen and examined, agree with above-noted, await biopsy results, feeling much better today than yesterday with still some abdominal discomfort (Ayan David MD) Keyanna Hsu Jun 11, 2017 14:06 Ayan David MD Jun 11, 2017 18:31
--- NOTE | 2017-06-11 14:42 | HHI.NPPN ---
Subjective General Problems: Anemia, Hypertension Renal Failure: Chronic, Acute History of Present Illness 56-year-old male who was admitted yesterday with complaints of weakness and shortness of breath with ongoing diarrhea. The patient has a previous history of colon cancer, which was apparently treated in the past and apparently had a negative colonoscopy several years ago. The patient on this admission presented with anemia and was found to have a liver mass suspicious for colon mets with a possible new finding of colon mass as well. He has been seen with oncology and the plan is for a possible liver biopsy. In addition, the patient has been seen with gastroenterology patient had chronic kidney disease and creatinine that ranged from 2.2 to 1.7 in 04/2017. Additional Remarks Patient is alert, abd. pain is better, no SOB. Objective Data Data 06/11/17 06/12/17 19:00 07:00 Intake Total 300 ml Balance 300 ml Intake Oral 300 ml Vital Signs Date Time Temp Pulse Resp B/P (MAP) Pulse Ox O2 Delivery O2 Flow Rate FiO2 06/11/17 13:28 96.2 98 16 131/88 (102) 06/11/17 09:57 18 06/11/17 08:00 96.6 86 18 144/91 (108) 97 06/11/17 00:00 96.9 86 20 115/85 (95) 95 06/10/17 20:00 96.8 99 20 123/85 (98) 96 06/10/17 17:24 97.5 93 18 122/88 97 -: 06/11/17 0555 06/10/17 0550 Physical Exam General Appearance: Well Developed, Well Nourished, No Acute Distress Throat Throat Exam: Oral Mucosa [place] & Moist Neck Neck Exam: Neck Supple Pulmonary Resp Exam: Clear Bilaterally Cardiology CV Exam: Regular, Normal Sinus Rhythm Gastrointestinal/Abdomen GI Exam: Soft, Non-Tender, Bowel Sounds Present Integumentary Skin Exam: Warm, Dry, Intact Extremeties Extremities Exam: No Edema Neurologic Neuro Exam: Alert, Awake, Oriented, Speech Clear Assessment/Plan Problem List: (1) OMAR (acute kidney injury) ICD Codes: N17.9 - Acute kidney injury Status: Acute Plan: Patient has chronic kidney disease, and has Acute kidney injury. Now admitted with loose BM and anemia. Creatinine was higher than his baseline. Possibly has an element of pre renal. Continue IVF. Has been non oliguric, Creatinine continue to improve. Continue IVF. Post liver abscess drain placement. Urine out put is adequate. Avoid Nephrotoxins. No new BMP. (2) Metastatic colon cancer to liver ICD Codes: C18.9 - Malignant neoplasm of colon, unspecified; C78.7 - Secondary malignant neoplasm of liver and intrahepatic bile duct Status: Acute Plan: 2. Colon cancer. The patient has a history of colon cancer, which was apparently treated in the past. Patient has apparent liver metastasis with a possible colon mass as well. The patient is being seen with oncology. Continue followup for workup and diagnosis. (3) GI bleed ICD Codes: K92.2 - Gastrointestinal hemorrhage, unspecified Plan: Continue transfusions as needed. Plans is for possible colonoscopy on Thursday. Continue to monitor and follow up with gastroenterology. (4) HTN (hypertension) ICD Codes: I10 - HTN (hypertension) Status: Chronic Plan: Blood pressure is stable at this point. Continue to monitor. Of note, the patient had been on LIBORIO inhibitor at home. Hold LIBORIO inhibitor at this point, given acute renal failure. (5) CKD (chronic kidney disease), stage III ICD Codes: N18.3 - Chronic kidney disease, stage 3 (moderate) Status: Acute Yuly Cowart MD Jun 11, 2017 14:42
[2017-06-11] MEDS: CALCIUM CARBONATE 1.25 GM (CA 500 MG) TAB PO SCH ×2 (15:25→21:44)
[2017-06-11 17:30] VITALS: BP 124/90; PULSE 85; RESP 18; TEMP 97.2
[2017-06-11 20:00] VITALS: BP 129/81; PULSE 95; RESP 20; TEMP 96.8; O2SAT 96
[2017-06-11] MEDS: HEPARIN SODIUM - SQ 10,000 UNITS/ML VIAL SQ SCH (21:00)
[2017-06-12] VITALS: BP 126/80; PULSE 79; RESP 20; TEMP 97.4; O2SAT 96
[2017-06-12] MEDS: SODIUM CHLORIDE 0.9% 10 ML VIAL IRRIGATION SCH ×3 (01:00→16:58)
[2017-06-12] MEDS: MORPHINE SULFATE 15 MG TAB PO PRN (04:44)
[2017-06-12] MEDS: PIPERACIL-TAZO 2.25 GM PREMIX 50 ML IV SCH ×4 (04:45→20:51)
[2017-06-12 08:47] VITALS: BP 129/97; PULSE 86; RESP 16; TEMP 96.7; O2SAT 98
[2017-06-12] MEDS: ACETAMINOPHEN/HYDROcodone 325 MG/10 MG TAB PO PRN ×4 (09:01→20:52)
[2017-06-12] MEDS: TAMSULOSIN HCL 0.4 MG CAP PO SCH (09:02)
[2017-06-12] MEDS: ALLOPURINOL 300 MG TAB PO SCH (09:02)
[2017-06-12] MEDS: DICYCLOMINE HCL 20 MG TAB PO SCH ×4 (09:02→20:51)
[2017-06-12] MEDS: CALCIUM CARBONATE 1.25 GM (CA 500 MG) TAB PO SCH ×2 (09:02→20:51)
[2017-06-12] MEDS: LIDOCAINE HCL 5% PATCH T-DERMAL SCH (09:02)
[2017-06-12] MEDS: HEPARIN SODIUM - SQ 10,000 UNITS/ML VIAL SQ SCH ×2 (09:02→20:55)
[2017-06-12] MEDS: SODIUM CHLORIDE 0.9% FLUSH 10 ML FLUSH IV FLUSH SCH ×2 (09:03→19:48)
--- NOTE | 2017-06-12 11:28 | HHI.PR ---
Subjective Remarks Patient seen and evaluated in follow-up for possible hepatic abscesses versus hepatic mass with a known history of colon cancer. Patient feels well. Hemoglobin is improved. Patient is complaining of constipation today and some eye itchiness Very little output from hepatic drain Objective Vitals Vital Signs Date Time Temp Pulse Resp B/P (MAP) Pulse Ox O2 Delivery O2 Flow Rate FiO2 06/12/17 08:47 96.7 86 16 129/97 (108) 98 06/12/17 00:00 97.4 79 20 126/80 (95) 96 06/11/17 20:00 96.8 95 20 129/81 (97) 96 06/11/17 17:30 97.2 85 18 124/90 (101) 06/11/17 16:26 18 06/11/17 13:28 96.2 98 16 131/88 (102) I/O 06/11/17 06/11/17 06/11/17 06/12/17 06/12/17 06/12/17 07:00 15:00 23:00 07:00 15:00 23:00 Intake Total 120 ml 505 ml 640 ml 240 ml Output Total 350 ml 25 ml Balance -230 ml 505 ml 615 ml 240 ml Intake Oral 120 ml 300 ml 540 ml 240 ml IV Total 205 ml 100 ml Output Urine Total 300 ml Drainage Total 50 ml 25 ml # Voids 1 4 # Bowel Movements 0 Result Diagram: 06/11/17 0555 06/10/17 0550 Objective Remarks GENERAL: This is a well-nourished, well-developed patient, complaining of back pain CARDIOVASCULAR: Regular rate and rhythm without murmurs, gallops, or rubs. RESPIRATORY: Clear to auscultation. Breath sounds equal bilaterally. No wheezes , rales, or rhonchi. GASTROINTESTINAL: right liver rain, Abdomen soft, non-tender, nondistended. Normal active bowel sounds MUSCULOSKELETAL: Extremities without clubbing, cyanosis, or edema. NEURO: Alert & Oriented x4 to person, place, time, situation. Moves all ext x4 A/P Problem List: (1) Acute blood loss anemia ICD Code: D62 - Acute posthemorrhagic anemia Plan: Patient still with anemia and hemoglobin is 8.3 Status post 1 unit packed red blood cells Bleeding appears to be secondary to GI losses, Iron deficiency and Chronic illness Status post iron Path negative (2) GI bleed ICD Code: K92.2 - Gastrointestinal hemorrhage, unspecified Plan: Secondary to diverticular disease but also worrisome for masses which may be recurrent CA Hx of colon CA 20 years ago that was treated by chemotherapy and surgical resection Stable (3) Acute kidney injury ICD Code: N17.9 - Acute kidney failure, unspecified Status: Acute Plan: Resolved (4) Diverticulitis ICD Code: K57.92 - Diverticulitis of intestine, part unspecified, without perforation or abscess without bleeding Plan: resolved compared to previous CT (5) Chronic pain ICD Code: G89.29 - Other chronic pain Plan: continue home lidocaine patch and oxycodone Pain mgt per dr roblero as an outpatient (6) Liver abscess ICD Code: K75.0 - Abscess of liver Plan: s/p drainage by IR Cultures remain negative IV Zosyn Drain is working well and there is minimal output Liver path negative for malignancy (7) Hypocalcemia ICD Code: E83.51 - Hypocalcemia Plan: replace check mag Assessment and Plan Heparin every 12 Discharge Planning when drain removed likely dc home We will await for clearance from Carina Stewart MD Jun 12, 2017 11:28
[2017-06-12 12:00] VITALS: BP 154/95; PULSE 111; RESP 18; TEMP 96.4; O2SAT 94
[2017-06-12] MEDS: MAGNESIUM SULFATE 1 GM PREMIX 100 ML IV SCH ×2 (12:24→13:23)
--- NOTE | 2017-06-12 15:18 | HHI.GIFU ---
Subjective Remarks Patient is laying in bed seems to be comfortable less abdominal pain, biopsy came back without malignancy Objective Vitals I&O Vital Signs Date Time Temp Pulse Resp B/P (MAP) Pulse Ox O2 Delivery O2 Flow Rate FiO2 06/12/17 12:00 96.4 111 18 154/95 (114) 94 06/12/17 08:47 96.7 86 16 129/97 (108) 98 06/12/17 00:00 97.4 79 20 126/80 (95) 96 06/11/17 20:00 96.8 95 20 129/81 (97) 96 06/11/17 17:30 97.2 85 18 124/90 (101) 06/11/17 16:26 18 I/O 06/11/17 06/11/17 06/11/17 06/12/17 06/12/17 06/12/17 07:00 15:00 23:00 07:00 15:00 23:00 Intake Total 120 ml 505 ml 640 ml 240 ml Output Total 350 ml 25 ml Balance -230 ml 505 ml 615 ml 240 ml Intake Oral 120 ml 300 ml 540 ml 240 ml IV Total 205 ml 100 ml Output Urine Total 300 ml Drainage Total 50 ml 25 ml # Voids 1 4 1 # Bowel Movements 0 Laboratory Date/Time Source Procedure Growth Status 06/05/17 15:13 Blood Peripheral Aerobic Blood Culture - Final NO GROWTH IN 5 DAYS Complete 06/05/17 15:13 Blood Peripheral Anaerobic Blood Culture - Final NO GROWTH IN 5 DAYS Complete 06/09/17 15:50 Fluid Other Gram Stain - Final Complete 06/09/17 15:50 Fluid Other Body Fluid Culture - Final NO GROWTH IN 72 HRS.--AEROBICALLY OR ... Complete Physical Exam HEENT: Pupils round and reactive to light; normocephalic; atraumatic; Obese NECK: Neck is supple, large CHEST: Chest is clear without audible rhonchi or wheezing CARDIAC: Regular rate and rhythm ABDOMEN: Obese, large,taut, no distention with some mild bloating, minimal mid abdominal tenderness; bowel sounds are present in all four quadrants. EXTREMITIES: Mild lower extremity edema. SKIN: Normal; no rash; no jaundice. 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 Assessment and Plan Plan Patient was seen and examined, biopsy came back negative for malignancy Antibiotics per infectious disease We will follow up as needed thank you for the consult Ayan David MD Jun 12, 2017 15:18
--- NOTE | 2017-06-12 15:24 | HHI.NPPN ---
Subjective General Problems: Anemia, Hypertension Renal Failure: Chronic, Acute History of Present Illness 56-year-old male who was admitted yesterday with complaints of weakness and shortness of breath with ongoing diarrhea. The patient has a previous history of colon cancer, which was apparently treated in the past and apparently had a negative colonoscopy several years ago. The patient on this admission presented with anemia and was found to have a liver mass suspicious for colon mets with a possible new finding of colon mass as well. He has been seen with oncology and the plan is for a possible liver biopsy. In addition, the patient has been seen with gastroenterology patient had chronic kidney disease and creatinine that ranged from 2.2 to 1.7 in 04/2017. Additional Remarks Patient is alert, abd. pain is better, no SOB, started eating better. Objective Data Data 06/12/17 06/13/17 19:00 07:00 # Voids 1 Vital Signs Date Time Temp Pulse Resp B/P (MAP) Pulse Ox O2 Delivery O2 Flow Rate FiO2 06/12/17 12:00 96.4 111 18 154/95 (114) 94 06/12/17 08:47 96.7 86 16 129/97 (108) 98 06/12/17 00:00 97.4 79 20 126/80 (95) 96 06/11/17 20:00 96.8 95 20 129/81 (97) 96 06/11/17 17:30 97.2 85 18 124/90 (101) 06/11/17 16:26 18 -: 06/11/17 0555 06/10/17 0550 Physical Exam General Appearance: Well Developed, Well Nourished, No Acute Distress Throat Throat Exam: Oral Mucosa Hazel & Moist Neck Neck Exam: Neck Supple Pulmonary Resp Exam: Clear Bilaterally Cardiology CV Exam: Regular, Normal Sinus Rhythm Gastrointestinal/Abdomen GI Exam: Soft, Non-Tender, Bowel Sounds Present Integumentary Skin Exam: Warm, Dry, Intact Extremeties Extremities Exam: No Edema Neurologic Neuro Exam: Alert, Awake, Oriented, Speech Clear Assessment/Plan Problem List: (1) OMAR (acute kidney injury) ICD Codes: N17.9 - Acute kidney injury Status: Acute Plan: Patient has chronic kidney disease, and has Acute kidney injury. Now admitted with loose BM and anemia. Creatinine was higher than his baseline. Possibly has an element of pre renal. Continue IVF. Has been non oliguric, Creatinine continue to improve. Continue IVF. Post liver abscess drain placement. Urine out put is adequate. Avoid Nephrotoxins. No new BMP. (2) Metastatic colon cancer to liver ICD Codes: C18.9 - Malignant neoplasm of colon, unspecified; C78.7 - Secondary malignant neoplasm of liver and intrahepatic bile duct Status: Acute Plan: 2. Colon cancer. The patient has a history of colon cancer, which was apparently treated in the past. Patient has apparent liver metastasis with a possible colon mass as well. The patient is being seen with oncology. Continue followup for workup and diagnosis. (3) GI bleed ICD Codes: K92.2 - Gastrointestinal hemorrhage, unspecified Plan: Continue transfusions as needed. Plans is for possible colonoscopy on Thursday. Continue to monitor and follow up with gastroenterology. (4) HTN (hypertension) ICD Codes: I10 - HTN (hypertension) Status: Chronic Plan: Blood pressure is stable at this point. Continue to monitor. Of note, the patient had been on LIBORIO inhibitor at home. Hold LIBORIO inhibitor at this point, given acute renal failure. Liver Biopsy results noted. Check BMP in AM. (5) CKD (chronic kidney disease), stage III ICD Codes: N18.3 - Chronic kidney disease, stage 3 (moderate) Status: Acute Yuly Cowart MD Jun 12, 2017 15:24
[2017-06-12] MEDS ORDERED: HYPROMELLOSE 0.3 % OPTH GEL 10 GM (0.34 FL OZ) TUBE EACH EYE PRN (16:00)
[2017-06-12] MEDS: ONDANSETRON HCL 4 MG/2 ML VIAL IVP PRN (17:08)
[2017-06-12] MEDS ORDERED: BISACODYL EC 5 MG TABEC PO ONE (17:15)
[2017-06-12 18:00] VITALS: BP 118/80; PULSE 78; RESP 18; TEMP 96.9; O2SAT 98
[2017-06-12 20:00] VITALS: BP 124/79; PULSE 88; RESP 20; TEMP 97.5; O2SAT 97
--- NOTE | 2017-06-12 20:13 | HHI.IDPN ---
Subjective Subjective Remarks path cw abscess, no malignancy c/o RUQ mild pain + stooling, taking po no fever Antibiotics zosyn Allergies: Coded Allergies: shellfish derived (Unverified Allergy, Severe, EDEMA, HIVES, 06/05/17) Objective . Vital Signs Date Time Temp Pulse Resp B/P (MAP) Pulse Ox O2 Delivery O2 Flow Rate FiO2 06/12/17 18:00 96.9 78 18 118/80 (93) 98 06/12/17 12:00 96.4 111 18 154/95 (114) 94 06/12/17 08:47 96.7 86 16 129/97 (108) 98 06/12/17 00:00 97.4 79 20 126/80 (95) 96 06/11/17 20:00 96.8 95 20 129/81 (97) 96 06/12/17 06/12/17 06/13/17 15:00 23:00 07:00 Intake Total 150 ml Output Total 10 ml Balance 140 ml IV Total 150 ml Drainage Total 10 ml # Voids 1 . Laboratory Tests Test 06/11/17 05:55 White Blood Count 6.8 TH/MM3 Red Blood Count 2.86 MIL/MM3 Hemoglobin 8.3 GM/DL Hematocrit 27.3 % Mean Corpuscular Volume 95.3 FL Mean Corpuscular Hemoglobin 29.1 PG Mean Corpuscular Hemoglobin Concent 30.5 % Red Cell Distribution Width 15.6 % Platelet Count 525 TH/MM3 Mean Platelet Volume 6.5 FL Neutrophils (%) (Auto) 69.5 % Lymphocytes (%) (Auto) 17.9 % Monocytes (%) (Auto) 9.2 % Eosinophils (%) (Auto) 3.0 % Basophils (%) (Auto) 0.4 % Neutrophils # (Auto) 4.8 TH/MM3 Lymphocytes # (Auto) 1.2 TH/MM3 Monocytes # (Auto) 0.6 TH/MM3 Eosinophils # (Auto) 0.2 TH/MM3 Basophils # (Auto) 0.0 TH/MM3 CBC Comment DIFF FINAL Differential Comment Laboratory Tests Test 06/11/17 14:11 Magnesium Level 1.1 MG/DL Imaging Last Impressions Liver Biopsy CT 06/09/17 0000 Signed Impressions: Service Date/Time: Friday, June 09, 2017 15:26 - CONCLUSION: Uncomplicated CT guided biopsy. Gary Tinsley MD Abscess Drainage CT 06/09/17 0000 Signed Impressions: Service Date/Time: Friday, June 09, 2017 15:26 - CONCLUSION: Uncomplicated CT guided drainage, as above. Gary Tinsley MD Renal Ultrasound 06/06/17 0000 Signed Impressions: Service Date/Time: Tuesday, June 06, 2017 13:20 - CONCLUSION: The renal cortex is mildly thinned bilaterally and slightly increased in echogenicity. There is a single benign cysts identified in the right kidney. No evidence of hydronephrosis. Rhonda Cr MD Chest X-Ray 06/05/17 1457 Signed Impressions: Service Date/Time: Monday, June 05, 2017 15:23 - CONCLUSION: 1. No acute cardiopulmonary disease. Gary Tinsley MD Abdomen/Pelvis CT 06/05/17 1457 Signed Impressions: Service Date/Time: Monday, June 05, 2017 15:40 - CONCLUSION: 1. 8.8 cm liver mass suspicious for metastatic disease or primary hepatic tumor. 2. Focal mural thickening distal sigmoid colon suspicious for malignancy. 3. Mural thickening in the mid left colon with surrounding inflammatory changes probably diverticulitis but cannot exclude mass. Overall mural thickening on the left side appears slightly improved from May 20. Luther Slaughter MD Physical Exam CONSTITUTIONAL/GENERAL: This is an obese patient, in no apparent distress. TUBES/LINES/DRAINS: SKIN: No jaundice, rashes, or lesions. Skin temperature appropriate. Not diaphoretic. CARDIOVASCULAR: Regular rate and rhythm without murmurs, gallops, or rubs. No JVD. Peripheral pulses symmetric. RESPIRATORY/CHEST: Symmetric, unlabored respirations. Clear to auscultation. Breath sounds equal bilaterally. No wheezes, rales, or rhonchi. GASTROINTESTINAL: Abdomen soft, RUQ with mild tenderness, obese + distended. No hepato-splenomegaly, or palpable masses. No guarding. Bowel sounds present. Drain in place RUQ GENITOURINARY: Without palpable bladder distension. MUSCULOSKELETAL: Extremities without clubbing, cyanosis, or edema. No joint tenderness or effusion noted. No calf tenderness. No mottling or clubbing. NEUROLOGICAL: Awake and alert. Motor and sensory grossly within normal limits. Follows commands. Clear speech . Moves all extremities. PSYCHIATRIC: No obvious anxiety/depression. no apparent hallucinations or other psychotic thought process. Assessment & Plan Remarks Liver abscess sp drainage clx negative Diverticulitis Remote colon ca, no malignancy on path cont zosyn, will re- image next week Once ready for dc will switch him to Amoxicillin/ clavunate or Levaquine+ Flagyl Anticipated duration 4- 6 weeks Mariaelena Ibrahim MD Jun 12, 2017 20:13
[2017-06-12] MEDS: DOCUSATE SODIUM 100 MG CAP PO SCH (20:51)
[2017-06-13] VITALS: BP 131/91; PULSE 87; RESP 18; TEMP 97.5; O2SAT 97
[2017-06-13] MEDS: SODIUM CHLORIDE 0.9% 10 ML VIAL IRRIGATION SCH ×4 (01:00→23:31)
[2017-06-13] MEDS: SODIUM CHLORIDE 0.9% FLUSH 10 ML FLUSH IV FLUSH SCH ×2 (01:51→20:37)
[2017-06-13] MEDS: PIPERACIL-TAZO 2.25 GM PREMIX 50 ML IV SCH ×2 (01:51→09:14)
[2017-06-13] MEDS: ACETAMINOPHEN/HYDROcodone 325 MG/10 MG TAB PO PRN ×5 (01:52→21:14)
[2017-06-13] MEDS: LORazepam 1 MG TAB PO PRN ×2 (05:53→21:14)
[2017-06-13 07:42] LABS: CHLORIDE 105 MEQ/L (98-107); SODIUM (NA) 141 MEQ/L (136-145)
[2017-06-13 07:46] LABS: AUTOMATED NEUTROPHIL # 6.6 TH/MM3 (1.8-7.7); BASOPHIL % 0.4 % (0.0-2.0); EOSINOPHIL # 0.3 TH/MM3 (0-0.4); HEMATOCRIT 26.6 % (39.0-51.0); LYMPH % 13.8 % (9.0-44.0); LYMPHOCYTE # 1.2 TH/MM3 (1.0-4.8); MEAN CELL VOLUME 95.4 FL (80.0-100.0); MEAN CORPUSCULAR HEMOGLOBIN 32.2 PG (27.0-34.0); MEAN CORPUSCULAR HGB CONC 33.8 % (32.0-36.0); MEAN PLATELET VOLUME 6.2 FL (7.0-11.0); MONO % 7.8 % (0.0-8.0); MONOCYTE # 0.7 TH/MM3 (0-0.9); PLATELET COUNT 438 TH/MM3 (150-450); RED BLOOD COUNT 2.79 MIL/MM3 (4.50-5.90); WHITE BLOOD COUNT 8.8 TH/MM3 (4.0-11.0)
[2017-06-13 08:00] VITALS: BP 120/86; PULSE 77; RESP 18; TEMP 97.2; O2SAT 98
[2017-06-13 08:04] LABS: BICARBONATE 29.4 MEQ/L (21.0-32.0); BLOOD UREA NITROGEN 8 MG/DL (7-18); CALCIUM 8.2 MG/DL (8.5-10.1); GLOMERULAR FILTRATION RATE 34 ML/MIN (>89); GLUCOSE,RANDOM 79 MG/DL (74-106); MAGNESIUM 1.5 MG/DL (1.5-2.5)
[2017-06-13] MEDS: ALLOPURINOL 300 MG TAB PO SCH (09:14)
[2017-06-13] MEDS: DOCUSATE SODIUM 100 MG CAP PO SCH ×2 (09:14→21:14)
[2017-06-13] MEDS: TAMSULOSIN HCL 0.4 MG CAP PO SCH (09:14)
[2017-06-13] MEDS: CALCIUM CARBONATE 1.25 GM (CA 500 MG) TAB PO SCH ×2 (09:14→21:14)
[2017-06-13] MEDS: DICYCLOMINE HCL 20 MG TAB PO SCH ×4 (09:14→21:14)
[2017-06-13] MEDS: HEPARIN SODIUM - SQ 10,000 UNITS/ML VIAL SQ SCH ×2 (09:15→21:15)
[2017-06-13] MEDS: POLYETHYLENE GLYCOL 17 GM PKG PO SCH (09:15)
[2017-06-13] MEDS: LIDOCAINE HCL 5% PATCH T-DERMAL SCH (09:20)
[2017-06-13] MEDS ORDERED: LACTULOSE SYRUP 20 GM/30 ML CUP PO ONE (10:30)
[2017-06-13 11:39] LABS: % SATURATION IRON PROFILE 23.4 % (20-50); IRON (FE) 36 MCG/DL (65-175); TOTAL IRON BINDING CAPACITY 154 MCG/DL (250-450)
--- NOTE | 2017-06-13 11:47 | HHI.PR ---
Subjective Remarks Patient seen and evaluated today in follow-up for abdominal discomfort after hepatic drain placed. There is less output from the biliary drain. Patient reports increased constipation symptoms. He does have quite a bit of flatus Care plan discussed with interventional radiology who recommends at the drain likely be discontinued if less than 10 mL in the 24 hour. However he also recommended a repeat CT abdomen and pelvis which we will do. This was discussed with the patient Objective Vitals Vital Signs Date Time Temp Pulse Resp B/P (MAP) Pulse Ox O2 Delivery O2 Flow Rate FiO2 06/13/17 11:23 18 06/13/17 08:00 97.2 77 18 120/86 (97) 98 06/13/17 00:00 97.5 87 18 131/91 (104) 97 06/12/17 20:00 97.5 88 20 124/79 (94) 97 06/12/17 18:00 96.9 78 18 118/80 (93) 98 06/12/17 12:00 96.4 111 18 154/95 (114) 94 I/O 06/12/17 06/12/17 06/12/17 06/13/17 06/13/17 06/13/17 07:00 15:00 23:00 07:00 15:00 23:00 Intake Total 240 ml 150 ml 960 ml 50 ml Output Total 10 ml Balance 240 ml 140 ml 960 ml 50 ml Intake Oral 240 ml 960 ml IV Total 150 ml 50 ml Drainage Total 10 ml # Voids 4 1 2 # Bowel Movements 0 Result Diagram: 06/13/17 0720 06/13/17 0720 Objective Remarks GENERAL: This is a well-nourished, well-developed patient, complaining of back pain CARDIOVASCULAR: Regular rate and rhythm without murmurs, gallops, or rubs. RESPIRATORY: Clear to auscultation. Breath sounds equal bilaterally. No wheezes , rales, or rhonchi. GASTROINTESTINAL: right liver rain, Abdomen soft, non-tender, mildly distended. Hyperactive bowel sounds MUSCULOSKELETAL: Extremities without clubbing, cyanosis, or edema. NEURO: Alert & Oriented x4 to person, place, time, situation. Moves all ext x4 A/P Problem List: (1) Acute blood loss anemia ICD Code: D62 - Acute posthemorrhagic anemia Plan: Resolved (2) GI bleed ICD Code: K92.2 - Gastrointestinal hemorrhage, unspecified Plan: Resolved (3) Acute kidney injury ICD Code: N17.9 - Acute kidney failure, unspecified Status: Acute Plan: Resolved (4) Diverticulitis ICD Code: K57.92 - Diverticulitis of intestine, part unspecified, without perforation or abscess without bleeding Plan: resolved compared to previous CT (5) Chronic pain ICD Code: G89.29 - Other chronic pain Plan: continue home lidocaine patch and oxycodone Pain mgt per dr roblero as an outpatient (6) Liver abscess ICD Code: K75.0 - Abscess of liver Plan: s/p drainage by IR Follow-up of antibiotics, repeat CT abdomen and pelvis and likely remove drain if output continues to decrease Drain is working well and there is minimal output Liver path negative for malignancy (7) Hypocalcemia ICD Code: E83.51 - Hypocalcemia Plan: Resolved Hypomagnesemia resolved Assessment and Plan Heparin every 12 Discharge Planning Likely discharge home when drain Carina Teixiera MD Jun 13, 2017 11:47
[2017-06-13 12:00] VITALS: BP 128/87; PULSE 87; RESP 18; TEMP 96.6; O2SAT 97
--- NOTE | 2017-06-13 13:11 | RADRPT ---
EXAM DATE/TIME: 06/13/2017 12:19 [facility] COMPARISON: CT ABDOMEN & PELVIS W CONTRAST, May 20, 2017, 13:39. CT ABDOMEN & PELVIS W/O CONTRAST, May, 15:40. INDICATIONS : Increased abdominal pain post hepatic drain placement, constipation. ORAL CONTRAST: No oral contrast ingested. RADIATION DOSE: 24.43 CTDIvol (mGy) MEDICAL HISTORY : Cerebrovascular disease. Cardiovascular disease Hypertension.Diabetes, GERD,Sciatica, ca colon SURGICAL HISTORY : Colon resection. orthopedic ENCOUNTER: Initial ACUITY: 1 day PAIN SCALE: 8/10 LOCATION: mid abdomen near belly button. TECHNIQUE: Volumetric scanning of the abdomen and pelvis was performed. Using automated exposure control and ad justment of the mA and/or kV according to patient size, radiation dose was kept as low as reasonably achievable to obtain optimal diagnostic quality images. DICOM format image data is available electro nically for review and comparison. FINDINGS: LOWER LUNGS: The visualized lower lungs are clear. Mild posterior pleural thickening is noted bilaterally. LIVER: There is a persistent area of decreased attenuation involving the right lobe of the liver measuring 8 .9 cm in size which remains indeterminate. There is no dilation of the biliary tree. No calcified ga llstones. SPLEEN: Normal size without lesion. PANCREAS: Within normal limits. KIDNEYS: Normal in size and shape. Multiple right renal cysts are noted. There is no solid mass, stone, or hy dronephrosis. ADRENAL GLANDS: Within normal limits. VASCULAR: There is no aortic aneurysm. BOWEL/MESENTERY: There is a persistent area of focal wall thickening and pericolic inflammatory changes involving the sigmoid colon consistent with possible acute diverticulitis or mass with microperforation. Colonoscop y may be helpful to rule out subtle underlying mass if clinically indicated. There has been slight in terval improvement of the pericolic inflammatory changes involving the descending colon. A right side d pigtail drain is noted alongside the right lobe of the liver. ABDOMINAL WALL: Within normal limits. RETROPERITONEUM: There is no lymphadenopathy. BLADDER: No wall thickening or mass. REPRODUCTIVE: Within normal limits. INGUINAL: There is no lymphadenopathy or hernia. MUSCULOSKELETAL: Severe arthritic changes are noted involving the right hip joint with possible avascular necrosis. CONCLUSION: 1. Persistent focal thickening and pericolic inflammatory changes involving the sigmoid colon suggest snow of acute diverticulitis or possible mass with microperforation. Colonoscopy may be helpful to rul e out subtle mass if clinically indicated. 2. Slight interval improvement of the pericolic inflammatory changes involving the descending colon. 3. Persistent 8.9 cm low density mass-like lesion within the right lobe of the liver which is indeter minate. 4. Stable right renal cysts. 5. Minimal posterior pleural thickening bilaterally. 6. 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 Ziggy Gutierrez MD on June 13, 2017 at 12:59 Board Certified Radiologist. This report was verified electronically.
[2017-06-13] MEDS: ONDANSETRON HCL 4 MG/2 ML VIAL IVP PRN ×2 (15:21→21:28)
[2017-06-13 16:00] VITALS: BP 120/89; PULSE 88; RESP 18; TEMP 96.9; O2SAT 98
--- NOTE | 2017-06-13 17:26 | PD.CONS ---
HPI Service General surgery Consult Requested By Dr. Carina Teixeira Reason for Consult Diverticulitis and liver abscess Primary Care Physician Gretchen Parr MD History of Present Illness Patient is a unfortunate 56-year-old gentleman with a remote history of colon cancer and colon resection at [facility] about 20 years ago who over the last 5-6 weeks has not felt well. He was in the hospital several weeks ago with infection and abnormality in the liver and influenza and was treated with antibiotics and sent home. He had increasing symptoms of abdominal discomfort and nausea vomiting weakness malaise and return to the ER. CT scan demonstrated a liver abnormality in 2 areas of the colon which appeared abnormal question inflammation versus new or recurrent cancer. He was admitted to the hospital for evaluation. He was seen by medical oncology gastroenterology and interventional radiology. Colonoscopy did not demonstrate any atypical cells or findings suggestive of cancer. A tubular adenoma and some inflammatory changes were noted. CT-guided drainage demonstrated findings consistent with inflammatory change and abscess in the liver. Recommendations have been made by infectious disease to treat the patient for 4-6 weeks with antibiotics. Patient feels better since his admission but just had some dry heaves. He has anxiety associated with the potential diagnosis of cancer. A repeat CT scan today demonstrates the drain placed into the liver abscess is no longer in the liver and just in the perihepatic space. I discussed this with Dr. Max Carrero who plans to have the patient evaluated with an ultrasound and potential repositioning of the liver abscess drain. Review of Systems Constitutional: COMPLAINS OF: Fatigue, Weight loss, Night Sweats Eyes: COMPLAINS OF: Eye inflammation Gastrointestinal: COMPLAINS OF: Abdominal pain, Nausea, Vomiting Psychiatric: COMPLAINS OF: Anxiety Past Family Social History Past Medical History Gout for which she occasionally takes prednisone Chronic kidney disease mild Colon cancer status post right colon resection 20 years ago History of left hip replacement by Dr. Raza Past Surgical History Colon resection Left hip replacement Left chest tube for posttraumatic pneumothorax Reported Medications Please see chart Allergies: Coded Allergies: shellfish derived (Unverified Allergy, Severe, EDEMA, HIVES, 06/05/17) Active Ordered Medications Current Medications Medications (Trade) Dose Ordered Sig/Wes Route Start Time Stop Time Status Last Admin (NS Flush) 2 ml UNSCH PRN IV FLUSH 06/05/17 18:15 06/10/17 17:23 (NS Flush) 2 ml BID IV FLUSH 06/05/17 21:00 06/13/17 01:51 (Zofran Inj) 4 mg Q6H PRN IVP 06/05/17 18:15 06/13/17 15:21 (Narcan Inj) 0.4 mg UNSCH PRN IV PUSH 06/05/17 18:15 (Ativan) 1 mg Q8H PRN PO 06/05/17 19:00 06/13/17 05:53 (Bentyl) 20 mg QID PO 06/06/17 13:00 06/13/17 12:59 (Flomax) 0.4 mg DAILY PO 06/07/17 10:00 06/13/17 09:14 (Turney 10-325 Mg) 1 tab Q4H PRN PO 06/08/17 12:45 06/13/17 15:17 (Lidoderm 5% Patch.12 Hr) 1 patch DAILY T-DERMAL 06/08/17 13:00 06/13/17 09:20 (NS Inj) 10 ml Q8H IRRIGATION 06/09/17 17:00 06/13/17 09:00 (Zyloprim) 300 mg DAILY PO 06/09/17 18:47 06/13/17 09:14 (Heparin Inj) 5,000 units Q12HR SQ 06/11/17 21:00 06/13/17 09:15 (Oscal) 500 mg Q12HR PO 06/11/17 14:00 06/13/17 09:14 (Genteal Severe Dry Eye Relief 0.3% Opth Gel) 2 drop Q6H PRN EACH EYE 06/12/17 16:00 06/12/17 16:58 (Miralax) 17 gm DAILY PO 06/13/17 09:00 06/13/17 09:15 (Colace) 100 mg BID PO 06/12/17 21:00 06/13/17 09:14 Piperacillin Sod/ Tazobactam Sod 100 ml @ 200 mls/hr Q8H IV 06/13/17 18:00 Family History Noncontributory Social History Noncontributory Physical Exam Vital Signs Vital Signs Date Time Temp Pulse Resp B/P (MAP) Pulse Ox O2 Delivery O2 Flow Rate FiO2 06/13/17 16:00 96.9 88 18 120/89 (99) 98 06/13/17 12:00 96.6 87 18 128/87 (101) 97 06/13/17 11:23 18 06/13/17 08:00 97.2 77 18 120/86 (97) 98 06/13/17 00:00 97.5 87 18 131/91 (104) 97 06/12/17 20:00 97.5 88 20 124/79 (94) 97 06/12/17 18:00 96.9 78 18 118/80 (93) 98 Physical Exam He is a mildly disheveled pleasant cooperative male in no acute distress. He has mild anxiety about his health situation. HEENT is normocephalic atraumatic his pupils are 2 and sluggishly reactive to light they are round. His oropharynx demonstrates some missing teeth. He has no oral mucosal lesions. He does have some mild erythema in the left eye says he just wiped out some yellowish drainage from the left eye. His neck is supple without adenopathy. He is bearded. He is no obvious carotid bruits jugular venous distention or thyromegaly. There is no palpable cervical or supraclavicular adenopathy. His trachea is midline. Is equal bilateral breath sounds his heart sounds are regular without obvious murmur rub or gallop his abdomen is large and protuberant. He has a drain exiting the right upper quadrant that has only yellow serous fluid in the accordion portion of the drain. He has a obliquely oriented right sided scar without evidence of incisional hernia. There is a small reducible umbilical hernia. He has normal bowel sounds without abdominal bruits. He has no palpable abdominal tenderness to palpation or percussion today external genitalia and rectal exams were not repeated. His extremities show no cyanosis clubbing or edema he has equal radial and dorsalis pedis pulses. Neurologically he is awake alert and oriented he has equal bilateral tan room supervisor strength and no gross motor or sensory deficit. Laboratory Laboratory Tests Test 06/13/17 07:20 White Blood Count 8.8 Red Blood Count 2.79 Hemoglobin 9.0 Hematocrit 26.6 Mean Corpuscular Volume 95.4 Mean Corpuscular Hemoglobin 32.2 Mean Corpuscular Hemoglobin Concent 33.8 Red Cell Distribution Width 16.0 Platelet Count 438 Mean Platelet Volume 6.2 Neutrophils (%) (Auto) 75.0 Lymphocytes (%) (Auto) 13.8 Monocytes (%) (Auto) 7.8 Eosinophils (%) (Auto) 3.0 Basophils (%) (Auto) 0.4 Neutrophils # (Auto) 6.6 Lymphocytes # (Auto) 1.2 Monocytes # (Auto) 0.7 Eosinophils # (Auto) 0.3 Basophils # (Auto) 0.0 CBC Comment DIFF FINAL Differential Comment Blood Urea Nitrogen 8 Creatinine 2.00 Random Glucose 79 Calcium Level 8.2 Magnesium Level 1.5 Sodium Level 141 Potassium Level 4.2 Chloride Level 105 Carbon Dioxide Level 29.4 Anion Gap 7 Estimat Glomerular Filtration Rate 34 Iron Level 36 Total Iron Binding Capacity 154 Percent Iron Saturation 23.4 Date/Time Source Procedure Growth Status 06/05/17 15:13 Blood Peripheral Aerobic Blood Culture - Final NO GROWTH IN 5 DAYS Complete 06/05/17 15:13 Blood Peripheral Anaerobic Blood Culture - Final NO GROWTH IN 5 DAYS Complete 06/09/17 15:50 Fluid Other Gram Stain - Final Complete 06/09/17 15:50 Fluid Other Body Fluid Culture - Final NO GROWTH IN 72 HRS.--AEROBICALLY OR ... Complete Result Diagram: 06/13/17 0720 06/13/[address] scans reviewed which shows 2 areas of the sigmoid colon with mild inflammatory changes. There is an abnormal density in the liver adjacent to the gallbladder fossa which has been biopsied and drained. The drain is presently no longer within the area of concern it is in the perihepatic space. Course Please see HPI. Assessment and Plan Assessment and Plan Unfortunate 56-year-old gentleman with previous history of colon cancer and colon resection 20 years ago who presents with 2 areas of inflammatory change in the sigmoid colon and an abnormal area in the liver consistent with liver abscess. The patient is presently being treated with antibiotics and drainage although the drain appears to have fallen out of the area of concern in the liver. There is no acute surgical indication for this patient. I discussed with Dr. Carrero evaluation of the liver with possible replacement of the drain into the liver. I discussed with the patient ideal therapy being drainage antibiotics and time. Colonoscopy and biopsy of the liver did not demonstrate any atypical cells or findings suspicious for colon cancer. From a surgical service standpoint this patient can be followed peripherally. Thank you for the opportunity to meet this pleasant gentleman. Discussed Condition With The patient and Joshua Burroughs MD Jun 13, 2017 17:26
--- NOTE | 2017-06-13 20:27 | RADRPT ---
EXAM DATE/TIME: 06/13/2017 18:26 [facility] COMPARISON: No previous studies available for comparison. INDICATIONS : Abscess. MEDICAL HISTORY : Stroke. Hypertension. Carcinoma, colon. Tinnitus. Asthma. GOUT. Arthritis. Anxiety. SURGICAL HISTORY : Tonsillectomy. Left cataract surgery. Colon resection. Left foot screws and pins. ENCOUNTER: Initial ACUITY: 1 day PAIN SCORE: 5/10 LOCATION: Bilateral upper quadrant MEASUREMENTS: LIVER: 20.7 cm length COMMON DUCT: 6 mm RIGHT KIDNEY: 9.4 x 5.5 x 5.8 cm SPLEEN: 12.5 cm length FINDINGS: There is no residual abscess remaining in the right lobe of the liver to replace the existing drain w ithin. Existing drain will be removed. Followup CT scan with contrast would be helpful if the patient is not clinically progressing. CONCLUSION: No residual abscess, existing catheter will be removed. James Carrero MD FACR on June 13, 2017 at 20:19 Board Certified Radiologist. This report was verified electronically.
--- NOTE | 2017-06-13 20:49 | HHI.NPPN ---
Subjective General Problems: Anemia, Hypertension Renal Failure: Chronic, Acute History of Present Illness 56-year-old male who was admitted yesterday with complaints of weakness and shortness of breath with ongoing diarrhea. The patient has a previous history of colon cancer, which was apparently treated in the past and apparently had a negative colonoscopy several years ago. The patient on this admission presented with anemia and was found to have a liver mass suspicious for colon mets with a possible new finding of colon mass as well. He has been seen with oncology and the plan is for a possible liver biopsy. In addition, the patient has been seen with gastroenterology patient had chronic kidney disease and creatinine that ranged from 2.2 to 1.7 in 04/2017. Additional Remarks Patient is alert, abd. pain is better, no SOB, started eating better. Objective Data Data 06/13/17 06/14/17 19:00 07:00 Intake Total 650 ml Output Total 25 ml Balance 625 ml Intake Oral 600 ml IV Total 50 ml Drainage Total 25 ml # Voids 3 Vital Signs Date Time Temp Pulse Resp B/P (MAP) Pulse Ox O2 Delivery O2 Flow Rate FiO2 06/13/17 16:00 96.9 88 18 120/89 (99) 98 06/13/17 12:00 96.6 87 18 128/87 (101) 97 06/13/17 11:23 18 06/13/17 08:00 97.2 77 18 120/86 (97) 98 06/13/17 00:00 97.5 87 18 131/91 (104) 97 -: 06/13/17 0720 06/13/17 0720 Physical Exam General Appearance: Well Developed, Well Nourished, No Acute Distress Throat Throat Exam: Oral Mucosa [place] & Moist Neck Neck Exam: Neck Supple Pulmonary Resp Exam: Clear Bilaterally Cardiology CV Exam: Regular, Normal Sinus Rhythm Gastrointestinal/Abdomen GI Exam: Soft, Non-Tender, Bowel Sounds Present Integumentary Skin Exam: Warm, Dry, Intact Extremeties Extremities Exam: No Edema Neurologic Neuro Exam: Alert, Awake, Oriented, Speech Clear Assessment/Plan Problem List: (1) OMAR (acute kidney injury) ICD Codes: N17.9 - Acute kidney injury Status: Acute Plan: Patient has chronic kidney disease, and has Acute kidney injury. Now admitted with loose BM and anemia. Creatinine was higher than his baseline. Possibly has an element of pre renal. Continue IVF. Has been non oliguric, Creatinine continue to improve. Continue IVF. Post liver abscess drain placement. Urine out put is adequate. Avoid Nephrotoxins. Cr [address] Cowart to follow on Thursday (2) Metastatic colon cancer to liver ICD Codes: C18.9 - Malignant neoplasm of colon, unspecified; C78.7 - Secondary malignant neoplasm of liver and intrahepatic bile duct Status: Acute Plan: 2. Colon cancer. The patient has a history of colon cancer, which was apparently treated in the past. Patient has apparent liver metastasis with a possible colon mass as well. The patient is being seen with oncology. Continue followup for workup and diagnosis. (3) GI bleed ICD Codes: K92.2 - Gastrointestinal hemorrhage, unspecified Plan: Continue transfusions as needed. Plans is for possible colonoscopy on Thursday. Continue to monitor and follow up with gastroenterology. (4) HTN (hypertension) ICD Codes: I10 - HTN (hypertension) Status: Chronic Plan: Blood pressure is stable at this point. Continue to monitor. Of note, the patient had been on LIBORIO inhibitor at home. Hold LIBORIO inhibitor at this point, given acute renal failure. Liver Biopsy results noted. Check BMP in AM. (5) CKD (chronic kidney disease), stage III ICD Codes: N18.3 - Chronic kidney disease, stage 3 (moderate) Status: Acute Wolfgang Houston MD Jun 13, 2017 20:49
[2017-06-13] MEDS: PIPERACIL-TAZO 4.5 GM PREMIX 100 ML IV SCH ×2 (21:15→23:35)
[2017-06-13 21:59] VITALS: BP 137/82; PULSE 101; RESP 18; TEMP 97.8; O2SAT 97
[2017-06-14 00:41] VITALS: BP 128/80; PULSE 102; RESP 18; TEMP 97.9; O2SAT 94
[2017-06-14] MEDS: ONDANSETRON HCL 4 MG/2 ML VIAL IVP PRN ×3 (03:23→17:31)
[2017-06-14] MEDS: ACETAMINOPHEN/HYDROcodone 325 MG/10 MG TAB PO PRN ×4 (03:25→22:00)
--- NOTE | 2017-06-14 07:57 | HHI.PR ---
Subjective Subjective Notes Feels better this morning. Had 4 bowel movements. Abdomen feels less distended and less tender. Had ultrasound of his abdomen yesterday which showed no residual fluid collection within his liver to replace his drain in. His drain was supposed to be removed by radiology yesterday after the ultrasound was completed but it had not been. Objective Vitals/I&O Vital Signs Date Time Temp Pulse Resp B/P (MAP) Pulse Ox O2 Delivery O2 Flow Rate FiO2 06/14/17 04:14 06/14/17 00:41 97.9 102 18 94 Labs Date/Time Source Procedure Growth Status 06/05/17 15:13 Blood Peripheral Aerobic Blood Culture - Final NO GROWTH IN 5 DAYS Complete 06/05/17 15:13 Blood Peripheral Anaerobic Blood Culture - Final NO GROWTH IN 5 DAYS Complete 06/09/17 15:50 Fluid Other Gram Stain - Final Complete 06/09/17 15:50 Fluid Other Body Fluid Culture - Final NO GROWTH IN 72 HRS.--AEROBICALLY OR ... Complete Radiology CT scans reviewed which shows 2 areas of the sigmoid colon with mild inflammatory changes. There is an abnormal density in the liver adjacent to the gallbladder fossa which has been biopsied and drained. The drain is presently no longer within the area of concern it is in the perihepatic space. Abdomen: Non-distended, Non-tender, Other (Large protuberant abdomen. A right sided drain removed. Suture removed and drain removed in its entirety. A dry dressing was placed. The patient had a couple small superficial blisters of the skin related to the adhesive from the drain dressing.) A/P Assessment and Plan Presumed diverticulitis with liver abscess. Abscess drainage did not culture any bacteria. Only white blood cells were seen. Patient appears symptomatically improved from his diverticulitis. Recommendations would be made for continued antibiotic therapy. He will at some point need a follow-up CT scan to demonstrate resolution of the liver abnormality. He would likely benefit from repeat colonoscopy down the line. If he has recurrent episodes of diverticulitis or persistence of the diverticulitis without resolution he would then potentially be a candidate for more aggressive surgical therapy earlier on. I discussed this with the patient. He appears to understand. Joshua Garcia MD Jun 14, 2017 07:57
--- NOTE | 2017-06-14 08:35 | HHI.PR ---
Subjective Remarks Patient seen and evaluated for hepatic abscess which appears to be resolved General surgery consult appreciated Ingris removed. Patient with good bowel movements Objective Vitals Vital Signs Date Time Temp Pulse Resp B/P (MAP) Pulse Ox O2 Delivery O2 Flow Rate FiO2 06/14/17 04:14 06/14/17 00:41 97.9 102 18 128/80 (96) 94 06/13/17 21:59 97.8 101 18 137/82 (100) 97 06/13/17 16:00 96.9 88 18 120/89 (99) 98 06/13/17 12:00 96.6 87 18 128/87 (101) 97 06/13/17 11:23 18 I/O 06/13/17 06/13/17 06/13/17 06/14/17 06/14/17 06/14/17 07:00 15:00 23:00 07:00 15:00 23:00 Intake Total 960 ml 650 ml Output Total 25 ml Balance 960 ml 650 ml -25 ml Intake Oral 960 ml 600 ml IV Total 50 ml Drainage Total 25 ml # Voids 2 3 3 # Bowel Movements 1 Result Diagram: 06/13/17 0720 06/13/17 0720 Objective Remarks GENERAL: This is a well-nourished, well-developed patient, complaining of back pain CARDIOVASCULAR: Regular rate and rhythm without murmurs, gallops, or rubs. RESPIRATORY: Clear to auscultation. Breath sounds equal bilaterally. No wheezes , rales, or rhonchi. GASTROINTESTINAL: Abdomen soft, non-tender, mildly distended. Hyperactive bowel sounds MUSCULOSKELETAL: Extremities without clubbing, cyanosis, or edema. NEURO: Alert & Oriented x4 to person, place, time, situation. Moves all ext x4 A/P Problem List: (1) Diverticulitis ICD Code: K57.92 - Diverticulitis of intestine, part unspecified, without perforation or abscess without bleeding Plan: resolved compared to previous CT (2) Chronic pain ICD Code: G89.29 - Other chronic pain Plan: continue home lidocaine patch and oxycodone Pain mgt per dr roblero as an outpatient (3) Liver abscess ICD Code: K75.0 - Abscess of liver Plan: remove drain Follow-up of antibiotics, repeat CT abdomen and pelvis surg eval appreciated Assessment and Plan Heparin every 12 Discharge Planning Likely discharge home on po abx Carina Teixeira MD Jun 14, 2017 08:35
[2017-06-14] MEDS: DOCUSATE SODIUM 100 MG CAP PO SCH ×2 (09:00→22:00)
[2017-06-14] MEDS: POLYETHYLENE GLYCOL 17 GM PKG PO SCH (09:00)
[2017-06-14] MEDS: SODIUM CHLORIDE 0.9% 10 ML VIAL IRRIGATION SCH ×3 (09:00→22:01)
[2017-06-14 10:11] VITALS: BP 132/83; PULSE 97; RESP 18; TEMP 98.4; O2SAT 92
[2017-06-14] MEDS: SODIUM CHLORIDE 0.9% FLUSH 10 ML FLUSH IV FLUSH SCH ×2 (10:13→20:12)
[2017-06-14] MEDS: DICYCLOMINE HCL 20 MG TAB PO SCH ×4 (10:14→22:00)
[2017-06-14] MEDS: TAMSULOSIN HCL 0.4 MG CAP PO SCH (10:14)
[2017-06-14] MEDS: ALLOPURINOL 300 MG TAB PO SCH (10:14)
[2017-06-14] MEDS: HEPARIN SODIUM - SQ 10,000 UNITS/ML VIAL SQ SCH ×2 (10:14→22:01)
[2017-06-14] MEDS: CALCIUM CARBONATE 1.25 GM (CA 500 MG) TAB PO SCH ×2 (10:14→22:00)
[2017-06-14] MEDS: LIDOCAINE HCL 5% PATCH T-DERMAL SCH (10:15)
[2017-06-14] MEDS: PIPERACIL-TAZO 4.5 GM PREMIX 100 ML IV SCH ×2 (10:42→17:31)
[2017-06-14 12:00] VITALS: BP 126/84; PULSE 87; RESP 18; TEMP 98; O2SAT 96
[2017-06-14 16:00] VITALS: BP 114/77; PULSE 108; RESP 16; TEMP 98.3; O2SAT 96
[2017-06-14 20:00] VITALS: BP 120/82; PULSE 96; RESP 17; TEMP 98.5; O2SAT 96
[2017-06-14] MEDS: PROMETHAZINE HCL 25 MG TAB PO PRN (22:01)
[2017-06-15] VITALS: BP 125/80; PULSE 95; RESP 16; TEMP 98.2; O2SAT 95
[2017-06-15] MEDS: PIPERACIL-TAZO 4.5 GM PREMIX 100 ML IV SCH ×3 (02:21→17:14)
[2017-06-15] MEDS: ACETAMINOPHEN/HYDROcodone 325 MG/10 MG TAB PO PRN ×4 (02:55→21:09)
[2017-06-15 07:52] LABS: AUTOMATED NEUTROPHIL # 4.2 TH/MM3 (1.8-7.7); BASOPHIL % 0.3 % (0.0-2.0); EOSINOPHIL # 0.2 TH/MM3 (0-0.4); EOSINOPHIL % 2.9 % (0.0-4.0); HEMATOCRIT 27.5 % (39.0-51.0); HEMOGLOBIN 8.6 GM/DL (13.0-17.0); LYMPH % 19.5 % (9.0-44.0); LYMPHOCYTE # 1.3 TH/MM3 (1.0-4.8); MEAN CELL VOLUME 95.2 FL (80.0-100.0); MEAN CORPUSCULAR HEMOGLOBIN 29.9 PG (27.0-34.0); MEAN CORPUSCULAR HGB CONC 31.4 % (32.0-36.0); MEAN PLATELET VOLUME 6.4 FL (7.0-11.0); MONO % 11.5 % (0.0-8.0); MONOCYTE # 0.8 TH/MM3 (0-0.9); NEUT % 65.8 % (16.0-70.0); PLATELET COUNT 417 TH/MM3 (150-450); RED BLOOD COUNT 2.88 MIL/MM3 (4.50-5.90); WHITE BLOOD COUNT 6.5 TH/MM3 (4.0-11.0)
[2017-06-15 08:00] VITALS: BP 147/87; PULSE 107; RESP 16; TEMP 97.1; O2SAT 95
[2017-06-15 08:00] LABS: CALCIUM 8.1 MG/DL (8.5-10.1)
[2017-06-15 08:01] LABS: BICARBONATE 26.8 MEQ/L (21.0-32.0)
[2017-06-15 08:04] LABS: CREATININE 1.9 MG/DL (0.60-1.30)
[2017-06-15] MEDS: SODIUM CHLORIDE 0.9% 10 ML VIAL IRRIGATION SCH ×2 (09:00→17:00)
[2017-06-15] MEDS: DOCUSATE SODIUM 100 MG CAP PO SCH ×2 (09:00→21:00)
[2017-06-15] MEDS: POLYETHYLENE GLYCOL 17 GM PKG PO SCH (09:00)
[2017-06-15] MEDS: ALLOPURINOL 300 MG TAB PO SCH (09:20)
[2017-06-15] MEDS: TAMSULOSIN HCL 0.4 MG CAP PO SCH (09:21)
[2017-06-15] MEDS: DICYCLOMINE HCL 20 MG TAB PO SCH ×4 (09:21→21:00)
[2017-06-15] MEDS: CALCIUM CARBONATE 1.25 GM (CA 500 MG) TAB PO SCH ×2 (09:21→20:59)
[2017-06-15] MEDS: SODIUM CHLORIDE 0.9% FLUSH 10 ML FLUSH IV FLUSH SCH ×2 (09:22→21:01)
[2017-06-15] MEDS: HEPARIN SODIUM - SQ 10,000 UNITS/ML VIAL SQ SCH ×2 (09:23→21:00)
[2017-06-15] MEDS: LIDOCAINE HCL 5% PATCH T-DERMAL SCH (09:25)
[2017-06-15] MEDS: ONDANSETRON HCL 4 MG/2 ML VIAL IVP PRN ×2 (09:30→21:01)
[2017-06-15 12:00] VITALS: BP 146/83; PULSE 105; RESP 18; TEMP 97.8; O2SAT 96
--- NOTE | 2017-06-15 14:46 | HHI.NPPN ---
Subjective General Problems: Anemia, Hypertension Renal Failure: Chronic, Acute History of Present Illness 56-year-old male who was admitted yesterday with complaints of weakness and shortness of breath with ongoing diarrhea. The patient has a previous history of colon cancer, which was apparently treated in the past and apparently had a negative colonoscopy several years ago. The patient on this admission presented with anemia and was found to have a liver mass suspicious for colon mets with a possible new finding of colon mass as well. He has been seen with oncology and the plan is for a possible liver biopsy. In addition, the patient has been seen with gastroenterology patient had chronic kidney disease and creatinine that ranged from 2.2 to 1.7 in 04/2017. Additional Remarks Patient is alert, abd. pain is better, no SOB, not in distress. Objective Data Data Vital Signs Date Time Temp Pulse Resp B/P (MAP) Pulse Ox O2 Delivery O2 Flow Rate FiO2 06/15/17 12:00 97.8 105 18 146/83 (104) 96 06/15/17 08:00 97.1 107 16 147/87 (107) 95 06/15/17 00:00 98.2 95 16 125/80 (95) 95 06/14/17 20:00 98.5 96 17 120/82 (95) 96 06/14/17 16:19 18 06/14/17 16:00 98.3 108 16 114/77 (89) 96 -: 06/15/17 0700 06/15/17 0700 Physical Exam General Appearance: Well Developed, Well Nourished, No Acute Distress Throat Throat Exam: Oral Mucosa [place] & Moist Neck Neck Exam: Neck Supple Pulmonary Resp Exam: Clear Bilaterally Cardiology CV Exam: Regular, Normal Sinus Rhythm Gastrointestinal/Abdomen GI Exam: Soft, Non-Tender, Bowel Sounds Present Integumentary Skin Exam: Warm, Dry, Intact Extremeties Extremities Exam: No Edema Neurologic Neuro Exam: Alert, Awake, Oriented, Speech Clear Assessment/Plan Problem List: (1) OMAR (acute kidney injury) ICD Codes: N17.9 - Acute kidney injury Status: Acute Plan: Patient has chronic kidney disease, and has Acute kidney injury. Now admitted with loose BM and anemia. Creatinine was higher than his baseline. Possibly has an element of pre renal. Continue IVF. Has been non oliguric, Creatinine continue to improve. Continue IVF. Post liver abscess drain placement. Urine out put is adequate. Avoid Nephrotoxins. Creatinine now 1.9, possibly close to his baseline. Repeat CT abd. noted. (2) Metastatic colon cancer to liver ICD Codes: C18.9 - Malignant neoplasm of colon, unspecified; C78.7 - Secondary malignant neoplasm of liver and intrahepatic bile duct Status: Acute Plan: 2. Colon cancer. The patient has a history of colon cancer, which was apparently treated in the past. Patient has apparent liver metastasis with a possible colon mass as well. The patient is being seen with oncology. Continue followup for workup and diagnosis. (3) GI bleed ICD Codes: K92.2 - Gastrointestinal hemorrhage, unspecified Plan: Continue transfusions as needed. Plans is for possible colonoscopy on Thursday. Continue to monitor and follow up with gastroenterology. (4) HTN (hypertension) ICD Codes: I10 - HTN (hypertension) Status: Chronic Plan: Blood pressure is stable at this point. Continue to monitor. Of note, the patient had been on LIBORIO inhibitor at home. Hold LIBORIO inhibitor at this point, given acute renal failure. Liver Biopsy results noted. Check BMP in AM. (5) CKD (chronic kidney disease), stage III ICD Codes: N18.3 - Chronic kidney disease, stage 3 (moderate) Status: Acute Yuly Cowart MD Jun 15, 2017 14:46
[2017-06-15 16:00] VITALS: BP 147/81; PULSE 99; RESP 18; TEMP 97; O2SAT 97
--- NOTE | 2017-06-15 17:25 | HHI.PR ---
Subjective Remarks Drain has been removed. Slight downward trend in hemoglobin. Gradual improvement in renal function. Possible For discharge tomorrow. Objective Vital Signs Date Time Temp Pulse Resp B/P (MAP) Pulse Ox O2 Delivery O2 Flow Rate FiO2 06/15/17 16:00 97.0 99 18 147/81 (103) 97 06/15/17 12:00 97.8 105 18 146/83 (104) 96 06/15/17 08:00 97.1 107 16 147/87 (107) 95 06/15/17 00:00 98.2 95 16 125/80 (95) 95 06/14/17 20:00 98.5 96 17 120/82 (95) 96 I/O 06/14/17 06/14/17 06/14/17 06/15/17 06/15/17 06/15/17 07:00 15:00 23:00 07:00 15:00 23:00 Intake Total 720 ml Balance 720 ml Intake Oral 720 ml # Voids 3 4 3 # Bowel Movements 1 4 Result Diagram: 06/15/17 0700 06/15/17 0700 Objective Remarks GENERAL: NAD, A&Ox3 HEAD: Normocephalic. NECK: Supple, trachea midline. No lymphadenopathy. EYES: No scleral icterus. No injection or drainage. CARDIOVASCULAR: Regular rate and rhythm without murmurs, gallops, or rubs. RESPIRATORY: Breath sounds equal bilaterally. No accessory muscle use. GASTROINTESTINAL: Abdomen soft, non-tender, nondistended. MUSCULOSKELETAL: No cyanosis, or edema. SKIN: Warm and dry. NEURO: No focal neurological deficitis. A/P Problem List: (1) OMAR (acute kidney injury) ICD Code: N17.9 - Acute kidney injury Status: Acute (2) GI bleed ICD Code: K92.2 - Gastrointestinal hemorrhage, unspecified (3) Acute blood loss anemia ICD Code: D62 - Acute posthemorrhagic anemia (4) Metastatic colon cancer to liver ICD Code: C18.9 - Malignant neoplasm of colon, unspecified; C78.7 - Secondary malignant neoplasm of liver and intrahepatic bile duct Status: Acute (5) Acute kidney injury ICD Code: N17.9 - Acute kidney failure, unspecified Status: Acute Assessment and Plan 56-year-old male admitted secondary to abdominal pain with abdominal mass, pancreatitis, and GI bleed. Labs reviewed. Downward trend in hemoglobin. Renal function is improving. Continue to monitor labs. Labs ordered for further monitoring. Continue to follow CBC. Diverticulitis Liver abscess Drain has been removed Surgery following If stable through tomorrow will discharge Continue by mouth antibiotics at time of discharge GI bleed Acute blood loss anemia Slight downward trend in hemoglobin Transfuse as needed Follow CBC GI consulted Mass could be source of bleed Clear liquid diet Pancreatitis Clear liquid diet Follow lipase May be reactive or related to mass Abdominal pain Abdominal mass Possible metastatic disease History of colon cancer Possible recurrence of cancer with metastasis Colonoscopy planned Biopsy planned Oncology has been consulted and is following Hypertension Continue baseline treatment Follow blood pressures Adjust treatments as needed CVA Hx Asthma Osteoarthritis GERD Gout Sciatica No exacerbations of these conditions Follow clinically DVT prophylaxis SCDs Severiano Geurrero MD Jun 15, 2017 17:25
[2017-06-15 20:00] VITALS: BP 123/77; PULSE 91; RESP 22; TEMP 98; O2SAT 98
[2017-06-16] MEDS: SODIUM CHLORIDE 0.9% 10 ML VIAL IRRIGATION SCH ×3 (01:00→16:56)
[2017-06-16] MEDS: PIPERACIL-TAZO 4.5 GM PREMIX 100 ML IV SCH ×3 (02:53→18:11)
[2017-06-16] MEDS: ACETAMINOPHEN/HYDROcodone 325 MG/10 MG TAB PO PRN ×4 (03:04→19:32)
[2017-06-16 08:05] VITALS: BP 145/75; PULSE 84; RESP 15; TEMP 96.7; O2SAT 98
[2017-06-16] MEDS: DOCUSATE SODIUM 100 MG CAP PO SCH ×3 (08:15→22:20)
[2017-06-16] MEDS: DICYCLOMINE HCL 20 MG TAB PO SCH ×4 (08:15→22:19)
[2017-06-16] MEDS: POLYETHYLENE GLYCOL 17 GM PKG PO SCH (08:15)
[2017-06-16] MEDS: TAMSULOSIN HCL 0.4 MG CAP PO SCH (08:15)
[2017-06-16] MEDS: ALLOPURINOL 300 MG TAB PO SCH (08:15)
[2017-06-16] MEDS: CALCIUM CARBONATE 1.25 GM (CA 500 MG) TAB PO SCH ×2 (08:15→22:19)
[2017-06-16] MEDS: LIDOCAINE HCL 5% PATCH T-DERMAL SCH ×2 (08:16→14:38)
[2017-06-16] MEDS: SODIUM CHLORIDE 0.9% FLUSH 10 ML FLUSH IV FLUSH SCH ×2 (08:16→19:33)
[2017-06-16] MEDS: HEPARIN SODIUM - SQ 10,000 UNITS/ML VIAL SQ SCH ×2 (08:23→22:20)
--- NOTE | 2017-06-16 11:52 | HHI.PR ---
Subjective Remarks MRI plan for further evaluation of liver mass. Patient has no new complaints. Some nausea was present yesterday. Objective Vital Signs Date Time Temp Pulse Resp B/P (MAP) Pulse Ox O2 Delivery O2 Flow Rate FiO2 06/16/17 08:05 96.7 84 15 145/75 (98) 98 06/15/17 20:00 98.0 91 22 123/77 (92) 98 06/15/17 16:00 97.0 99 18 147/81 (103) 97 06/15/17 12:00 97.8 105 18 146/83 (104) 96 I/O 06/15/17 06/15/17 06/15/17 06/16/17 06/16/17 06/16/17 07:00 15:00 23:00 07:00 15:00 23:00 Intake Total 480 ml 1044 ml Output Total 500 ml Balance 480 ml 544 ml Intake Oral 480 ml 944 ml IV Total 100 ml Output Urine Total 500 ml # Voids 3 4 4 # Bowel Movements 3 2 Result Diagram: 06/15/17 0700 06/15/17 0700 Objective Remarks GENERAL: NAD, A&Ox3 HEAD: Normocephalic. NECK: Supple, trachea midline. No lymphadenopathy. EYES: No scleral icterus. No injection or drainage. CARDIOVASCULAR: Regular rate and rhythm without murmurs, gallops, or rubs. RESPIRATORY: Breath sounds equal bilaterally. No accessory muscle use. GASTROINTESTINAL: Abdomen soft, non-tender, nondistended. MUSCULOSKELETAL: No cyanosis, or edema. SKIN: Warm and dry. NEURO: No focal neurological deficitis. A/P Problem List: (1) OMAR (acute kidney injury) ICD Code: N17.9 - Acute kidney injury Status: Acute (2) GI bleed ICD Code: K92.2 - Gastrointestinal hemorrhage, unspecified (3) Acute blood loss anemia ICD Code: D62 - Acute posthemorrhagic anemia (4) Metastatic colon cancer to liver ICD Code: C18.9 - Malignant neoplasm of colon, unspecified; C78.7 - Secondary malignant neoplasm of liver and intrahepatic bile duct Status: Acute (5) Acute kidney injury ICD Code: N17.9 - Acute kidney failure, unspecified Status: Acute Assessment and Plan 56-year-old male admitted secondary to abdominal pain with abdominal mass, pancreatitis, and GI bleed. MRI ordered for further detail liver mass. Further decisions in regards to this will be based on findings of MRI. Diverticulitis Liver abscess Drain has been removed Surgery following If stable through tomorrow will discharge Continue by mouth antibiotics at time of discharge GI bleed Acute blood loss anemia Slight downward trend in hemoglobin Transfuse as needed Follow CBC GI consulted Mass could be source of bleed Clear liquid diet Pancreatitis Clear liquid diet Follow lipase May be reactive or related to mass Abdominal pain Abdominal mass Possible metastatic disease History of colon cancer Possible recurrence of cancer with metastasis Colonoscopy planned Biopsy planned Oncology has been consulted and is following Hypertension Continue baseline treatment Follow blood pressures Adjust treatments as needed CVA Hx Asthma Osteoarthritis GERD Gout Sciatica No exacerbations of these conditions Follow clinically DVT prophylaxis SCDs Severiano Guerrero MD Jun 16, 2017 11:52
[2017-06-16 12:00] VITALS: BP 120/77; PULSE 69; RESP 16; TEMP 97.5; O2SAT 96
[2017-06-16] MEDS ORDERED: GADOBENATE DIM PF 529 MG/ML 5 ML VIAL (for RAD MRI) IV ONE (14:44)
--- NOTE | 2017-06-16 15:13 | RADRPT ---
EXAM DATE/TIME: 06/16/2017 14:11 [facility] COMPARISON: CT ABDOMEN & PELVIS W/O CONTRAST, June 13, 2017, 12:19. INDICATIONS : Mass vs. abscess. CONTRAST: 20 cc Multihance (gadobenate) IV MEDICAL HISTORY : Carcinoma, colon. Hypertension. SURGICAL HISTORY : Left hip replacement. Colon surgery. ENCOUNTER: Initial ACUITY: 4-6 days PAIN SCORE: 3/10 LOCATION: abdomen TECHNIQUE: Multiplanar, multisequence magnetic resonance imaging of the abdomen was performed without and with i ntravenous contrast. FINDINGS: LIVER: A large enhancing mass measuring 6.6 x 6.1 x 7.2 cm in size is identified in segment 5 of the liver. The mass is mildly T2 hyperintense compared to the adjacent liver. It demonstrates early arterial enh ancement without significant washout. Significant restricted diffusion is evident within the mass. Li anselmo is otherwise unremarkable. Portal vein is patent. BILIARY: There is no intra- or extra-hepatic biliary ductal dilatation. Gallbladder contains no stones. SPLEEN: Within normal limits. PANCREAS: Within normal limits. ADRENALS: Within normal limits. KIDNEYS: Kidneys are small and demonstrate generalized cortical thinning. The right measures 8.3 cm in length and the left 7.6 cm. OTHER: Aorta is nonaneurysmal. There is no lymphadenopathy. CONCLUSION: 1. 7 cm solid enhancing mass within the right hepatic lobe. Percutaneous biopsy should be considered to exclude metastatic disease. 2. Bilateral parenchymal renal disease with cortical thinning. Johan Valladares MD on June 16, 2017 at 14:55 Board Certified Radiologist. This report was verified electronically.
--- NOTE | 2017-06-16 15:43 | HHI.NPPN ---
Subjective General Problems: Anemia, Hypertension Renal Failure: Chronic, Acute History of Present Illness 56-year-old male who was admitted yesterday with complaints of weakness and shortness of breath with ongoing diarrhea. The patient has a previous history of colon cancer, which was apparently treated in the past and apparently had a negative colonoscopy several years ago. The patient on this admission presented with anemia and was found to have a liver mass suspicious for colon mets with a possible new finding of colon mass as well. He has been seen with oncology and the plan is for a possible liver biopsy. In addition, the patient has been seen with gastroenterology patient had chronic kidney disease and creatinine that ranged from 2.2 to 1.7 in 04/2017. Additional Remarks Patient is alert, abd. pain is better, now NPO for MRI. Objective Data Data 06/16/17 06/17/17 19:00 07:00 Intake Total 100 ml Balance 100 ml IV Total 100 ml Vital Signs Date Time Temp Pulse Resp B/P (MAP) Pulse Ox O2 Delivery O2 Flow Rate FiO2 06/16/17 12:00 97.5 69 16 120/77 (91) 96 06/16/17 08:05 96.7 84 15 145/75 (98) 98 06/15/17 20:00 98.0 91 22 123/77 (92) 98 06/15/17 16:00 97.0 99 18 147/81 (103) 97 -: 06/15/17 0700 06/15/17 0700 Physical Exam General Appearance: Well Developed, Well Nourished, No Acute Distress Throat Throat Exam: Oral Mucosa [place] & Moist Neck Neck Exam: Neck Supple Pulmonary Resp Exam: Clear Bilaterally Cardiology CV Exam: Regular, Normal Sinus Rhythm Gastrointestinal/Abdomen GI Exam: Soft, Non-Tender, Bowel Sounds Present Integumentary Skin Exam: Warm, Dry, Intact Extremeties Extremities Exam: No Edema Neurologic Neuro Exam: Alert, Awake, Oriented, Speech Clear Assessment/Plan Problem List: (1) OMAR (acute kidney injury) ICD Codes: N17.9 - Acute kidney injury Status: Acute Plan: Patient has chronic kidney disease, and has Acute kidney injury. Now admitted with loose BM and anemia. Creatinine was higher than his baseline. Possibly has an element of pre renal. Continue IVF. Has been non oliguric, Creatinine continue to improve. Continue IVF. Post liver abscess drain placement. Urine out put is adequate. Avoid Nephrotoxins. Creatinine now 1.9, possibly close to his baseline. For abd. MRI. No new BMP today. If discharged, can be followed as out patient. (2) Metastatic colon cancer to liver ICD Codes: C18.9 - Malignant neoplasm of colon, unspecified; C78.7 - Secondary malignant neoplasm of liver and intrahepatic bile duct Status: Acute Plan: 2. Colon cancer. The patient has a history of colon cancer, which was apparently treated in the past. Patient has apparent liver metastasis with a possible colon mass as well. The patient is being seen with oncology. Continue followup for workup and diagnosis. (3) GI bleed ICD Codes: K92.2 - Gastrointestinal hemorrhage, unspecified Plan: Continue transfusions as needed. Plans is for possible colonoscopy on Thursday. Continue to monitor and follow up with gastroenterology. (4) HTN (hypertension) ICD Codes: I10 - HTN (hypertension) Status: Chronic Plan: Blood pressure is stable at this point. Continue to monitor. Of note, the patient had been on LIBORIO inhibitor at home. Hold LIBORIO inhibitor at this point, given acute renal failure. Liver Biopsy results noted. Check BMP in AM. (5) CKD (chronic kidney disease), stage III ICD Codes: N18.3 - Chronic kidney disease, stage 3 (moderate) Status: Acute Yuly Cowart MD Jun 16, 2017 15:43
[2017-06-16 16:00] VITALS: BP 128/70; PULSE 115; RESP 16; TEMP 97.6; O2SAT 98
[2017-06-16] MEDS ORDERED: ALPRAZolam 0.5 MG TAB PO PRN (16:15)
[2017-06-16] MEDS ORDERED: ALPRAZolam 0.25 MG TAB PO PRN (16:15)
[2017-06-16] MEDS: LORazepam 1 MG TAB PO PRN (19:32)
[2017-06-16 20:00] VITALS: BP 133/71; PULSE 115; RESP 17; TEMP 98.1; O2SAT 97
[2017-06-16] MEDS: SODIUM CHLORIDE 0.9% FLUSH 10 ML FLUSH IV FLUSH PRN (22:18)
[2017-06-16 23:17] LABS: CARCINOEMBRYONIC ANTIGEN 1.5 NG/ML (0.2-5.0)
[2017-06-16 23:55] LABS: CA 19-9 9.9 U/ML (0.0-35.0)
[2017-06-17] VITALS: BP 129/71; PULSE 109; RESP 18; TEMP 97.9; O2SAT 96
[2017-06-17] MEDS: SODIUM CHLORIDE 0.9% 10 ML VIAL IRRIGATION SCH ×2 (01:00→09:00)
[2017-06-17] MEDS: PIPERACIL-TAZO 4.5 GM PREMIX 100 ML IV SCH ×2 (02:04→09:40)
[2017-06-17] MEDS: SODIUM CHLORIDE 0.9% FLUSH 10 ML FLUSH IV FLUSH PRN (02:05)
[2017-06-17] MEDS: LORazepam 1 MG TAB PO PRN (03:49)
[2017-06-17] MEDS: ACETAMINOPHEN/HYDROcodone 325 MG/10 MG TAB PO PRN ×2 (03:49→09:41)
[2017-06-17 07:06] LABS: AUTOMATED NEUTROPHIL # 5.2 TH/MM3 (1.8-7.7); BASOPHIL % 0.4 % (0.0-2.0); EOSINOPHIL # 0.2 TH/MM3 (0-0.4); EOSINOPHIL % 2.4 % (0.0-4.0); HEMATOCRIT 25.5 % (39.0-51.0); HEMOGLOBIN 8.4 GM/DL (13.0-17.0); LYMPH % 18.4 % (9.0-44.0); LYMPHOCYTE # 1.3 TH/MM3 (1.0-4.8); MEAN CELL VOLUME 95.4 FL (80.0-100.0); MEAN CORPUSCULAR HEMOGLOBIN 31.6 PG (27.0-34.0); MEAN CORPUSCULAR HGB CONC 33.1 % (32.0-36.0); MEAN PLATELET VOLUME 6.5 FL (7.0-11.0); MONOCYTE # 0.6 TH/MM3 (0-0.9); NEUT % 70.8 % (16.0-70.0); PLATELET COUNT 346 TH/MM3 (150-450); RED BLOOD COUNT 2.68 MIL/MM3 (4.50-5.90); RED CELL DISTRIBUTION WIDTH 16.1 % (11.6-17.2); WHITE BLOOD COUNT 7.3 TH/MM3 (4.0-11.0)
[2017-06-17 07:29] LABS: INTERNATIONAL NORMALIZED RATIO 1.1 RATIO; PROTHROMBIN TIME - PATIENT 11.6 SEC (9.8-11.6)
[2017-06-17 07:33] LABS: CHLORIDE 109 MEQ/L (98-107); SODIUM (NA) 142 MEQ/L (136-145)
[2017-06-17 07:42] LABS: ALBUMIN 1.6 GM/DL (3.4-5.0); BICARBONATE 26.6 MEQ/L (21.0-32.0); BLOOD UREA NITROGEN 8 MG/DL (7-18); CALCIUM 7.5 MG/DL (8.5-10.1); GLUCOSE,RANDOM 77 MG/DL (74-106)
[2017-06-17 07:45] LABS: ALT (GPT) 7 U/L (12-78); AST (GOT) 9 U/L (15-37); GLOMERULAR FILTRATION RATE 45 ML/MIN (>89)
[2017-06-17 07:47] LABS: TOTAL BILIRUBIN ADULT 0.2 MG/DL (0.2-1.0); TOTAL PROTEIN 6.2 GM/DL (6.4-8.2)
[2017-06-17 07:48] LABS: ALKALINE PHOSPHATASE 67 U/L (45-117)
[2017-06-17] MEDS: POLYETHYLENE GLYCOL 17 GM PKG PO SCH (09:00)
[2017-06-17] MEDS: DOCUSATE SODIUM 100 MG CAP PO SCH (09:00)
[2017-06-17] MEDS: LIDOCAINE HCL 5% PATCH T-DERMAL SCH (09:40)
[2017-06-17] MEDS: CALCIUM CARBONATE 1.25 GM (CA 500 MG) TAB PO SCH (09:41)
[2017-06-17] MEDS: TAMSULOSIN HCL 0.4 MG CAP PO SCH (09:41)
[2017-06-17] MEDS: SODIUM CHLORIDE 0.9% FLUSH 10 ML FLUSH IV FLUSH SCH (09:41)
[2017-06-17] MEDS: DICYCLOMINE HCL 20 MG TAB PO SCH (09:41)
[2017-06-17] MEDS: ALLOPURINOL 300 MG TAB PO SCH (09:41)
[2017-06-17] MEDS: HEPARIN SODIUM - SQ 10,000 UNITS/ML VIAL SQ SCH (09:42)
[2017-06-17] MEDS: PROMETHAZINE HCL 25 MG TAB PO PRN (09:46)
--- NOTE | 2017-06-17 10:49 | HHI.PR ---
Subjective Remarks MRI showed no evidence of abscess, with findings of a solid mass. Tissue biopsy recommended. Tumor markers repeated/expanded and are all within normal limits, decreasing the odds that this mass is cancer. Based on growth pattern imaging and peripheral I suspect that this is a benign tumor; hepatocellular adenoma vs. focal nodular hyperplasia. Objective Vital Signs Date Time Temp Pulse Resp B/P (MAP) Pulse Ox O2 Delivery O2 Flow Rate FiO2 06/17/17 00:00 97.9 109 18 129/71 (90) 96 06/16/17 20:00 98.1 115 17 133/71 (91) 97 06/16/17 16:00 97.6 115 16 128/70 (89) 98 06/16/17 12:00 97.5 69 16 120/77 (91) 96 I/O 06/16/17 06/16/17 06/16/17 06/17/17 06/17/17 06/17/17 07:00 15:00 23:00 07:00 15:00 23:00 Intake Total 1044 ml 100 ml 100 ml 100 ml Output Total 500 ml 400 ml Balance 544 ml 100 ml 100 ml -300 ml Intake Oral 944 ml IV Total 100 ml 100 ml 100 ml 100 ml Output Urine Total 500 ml 400 ml # Voids 4 4 4 # Bowel Movements 2 Result Diagram: 06/17/17 0615 06/17/17 0615 Objective Remarks GENERAL: NAD, A&Ox3 HEAD: Normocephalic. NECK: Supple, trachea midline. No lymphadenopathy. EYES: No scleral icterus. No injection or drainage. CARDIOVASCULAR: Regular rate and rhythm without murmurs, gallops, or rubs. RESPIRATORY: Breath sounds equal bilaterally. No accessory muscle use. GASTROINTESTINAL: Abdomen soft, non-tender, nondistended. MUSCULOSKELETAL: No cyanosis, or edema. SKIN: Warm and dry. NEURO: No focal neurological deficitis. A/P Problem List: (1) OMAR (acute kidney injury) ICD Code: N17.9 - Acute kidney injury Status: Acute (2) GI bleed ICD Code: K92.2 - Gastrointestinal hemorrhage, unspecified (3) Acute blood loss anemia ICD Code: D62 - Acute posthemorrhagic anemia (4) Metastatic colon cancer to liver ICD Code: C18.9 - Malignant neoplasm of colon, unspecified; C78.7 - Secondary malignant neoplasm of liver and intrahepatic bile duct Status: Acute (5) Acute kidney injury ICD Code: N17.9 - Acute kidney failure, unspecified Status: Acute Assessment and Plan 56-year-old male admitted secondary to abdominal pain with abdominal mass, pancreatitis, and GI bleed. Solid mass on MRI (no liquid, no gas). Immediate surgery not recommended due to active diverticulitis. Benign mass suspected, hepatocellular adenoma vs. focal nodular hyperplasia. Repeat biopsy planned, for tissue sample. Diverticulitis Liver abscess Drain has been removed Surgery following If stable through tomorrow will discharge Continue by mouth antibiotics at time of discharge GI bleed Acute blood loss anemia Slight downward trend in hemoglobin Transfuse as needed Follow CBC GI consulted Mass could be source of bleed Clear liquid diet Pancreatitis Clear liquid diet Follow lipase May be reactive or related to mass Abdominal pain Abdominal mass Possible metastatic disease History of colon cancer Possible recurrence of cancer with metastasis Colonoscopy planned Biopsy planned Oncology has been consulted and is following Hypertension Continue baseline treatment Follow blood pressures Adjust treatments as needed CVA Hx Asthma Osteoarthritis GERD Gout Sciatica No exacerbations of these conditions Follow clinically DVT prophylaxis SCDs Severiano Guerrero MD Jun 17, 2017 10:49
[2017-06-17] MEDS ORDERED: CIPR500T2 PO (11:29)
[2017-06-17] MEDS ORDERED: METR-1 PO (11:29)
[2017-06-17] MEDS ORDERED: LACTTAB8 PO (11:29)
[2017-06-17] MEDS ORDERED: NORC5TAB PO (11:31)
[2017-06-17] MEDS ORDERED: TAMS5CAP PO (11:56)
[2017-06-17 12:00] VITALS: BP 125/70; PULSE 84; RESP 18; TEMP 97.3; O2SAT 96
--- NOTE | 2017-06-18 09:00 | HHI.DS ---
Discharge Summary Admission Date Jun 05, 2017 at 17:36 Discharge Date: Jun 18, 2017 Admitting Diagnosis Diverticulitis. Metastatic colon cancer with liver mass. Acute kid (1) Diverticulitis ICD Code: K57.92 - Diverticulitis of intestine, part unspecified, without perforation or abscess without bleeding Diagnosis: Principal (2) Chronic pain ICD Code: G89.29 - Other chronic pain Diagnosis: Principal (3) Liver abscess ICD Code: K75.0 - Abscess of liver Diagnosis: Principal Procedures Liver Biopsy Liver Drain Brief History - From Admission Mr. Sinclair is a 56-year-old male. He came in secondary to weakness and shortness of breath. He says he's been feeling ill for a month. One month ago he was admitted secondary to diverticulitis in the setting of dehydration, acute injury of the kidney, and influenza. At that time liver abscess versus mass was seen. Patient's past history of colon cancer. Etiology was a mixed picture given the infection. The patient was discharged on Cipro, Flagyl, and tramadol to follow up as an outpatient. He has been taking his medications as directed and completed the course. Imaging at this admit shows no evidence of infection but continues to show mass and now, with clearer imaging in light of no infection, suggestions of metastasis are reported.. Patient is complaining of abdominal discomfort. Acute kidney injury is also present and IV hydration has been initiated. Evidence of GI bleed is present patient has a downward trend in hemoglobin from 11.2 to 8.7. CBC/BMP: 06/17/17 0615 06/17/17 0615 Significant Findings Laboratory Tests Test 06/16/17 21:00 06/17/17 06:15 06/17/17 09:10 Red Blood Count 2.68 MIL/MM3 (4.50-5.90) Hemoglobin 8.4 GM/DL (13.0-17.0) Hematocrit 25.5 % (39.0-51.0) Mean Platelet Volume 6.5 FL (7.0-11.0) Neutrophils (%) (Auto) 70.8 % (16.0-70.0) Creatinine 1.60 MG/DL (0.60-1.30) Total Protein 6.2 GM/DL (6.4-8.2) Albumin 1.6 GM/DL (3.4-5.0) Calcium Level 7.5 MG/DL (8.5-10.1) Aspartate Amino Transf (AST/SGOT) 9 U/L (15-37) Alanine Aminotransferase (ALT/SGPT) 7 U/L (12-78) Potassium Level 3.4 MEQ/L (3.5-5.1) Chloride Level 109 MEQ/L (98-107) Estimat Glomerular Filtration Rate 45 ML/MIN (>89) PE at Discharge GENERAL: This is a well-nourished, well-developed patient, complaining of back pain CARDIOVASCULAR: Regular rate and rhythm without murmurs, gallops, or rubs. RESPIRATORY: Clear to auscultation. Breath sounds equal bilaterally. No wheezes , rales, or rhonchi. GASTROINTESTINAL: Abdomen soft, non-tender, mildly distended. Hyperactive bowel sounds MUSCULOSKELETAL: Extremities without clubbing, cyanosis, or edema. NEURO: Alert & Oriented x4 to person, place, time, situation. Moves all ext x4 Hospital Course Mr. Guadalupe is a 56-year-old male. He has a recent history of diverticulitis and was found to have diverticulitis again. He is also being followed in regards to liver abscess. Further workup of abscess during this admission shows that it is solid, not cystic or liquid containing to suggest abscess. Tumor marker workup is negative for any signs of cancer. The liver mass likely represents a benign tumor but in light of his recent diverticulitis which is still being treated he is not a surgical candidate at the moment. He had a liver biopsy on here with 3 core samples taken, all these show inflammatory cells without specific diagnosis. This would be a potential finding in something like hepatocellular adenoma. Diverticulitis is now under control. He will continue antibiotics for 1 more week and follow up with outpatient surgery in regards to his liver mass. Medically cleared and stable for discharge home today. Repeat imaging also ordered for patient to obtain as an outpatient. Pt Condition on Discharge: Stable Discharge Disposition: Discharge Home Discharge Time: <= 30 minutes Discharge Instructions DIET: Follow Instructions for: As Tolerated, No Restrictions Activities you can perform: Regular-No Restrictions Follow up Referrals: PCP Follow-up - 2 Weeks Surgical - 6 Weeks with Joshua Garcia MD New Medications: Ciprofloxacin (Ciprofloxacin) 500 Mg Tab 500 MG PO BID for Infection, #14 TAB 0 Refills Hydrocodone-Acetaminophen (Lenore) 5 Mg-325 Mg Tab 1 TAB PO Q6H PRN for PAIN, #30 TAB 0 Refills Lactobacillus Acidophilus (Lactobacillus Acidophilus) 1 Billion Cell Tab 1 TAB PO TIDAC for Nutritional Supplement, #30 TAB 0 Refills Metronidazole (Flagyl) 500 Mg Tab 500 MG PO TID for Infection, #21 TAB 0 Refills Tamsulosin (Flomax) 0.4 Mg Cap 0.4 MG PO DAILY for Urination, #30 CAP Continued Medications: Albuterol 8.5 GM Inh (Proair Hfa 8.5 GM Inh) 90 Mcg/Act Aer 2 PUFF INH BID PRN for SHORTNESS OF BREATH, #1 INHALER 0 Refills 108 mcg/actuation Allopurinol (Allopurinol) 300 Mg Tab 300 MG PO DAILY for Gout, #30 TAB 0 Refills Atenolol (Atenolol) 50 Mg Tab 50 MG PO DAILY for Blood Pressure Management, #30 TAB 0 Refills Atorvastatin (Atorvastatin) 20 Mg Tab 20 MG PO HS for Cholesterol Management, #30 TAB 0 Refills Cyclobenzaprine (Flexeril) 10 Mg Tab 10 MG PO TID for Muscle Spasm, #90 TAB 0 Refills Lidocaine (Lidoderm) 5 % Adh..patch Lisinopril (Lisinopril) 40 Mg Tab 40 MG PO DAILY for Blood Pressure Management, #30 TAB 0 Refills Discontinued Medications: Naproxen (Naproxen) 500 Mg Tab 500 MG PO BID, #60 TAB 0 Refills Prednisone (Prednisone) 10 Mg Tab 10 MG PO DAILY for gout, TAB 0 Refills Severiano Guerrero MD Jun 18, 2017 09:00
--- NOTE | 2017-07-03 08:20 | MR ---
cc: Ming Ross MD DATE: 06/08/2017 PROCEDURE PERFORMED: EGD. PREOPERATIVE DIAGNOSES: 1. Dyspepsia. 2. Dysphagia. POSTOPERATIVE DIAGNOSES: 1. Distal esophageal stricture, status post dilation with [id number] balloon. 2. Erosive/ulcerative esophagitis in distal esophagus, likely related to acid reflux. 3. Hiatal hernia with gastroesophageal reflux disease. BRIEF HISTORY INDICATION(S) FOR SURGERY: The patient was admitted to the hospital with history of chronic dyspepsia associated with intermittent dysphagia, mainly with solids. The patient denied any history of hematemesis, melena, hematochezia, anorexia, weight loss. PHYSICAL EXAMINATION: ABDOMEN: Soft. No mass palpable. No ascites. Bowel sounds are normal. LUNGS: Symmetrical, good air entry. No rales or rhonchi. HEART: Ejection systolic murmur grade 2/6 at the left sternal border. MEDICATIONS: . TYPE OF ANESTHESIA: MAC by anesthesia. INSTRUMENT: Pentax video endoscope. PROCEDURE: The patient explained procedure, risks, benefits, alternative and informed consent was obtained. He was placed in the left lateral position. IV propofol was given. Scope was introduced under direct vision into the esophagus, advanced up to the duodenum. Examination of the duodenal bulb, second and third portion of the duodenum revealed normal small bowel mucosa. Examination of the stomach revealed no significant finding. On retroflexion of the scope in the stomach, a small hiatal hernia was seen. Examination of the esophagus revealed irregular Z-line associated with stricture in the distal esophagus, close to the Z-line. The stricture appeared benign, likely peptic stricture. There is also evidence of severe reflux esophagitis in the form of linear erosions and superficial ulcerations. Biopsies were obtained from distal esophagus for further evaluation. Stricture was dilated using TTS balloon size 16-18 mm. Examination of the stomach revealed mild erythema in the antrum. Biopsies were obtained to check for H. pylori infection. Evaluation of the duodenal bulb, second and third portion of the duodenum revealed no abnormalities. IMPRESSION: 1. Distal esophageal stricture, status post dilation with [id number] balloon. 2. Erosive/ulcerative esophagitis in distal esophagus, likely related to acid reflux. 3. Hiatal hernia with gastroesophageal reflux disease. RECOMMENDATIONS: 1. Protonix 40 mg twice a day. 2. Followup on the pathology results. 3. Return to the office after discharge from the hospital. MD CHRISS Vidal/LINDA , 05:43 PM , 07:15 PM
--- NOTE | 2017-07-03 08:27 | MR ---
cc: Ming Ross MD DATE: 06/08/2017 PROCEDURE PERFORMED: Colonoscopy. PREOPERATIVE DIAGNOSES: 1. History of colon polyps. 2. Recent change in bowel habits. POSTOPERATIVE DIAGNOSES: 1. The patient status post partial colon resection with ileocolic anastomosis. 2. Diffuse colon diverticulosis. 3. Descending colon polyp. 4. Left colon diverticulosis. 5. Stricture in the sigmoid colon, likely related to diverticulosis. BRIEF HISTORY INDICATION(S) FOR SURGERY: The patient is an elderly male who was admitted to the hospital with history of recent change in bowel habits associated with abdominal pain. He denied any history of rectal bleeding, anorexia, weight loss. PAST MEDICAL HISTORY: Significant for partial colon resection. PHYSICAL EXAMINATION: ABDOMEN: Soft. No mass palpable. No ascites. Bowel sounds are normal. LUNGS: Symmetrical good air entry. A few rales heard at both bases. HEART: Ejection systolic murmur grade II/ heard at the left sternal border. MEDICATIONS: . TYPE OF ANESTHESIA: MAC by anesthesia. INSTRUMENT: Pentax video colonoscope. PROCEDURE: The patient explained procedure, risks, benefits, alternative and informed consent was obtained. Digital rectal exam was performed. No rectal masses were detected. The patient was placed in the left lateral position and IV propofol was given. Scope was then introduced into the rectum, advanced up to the ileocolic anastomosis. Colon preparation was fair. Examination of the anastomosis showed no obvious abnormalities. Examination of the rest of the colon revealed presence of diffuse colon diverticulosis, more severe in the left colon. A narrowing was noticed in the sigmoid colon through which the scope passed with some difficulty. Descending colon exam revealed a solitary 12 mm sessile polyp. The polyp was removed by hot snare cautery. Multiple biopsies were taken from the sigmoid colon stricture. Examination of the rectum under retroflexion of the scope revealed grade I internal hemorrhoids. IMPRESSION: 1. The patient status post partial colon resection with ileocolic anastomosis. 2. Diffuse colon diverticulosis. 3. Descending colon polyp. 4. Left colon diverticulosis. 5. Stricture in the sigmoid colon, likely related to diverticulosis. RECOMMENDATIONS: 1. Followup on the path results. 2. Repeat colonoscopy in 1 year. 3. Further evaluation of the sigmoid stricture with barium enema. 4. Followup in the office after discharge from the hospital. MD JOHNATHON Vidal , 05:49 PM , 07:57 PM
== END 2017-06-17 14:39 | disposition home or self-care (01) | DRG 441 ==
LOC: PHED 13:48 → PHEDA 17:36 → PH3B 21:23
PROVIDERS: ADMIT Hospitalist; ATTEND Hospitalist
PROC: 0D738ZZ Dilation of Lower Esophagus, Via Natural or Artificial Opening Endoscopic (ICD-10-PCS; 2017-06-08)
PROC: 0DB38ZX Excision of Lower Esophagus, Via Natural or Artificial Opening Endoscopic, Diagnostic (ICD-10-PCS; 2017-06-08)
PROC: 0DB78ZX Excision of Stomach, Pylorus, Via Natural or Artificial Opening Endoscopic, Diagnostic (ICD-10-PCS; 2017-06-08)
PROC: 0DBM8ZZ Excision of Descending Colon, Via Natural or Artificial Opening Endoscopic (ICD-10-PCS; 2017-06-08)
PROC: 0DBN8ZX Excision of Sigmoid Colon, Via Natural or Artificial Opening Endoscopic, Diagnostic (ICD-10-PCS; 2017-06-08)
PROC: 0FB13ZX Excision of Right Lobe Liver, Percutaneous Approach, Diagnostic (ICD-10-PCS; 2017-06-09)
PROC: 0F9130Z Drainage of Right Lobe Liver with Drainage Device, Percutaneous Approach (ICD-10-PCS; 2017-06-09)
PROC: 30233N1 Transfusion of Nonautologous Red Blood Cells into Peripheral Vein, Percutaneous Approach (ICD-10-PCS; principal; 2017-06-10)
DX: K75.0 Abscess of liver (principal); K85.90 Acute pancreatitis without necrosis or infection, unspecified; K56.699 Other intestinal obstruction unspecified as to partial versus complete obstruction; E87.2 Acidosis; N17.9 Acute kidney failure, unspecified; K57.32 Diverticulitis of large intestine without perforation or abscess without bleeding; N18.3 Chronic kidney disease, stage 3 (moderate); D62 Acute posthemorrhagic anemia; K22.10 Ulcer of esophagus without bleeding; K92.2 Gastrointestinal hemorrhage, unspecified; E83.51 Hypocalcemia; E83.42 Hypomagnesemia; E87.5 Hyperkalemia; Z96.642 Presence of left artificial hip joint; G89.29 Other chronic pain; M54.40 Lumbago with sciatica, unspecified side; J45.909 Unspecified asthma, uncomplicated; I12.9 Hypertensive chronic kidney disease with stage 1 through stage 4 chronic kidney disease, or unspecified chronic kidney disease; M10.9 Gout, unspecified; E86.0 Dehydration; M19.90 Unspecified osteoarthritis, unspecified site; K21.9 Gastro-esophageal reflux disease without esophagitis; F41.9 Anxiety disorder, unspecified; E78.5 Hyperlipidemia, unspecified; K59.00 Constipation, unspecified; F10.20 Alcohol dependence, uncomplicated; K22.2 Esophageal obstruction; K44.9 Diaphragmatic hernia without obstruction or gangrene; K57.30 Diverticulosis of large intestine without perforation or abscess without bleeding; K63.5 Polyp of colon; R01.1 Cardiac murmur, unspecified; R33.9 Retention of urine, unspecified; Z86.010 Personal history of colon polyps; Z90.49 Acquired absence of other specified parts of digestive tract; Z92.21 Personal history of antineoplastic chemotherapy; Z85.038 Personal history of other malignant neoplasm of large intestine; Z87.891 Personal history of nicotine dependence; Z86.73 Personal history of transient ischemic attack (TIA), and cerebral infarction without residual deficits
CPT/HCPCS: 10030; 36430; 47000; 71045; 74176; 74183; 75989; 76705; 76775; 77012; 80048; 80053; 81001; 82105; 82140; 82378; 82570; 82607; 83540; 83550; 83605; 83690; 83735; 83880; 84100; 84300; 84443; 84702; 85007; 85014; 85018; 85025; 85027; 85610; 85730; 86301; 86850; 86900; 86901; 86920; 87040; 87070; 87205; 87493; 88305; 88307; 88312; 93005; 96361; 96374; 99151; A9577; C1726; C1729; C1769; G0103; J0610; J1644; J1650; J1756; J1815; J2060; J2250; J2270; J2405; J2543; J2997; J3010; J3475; J7030; J7050; P9016; Q0169